=== PATIENT | female | born 1940 | race Caucasian/White ===

== ENCOUNTER → 2020-05-04 11:26 | Outpatient (CLI) | payer MEDICARE, SELFPAY ==
--- NOTE | ~2020-05-04 | MM_ITS ---
EXAMINATION: MM screening jojo BI w paco HISTORY: Screening mammogram TECHNIQUE: Craniocaudal and mediolateral oblique 3-D tomosynthesis images were obtained and synthetic 2-D images were generated. CAD analysis was submitted and interpreted. COMPARISON: 01/23/2019, 01/09/2018 and 12/28/2017 bilateral digital mammogram examinations BREAST PARENCHYMAL COMPOSITION: The breasts are heterogeneously dense, which may obscure small masses . FINDINGS: Occasional benign calcifications are noted. There is no evidence of suspicious mass, calcif ication, or architectural distortion to suggest malignancy in either breast. There has been no suspic ious interval change. IMPRESSION: 1. No mammographic evidence of malignancy. 2. Recommend routine screening mammography in one year. BI-RADS Category 1: Negative Reviewed, dictated and finalized at location A.
== END ==
PROVIDERS: PCP Internal Medicine; Visit Provider Obstetrics & Gynecology
DX: Z12.31 Encounter for screening mammogram for malignant neoplasm of breast (principal)
CPT/HCPCS: 77063; 77067

== ENCOUNTER 2020-06-28 16:04 | Emergency (ER) | payer MEDICARE, SELFPAY ==
--- NOTE | ~2020-06-28 | XR_ITS ---
EXAMINATION: XR shoulder RT min 2V EXAM DATE: 06/28/2020 17:22 INDICATION: Fall, right shoulder pain. TECHNIQUE: The following right shoulder projections obtained: frontal projection with internal rotati on, frontal projection with external rotation, Grashey, and scapular Y view (4+ views). There is no prior study for comparison. FINDINGS: Acute right-sided rib fractures. Glenohumeral and acromioclavicular joints have mild primar y osteoarthritis but are intact, without dislocation or fracture. IMPRESSION: 1. Right rib fractures. 2. Intact shoulder. Reviewed, dictated and finalized at location A.
--- NOTE | ~2020-06-28 | XR_ITS ---
EXAMINATION: XR ribs RT 2V w CXR 2V INDICATION: Right-sided rib pain after fall, initial encounter TECHNIQUE: Frontal and lateral views of the chest and 3 views of the right ribs were obtained. COMPARISON: None. FINDINGS: There is a comminuted and displaced fracture at the anterolateral aspect of the right fourt h rib. A fracture is also seen more posteriorly in the fourth rib. There is a segmental right fifth r ib fracture and a posterior, displaced fracture of the right sixth rib. No pneumothorax is identified . A small right pleural effusion is present. The cardiomediastinal silhouette is normal. There is mod erate thoracic spondylosis. IMPRESSION: 1. Right fourth through sixth rib fractures with segmental fractures of the fourth and fifth ribs. Reviewed, dictated and finalized at location A. IMPRESSION: 1. Right fourth through sixth rib fractures with segmental fractures of the fou rth and fifth ribs.
--- NOTE | 2020-06-28 16:08 | ED.FALL ---
HPI - Fall General Chief Complaint: Fall Stated Complaint: fall, pain rt ribs Time Seen by Provider: 06/28/20 16:08 Source: patient and family Mode of arrival: wheelchair Limitations: no limitations History of Present Illness HPI Narrative: Patient presented to the emergency department for evaluation of a ground-level fall. Patient states that she was walking to go to the bathroom when she lost her footing, falling onto the right side of the bathtub. Patient denies any head trauma or loss of consciousness. She is reporting right-sided rib pain and right shoulder pain. She denies numbness or weakness in the right upper extremity. Pain is dull, aching in nature. No central chest pain. No diaphoresis or shortness of breath. She does have pain with inspiration. She denies hip pain, lower extremity pain. Related Data Home Medications Medication Instructions Recorded Confirmed bimatoprost 0.01 % eye drops 1 drop EACH EYE DAILY 11/18/19 11/18/19 calcium 650 mg-vitamin D3 12.5 tablet PO 11/18/19 11/18/19 mcg-vitamin K 40 mcg chewable tablet cetirizine 10 mg tablet 5 mg PO DAILY 11/18/19 11/18/19 docusate sodium 100 mg capsule 100 mg PO DAILY 11/18/19 11/18/19 multivitamin 1 tablet PO DAILY 11/18/19 11/18/19 Benefiber (guar gum) 06/28/20 bimatoprost [Lumigan] drp 06/28/20 brimonidine [Alphagan P] drp 06/28/20 carbidopa-levodopa tablet 06/28/20 Allergies Allergy/AdvReac Type Severity Reaction Status Date / Time levofloxacin Allergy Unknown Rash Verified 06/28/20 16:50 prednisone Allergy Unknown Rash Verified 06/28/20 16:50 Sulfa (Sulfonamide Allergy Unknown Swelling Verified 06/28/20 16:50 Antibiotics) of Lip/Tongue/Throat sulfamethizole Allergy Unknown Rash Verified 06/28/20 16:50 sulfamethoxazole Allergy Unknown Rash Verified 06/28/20 16:50 trimethoprim Allergy Unknown Rash Verified 06/28/20 16:50 budesonide Allergy Swelling Verified 06/28/20 16:50 [From Rhinocort Aqua] of Lip/Tongue/Throat ciprofloxacin [From Cipro] Allergy Rash Verified 06/28/20 16:50 strawberry Allergy Unknown Verified 06/28/20 16:51 Review of Systems Review of Systems: Narrative: CONSTITUTIONAL: Denies fever EYES: Denies visual changes CARDIOVASCULAR: Denies chest pain, palpitations, or edema. RESPIRATORY: Denies cough or dyspnea. Reports pain with inspiration. GASTROINTESTINAL: Denies abdominal pain, nausea, vomiting, or diarrhea. GENITOURINARY: Denies dysuria or hematuria. SKIN: Denies rash or itching. ABrasion right elbow MUSCULOSKELETAL: Denies back pain, reports mild right shoulder pain NEUROLOGIC: Denies headache, numbness, or weakness. [facility] Past Medical History Medical History (Updated 06/28/20 @ 19:14 by Skylar Nicole MD) Benign essential hypertension Current moderate episode of major depressive disorder 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 episode Encounter for long-term (current) use of other medications Parkinson's disease Family History Family History (Updated 12/30/18 @ 07:57 by DOCTOR UNKNOWN) Father Depression, Onset Age: 70 Hypertension Social History Social History Alcohol intake: current Gender identity (if verbalized by the patient): Female Exam Narrative: Exam Narrative: Nursing note and vitals reviewed. CONSTITUTIONAL: The patient appears well-developed and well-nourished. No distress. HEAD: Normocephalic and atraumatic. EYES: PERRL, EOMI, normal conjunctiva, anicteric EARS: External ears clear bilaterally, no hemotympanum MOUTH: OP clear, no erythema, exudates NECK: midline trachea, supple, FROM. No midline cervical spinal tenderness. CARDIOVASCULAR: Normal rate, regular rhythm, normal heart sounds and intact distal pulses. No murmurs, rubs, gallops. PULMONARY: Effort normal and breath sounds normal. No respiratory distress. The patient has no wheezes, rales, ronchi. Mild right-sided chest wall tenderness, no crepitus or ecchymoses. AB
[2020-06-28 16:31] VITALS: BP 158/82; PULSE 73; RESP 16; TEMP 36.9; O2SAT 99
[2020-06-28 17:15] VITALS: RESP 18
[2020-06-28] MEDS: ACETAMINOPHEN 500 MG TABLET 1000 MG PO (17:45)
[2020-06-28] MEDS: TETANUS,DIPHTHERIA,AC PERTUSSIS ADULT (0.5 ML) BOOSTRIX IM (17:45)
[2020-06-28 19:42] VITALS: BP 148/78; PULSE 81; RESP 17; O2SAT 98
== END 2020-06-28 19:42 | disposition home or self-care (01) ==
PROVIDERS: Emergency Provider Emergency Medicine; PCP Internal Medicine
DX: S22.41XA Multiple fractures of ribs, right side, initial encounter for closed fracture (principal); Z23 Encounter for immunization; I10 Essential (primary) hypertension; G20 Parkinson's disease; W01.198A Fall on same level from slipping, tripping and stumbling with subsequent striking against other object, initial encounter
CPT/HCPCS: 71046; 71100; 73030; 90471; 90715; 99284; A9270

== ENCOUNTER 2020-07-09 10:46 | Outpatient (CLI) | payer MEDICARE, SELFPAY ==
--- NOTE | ~2020-07-09 | XR_ITS ---
EXAMINATION: XR hip RT min 2V DATE: 07/09/2020 11:50 INDICATION: Right hip pain. TECHNIQUE: 2 views of right hip were obtained. COMPARISON: None. FINDINGS: Bone alignment is normal. No fracture. Right hip joint space is normal. IMPRESSION: 1. Normal right hip. Reviewed, dictated and finalized at location A. IMPRESSION: 1. Normal right hip.
== END 2020-07-09 10:47 | disposition home or self-care (01) ==
LOC: ANHIMG 10:57
PROVIDERS: PCP Internal Medicine; Visit Provider Internal Medicine
DX: M25.559 Pain in unspecified hip (principal)
CPT/HCPCS: 73502

== ENCOUNTER 2020-07-28 10:29 | Observation (INO) | payer MEDICARE, SELFPAY ==
[2020-07-28] VITALS (34 sets, daily range): BP systolic 132–155; BP diastolic 64–87; PULSE 71–96; RESP 11–21; TEMP 36.1–36.8; O2SAT 95–100; BMI 25.1; BMI 21.7
--- NOTE | ~2020-07-28 | XR_ITS ---
EXAMINATION: XR hip RT 2V w AP pelvis DATE: 07/28/2020 14:06 INDICATION: Right hip pain post fall TECHNIQUE: Anteroposterior view of the pelvis and anteroposterior and frog-leg lateral views of the r ight hip were obtained. COMPARISON: 07/09/2020 FINDINGS: Alignment is normal. No fracture. Bilateral hip and right sacroiliac joint spaces are relatively pres erved. Mild left sacroiliac osteoarthritis. IMPRESSION: 1. Normal right hip. Reviewed, dictated and finalized at location A. NG HANGER SUPERVISOR IMPRESSION: 1. Normal right hip.
--- NOTE | ~2020-07-28 | XR_ITS ---
EXAMINATION: XR lumbar spine 2-3V DATE: 07/28/2020 14:06 INDICATION: Low back pain. Fall. TECHNIQUE: 3 views of lumbar spine were obtained. COMPARISON: None. FINDINGS: There is 5 degrees levocurvature of lumbar spine. Vertebral body heights are normal. Interv ertebral disc heights are normal. There are endplate osteophytes at most levels. There is multilevel severe facet joint osteoarthritis. IMPRESSION: 1. Mild lumbar spondylosis. Reviewed, dictated and finalized at location B. TRUCK DRIVER IMPRESSION: 1. Mild lumbar spondylosis.
--- NOTE | ~2020-07-28 | US_ITS ---
EXAMINATION: US art doppler w press LE DATE: 07/29/2020 13:13 INDICATION: Peripheral arterial disease. TECHNIQUE: Segmental pressures and plethysmographic and Doppler waveforms of the brachial and lower e xtremity arteries were obtained. COMPARISON: None. FINDINGS: Right and left brachial artery pressures of 145 mm Hg and 143 mm Hg, respectively, are concordant (no rmal difference <= 30 mmHg). The right ankle-brachial index (ADAM) is 1.13 (normal >= 0.9-1.0). The right great toe-brachial index (TBI) is 0.86 (normal >= 0.65). Arterial Doppler waveforms are biphasic from common femoral artery to the ankle. The left ADAM is 1.14. The left TBI is 1.21. Arterial Doppler waveforms are biphasic from common femor al artery to the ankle. IMPRESSION: 1. No significant arterial occlusive disease. Reviewed, dictated and finalized at location B. STANT SUPERINTENDENT FOR CURRICULUM
--- NOTE | ~2020-07-28 | XR_ITS ---
EXAMINATION: XR chest 1V DATE: 07/28/2020 14:06 INDICATION: Chest pain. Fall. TECHNIQUE: A single frontal view of the chest was obtained. COMPARISON: Chest 2 views 06/28/2020 FINDINGS: There is mild scarring at the lung apices. No pleural effusion or pneumothorax. The heart s ize is normal. There are healing fractures of right fourth, fifth, and sixth ribs. IMPRESSION: 1. Healing subacute fractures of right fourth-sixth ribs. Reviewed, dictated and finalized at location B. E ELECTRICIAN
--- NOTE | ~2020-07-28 | US_ITS ---
EXAMINATION: US venous doppler [facility] DATE: 07/29/2020 13:12 INDICATION: Right lower limb localized edema. TECHNIQUE: Grayscale ultrasound images without and with compression and Doppler ultrasound images of the bilateral lower extremity veins were obtained. COMPARISON: None. FINDINGS: The visualized portions of right common femoral vein, profunda (deep) femoral vein, femoral vein, pop liteal vein, peroneal veins, posterior tibial veins, and greater saphenous vein outflow are patent. The visualized portions of left common femoral vein, profunda femoral vein, femoral vein, popliteal v ein, peroneal veins, posterior tibial veins, and greater saphenous vein outflow are patent. IMPRESSION: 1. No deep venous thrombosis. Reviewed, dictated and finalized at location B. SERVICER
--- NOTE | ~2020-07-28 | CT_ITS ---
EXAMINATION: CT abdomen pelvis w con DATE: 07/30/2020 07:43 INDICATION: Right hip pain. Fall. TECHNIQUE: Computed tomography (CT) of the abdomen and pelvis was performed with 100 mL Omnipaque 350 intravenous contrast. Automated exposure control and iterative reconstruction technique were employe d. The dose-length product was 259.52 mGy-cm. COMPARISON: CT abdomen and pelvis 11/20/2012, pelvis and right hip radiographs 07/28/2020 FINDINGS: The visualized portions of the lung bases demonstrate mild atelectasis. There is a trace ri ght pleural effusion. The heart size is normal. No pericardial effusion. There is an 8 mm cyst in the liver. The gallbladder, spleen, pancreas, adrenal glands, and right kidney are normal. There is a 3. 9 cm cyst in left kidney. There are no dilated loops of bowel. The appendix is not visualized. There is a large volume of stool in the colon. There are no pathologically enlarged lymph nodes. There is n o free intraperitoneal fluid. There is mild osteoarthritis of the hips. There is mild lumbar spondylo sis. IMPRESSION: 1. Mild osteoarthritis of the hips. Reviewed, dictated and finalized at location B. CLEANER
--- NOTE | 2020-07-28 11:26 | ED.GENADULT ---
HPI - General Adult General Chief complaint: Extremity Injury, Lower Stated complaint: R HIP PAIN S/P FALL Time Seen by Provider: 07/28/20 10:47 Source: patient, family and EMS Limitations: no limitations History of Present Illness HPI narrative: Patient is 80 years old white female, had a fall while trying to get off her roller walker. Complaining of right hip pain. Patient denies any head, neck, or back injury. History of multiple falls secondary to parkinsonism. Patient arrived to the ED with her . Was seen by her neurologist 1 week ago with new adjustment of her parkinsonism medication Related Data Home Medications Medication Instructions Recorded Confirmed bimatoprost 0.01 % eye drops 1 drop EACH EYE DAILY 11/18/19 07/09/20 calcium 650 mg-vitamin D3 12.5 tablet PO 11/18/19 07/09/20 mcg-vitamin K 40 mcg chewable tablet cetirizine 10 mg tablet 5 mg PO DAILY 11/18/19 07/09/20 docusate sodium 100 mg capsule 100 mg PO DAILY 11/18/19 07/09/20 multivitamin 1 tablet PO DAILY 11/18/19 07/09/20 Benefiber (guar gum) 06/28/20 07/09/20 bimatoprost [Lumigan] drp 06/28/20 07/09/20 brimonidine [Alphagan P] drp 06/28/20 07/09/20 carbidopa-levodopa tablet 06/28/20 07/09/20 Allergies Allergy/AdvReac Type Severity Reaction Status Date / Time levofloxacin Allergy Unknown Rash Verified 06/28/20 16:50 prednisone Allergy Unknown Rash Verified 06/28/20 16:50 Sulfa (Sulfonamide Allergy Unknown Swelling Verified 06/28/20 16:50 Antibiotics) of Lip/Tongue/Throat sulfamethizole Allergy Unknown Rash Verified 06/28/20 16:50 sulfamethoxazole Allergy Unknown Rash Verified 06/28/20 16:50 trimethoprim Allergy Unknown Rash Verified 06/28/20 16:50 budesonide Allergy Swelling Verified 06/28/20 16:50 [From Rhinocort Aqua] of Lip/Tongue/Throat ciprofloxacin [From Cipro] Allergy Rash Verified 06/28/20 16:50 strawberry Allergy Unknown Verified 06/28/20 16:51 Review of Systems Review of Systems: Narrative: CONSTITUTIONAL: Denies fever, chills, or sweats. EYES: Denies visual changes, redness, or discharge. ENT: Denies rhinorrhea, congestion, sore throat, or otalgia. CARDIOVASCULAR: Denies chest pain, palpitations, or edema. RESPIRATORY: Denies cough or dyspnea. GASTROINTESTINAL: Denies abdominal pain, nausea, vomiting, or diarrhea. GENITOURINARY: Denies dysuria or hematuria. SKIN: Denies rash or itching. MUSCULOSKELETAL: Denies back pain, joint pain, or myalgia. NEUROLOGIC: Denies headache, numbness, or weakness. PSYCHIATRIC: Denies anxiety or depression. [facility] Past Medical History Medical History Benign essential hypertension Current moderate episode of major depressive disorder 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 episode Encounter for long-term (current) use of other medications Parkinson's disease Family History Family History Father Depression, Onset Age: 70 Hypertension Social History Social History Alcohol intake: current Gender identity (if verbalized by the patient): Female Exam Narrative: Exam Narrative: General appearance: Well-developed, well-nourished, hearing impairment, at the bedside Skin: Normal color Head: Normocephalic, nontraumatic Eyes: Clear conjunctiva ENT: Oropharynx normal, ears normal, nose normal Neck: Supple, nontender Chest and respiratory: Airway patent, no respiratory distress, no accessory muscle use Heart: Regular rate/rhythm Abdomen: Soft, nontender, no organomegaly, quiet bowel sounds Vascular: Normal peripheral pulses, normal capillary refill. Musculoskeletal: Diffuse tenderness of the right hip and across lower back. No bruises, no swelling, no deformity Neurologic: Alert and oriented ?3, CONSERVATION ENGINEER is normal as tested, no gross motor deficit
[2020-07-28] MEDS: MORPHINE SULFATE (*CRX) 4 MG/ML INJ IV PUSH (13:10)
[2020-07-28] MEDS: ONDANSETRON INJ 4 MG/2 ML VIAL IV PUSH (13:11)
--- NOTE | 2020-07-28 13:19 | ECG_ITS ---
Measurements Intervals [place] Rate: 84 P: 86 AR: 151 QRS: 20 QRSD: 89 T: 59 QT: 375 QTc: 445 Interpretive Statements SINUS RHYTHM POSSIBLE LEFT ATRIAL ENLARGEMENT BASELINE ARTIFACT- II, III, AVF BORDERLINE ECG Electronically Signed On 07-28-2020 17:12:28 ASPHALT SPREADER by Farhan Truong D.O.
[2020-07-28 14:36] LABS: Hematocrit 38.6 % (37.0-47.0); Mean Corpuscular HGB Conc 33.7 g/dl (32-36); Mean Corpuscular Hemoglobin 30.5 pg (26-34); Mean Corpuscular Volume 90.6 fl (80-100); Mean Platelet Volume 9.8 fl (7.4-10.4); Platelet Count Result 263 k/mm3 (150-375); Red Blood Count 4.26 M/mm3 (4.2-5.4); Red Cell Distribution Width 15.1 % (11.5-14.5); White Blood Count 6.3 K/mm3 (4.5-10.0)
[2020-07-28 14:41] LABS: Add Urine Microscopic? NO; Appearance Urine Clear (Clear); Bilirubin Urine Negative (Negative); Blood Urine Negative (Negative); Color Urine Colorless (Yellow); Glucose Urine UA Negative (Negative); Ketones Urine Negative (Negative); Leukocyte Esterase Ur Negative LEU/UL (Negative); Nitrate Urine Negative (Negative); Protein Urine Negative (Negative); Specific Grav Ur 1.009 (1.001-1.035); Urobilinogen Urine Negative mg/dL (<2.0)
[2020-07-28 14:51] LABS: Alanine Aminotransferase 7 U/L (4-35); Albumin Level 4.3 g/dL (3.5-5.1); Alkaline Phosphatase 79 U/L (38-126); Anion Gap 5 mmol/L (8-16); Aspartate Amino Transferase 41 U/L (14-36); Bilirubin,Total 0.5 mg/dL (0.2-1.3); Blood Urea Nitrogen 27 mg/dL (7-17); Calcium 9.4 mg/dL (8.4-10.2); Carbon Dioxide 34 mmol/L (22-30); Chloride 102 mmol/L (98-107); Estimated CRCL calculation 45 ml/min; Estimated Glomerular Filt Rate > 60; Glucose 102 mg/dL (65-105); Potassium 3.7 mmol/L (3.4-5.0); Sodium 141 mmol/L (137-145)
[2020-07-28 15:12] LABS: Platelet Estimate Adequate (Adequate)
--- NOTE | 2020-07-28 16:34 | PCCCNOTE ---
Spoke with pt and in ED. They would like short term SNF with rehab if possible and [facility] assisted [facility]. I attempted to contact Fernie (Nela) and Zoe (Ruy) and left message. Nobody called back yet. also wanted to know if [facility] in [place] would be a option. Pt and OK with gong home and trying to get placement but Dr Lundberg believed the better course would be to admit. home phone is [phone]; he has a cell phone but I did not get that number.
--- NOTE | 2020-07-28 17:34 | PCCCNOTE ---
Fernie tested back and indicated that he can help.
--- NOTE | 2020-07-28 18:13 | PC.NURSE ---
This patient, Ana Luisa Martinez, was admitted to Medical Room 340-01. Patient/family oriented to hospital policies and general routines including ID bracelet, bed and alarms, visiting hours, pain management, procedures, bathroom and other care routines, personal items, smoking policy, room service/diet, and visiting hours. Information on how to activate the Rapid Response Team has been discussed. Patient/Family are encouraged to report perceived risks to care and to ask questions if they do not understand what they are told or what they should do.
--- NOTE | 2020-07-28 21:14 | PM.IMHP ---
H&P: HPI History of Present Illness Date/Time: 07/28/20 21:14 Chief complaint: Fall/Parkinsonism/Right Hip Pain Narrative: Ana Luisa Martinez is a 80 year old female who lives with her and has Parkinson's. The patient recently had her Parkinson's medication increased due to her frequent falls. On 06/28/2020 where she had fallen and had 3 rib fractures at that time. The patient stated that she has not had any pain from that she is complaining of right hip pain. The right leg is swollen and she has a purple 10 collar to her and a weak pulse.the patient had x-ray it was read as a normal hip. Today. She had turned around and went to sit down with that but fell on the floor. A she denies hitting her head and has no complaints of any pain to her head her neurologist changed her Parkinson's medication about a week ago. Patient tells me that her hip was hurting her prior to her last fall when she fractured her ribs. She does not recall being checked for PE or DVT or having a DVT but both of her children have factor 5 Leiden. The right leg is twice as big as the left. Patient is holding her thigh complaining of pain she has weak pulses that right leg Zofran in the emergency room as well as morphine. Urine is negative healing subacute fractures of right 4th through 6th ribs. Lumbar spondylosis. Leg and is moving the right leg very slowly. There is no distortion other than the purple color on the bottom of foot. Possibly just hematoma. Patient is being admitted for observation date of service 07/28/2020 Review of Systems Review of Systems: All systems reviewed & are unremarkable except as noted in HPI and below Constitutional: Constitutional: Reports as per HPI and Reports no additional constitutional complaints Eyes: Eyes: Reports as per HPI and Reports no additional eye complaints ENT: Reports system reviewed and no additional complaints, except as documented and Reports Normal hearing present Cardiovascular: Cardiovascular: Reports no additional cardiovascular complaints Respiratory: Respiratory: Reports no additional respiratory complaints and Reports no additional respiratory complaints Gastrointestinal: Gastrointestinal: Reports as per HPI and Reports no additional gastrointestinal complaints Musculoskeletal: Musculoskeletal: Reports no additional musculoskeletal complaints Integumentary/Breasts: Skin/Breast: Reports system reviewed and no additional complaints, except as docu and Reports as per HPI Neurologic: Reports system reviewed and no additional complaints, except as documented, Reports as per HPI and Reports Normal hearing present Psychiatric: Psychiatric: Reports no additional psychiatric complaints and Reports as per HPI Endocrine: Endocrine: Reports no additional endocrine complaints Hematologic/Lymphatic: Hematologic/Lymphatic: Reports no additional hematologic/lymphatic complaints Allergic/Immunologic: Allergic/Immunologic: Reports no additional allergic/immunologic complaints [facility] Past Medical History Medical History (Updated 07/28/20 @ 21:27 by Lin Witt NP) Benign essential hypertension Current moderate episode of major depressive disorder 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 episode Depression with anxiety Encounter for long-term (current) use of other medications Glaucoma Oral cancer With radiation and surgery Overactive bladder Parkinson's disease Surgical History Surgical History (Updated 07/28/20 @ 21:27 by Lin Witt NP) H/O skin graft Left thigh H/O: hysterectomy History of ankle surgery On the left History of appendectomy When she had a hysterectomy History of oral surgery Secondary to cancer Family History Family History (Updated 07/28/20 @ 21:28 by Lin Witt NP) Father Depression, Onset Age: 70 Hypertension Suicide Son Factor 5 Leiden mutation, heterozygous Daughter Factor 5 Leiden mutation, heterozygous Mother Cancer Social History Social History (Updat
[2020-07-28] MEDS: BRIMONIDINE TARTRATE 0.2% OP SOLN 5 ML BTL 1 DROP EACH EYE (22:04)
[2020-07-28] MEDS: CARBIDOPA/LEVODOPA 25/100 MG TABLET 2 TABLET PO (22:04)
[2020-07-28] MEDS: OXYBUTYNIN CHLORIDE 5 MG TABLET PO (22:04)
[2020-07-28] MEDS: TIMOLOL MALEATE 0.5% OP SOLN 5 ML BOTTLE 1 DROP EACH EYE (22:04)
[2020-07-29 05:54] LABS: Basophils Percent Auto 0.4 % (0.2-1.2); Eosinophils Absolute Auto 0.2 K/mm3 (0-0.3); Eosinophils Percent Auto 4.1 % (0-4.4); Hematocrit 37.2 % (37.0-47.0); Hemoglobin 12.5 g/dL (12.0-15.0); Immature Granulocyte Absolute 0.03 K/mm3 (0.00-0.031); Immature Granulocyte Percent A 0.6 % (0-0.5); Lymphocytes Absolute Auto 0.46 K/mm3 (0.9-3.2); Lymphocytes Percent Auto 8.7 % (18.3-44.2); Mean Corpuscular HGB Conc 33.6 g/dl (32-36); Mean Corpuscular Volume 89.2 fl (80-100); Mean Platelet Volume 10.4 fl (7.4-10.4); Monocytes Percent Auto 19.6 % (2.6-8.5); Neutrophils Absolute Auto 3.5 K/mm3 (1.3-6.7); Neutrophils Percent Auto 66.6 % (45.5-73.1); Platelet Count Result 261 k/mm3 (150-375); Red Blood Count 4.17 M/mm3 (4.2-5.4); Red Cell Distribution Width 14.9 % (11.5-14.5); White Blood Count 5.3 K/mm3 (4.5-10.0)
[2020-07-29 05:58] LABS: Alanine Aminotransferase 6 U/L (4-35); Albumin Level 3.7 g/dL (3.5-5.1); Alkaline Phosphatase 73 U/L (38-126); Anion Gap 1 mmol/L (8-16); Aspartate Amino Transferase 48 U/L (14-36); Bilirubin,Total 0.5 mg/dL (0.2-1.3); Blood Urea Nitrogen 22 mg/dL (7-17); CRP 1.8 mg/dL (<1.0); Calcium 9.2 mg/dL (8.4-10.2); Carbon Dioxide 37 mmol/L (22-30); Chloride 98 mmol/L (98-107); Estimated CRCL calculation 40 ml/min; Estimated Glomerular Filt Rate > 60; Glucose 94 mg/dL (65-105); Magnesium 2.4 mg/dL (1.6-2.3); Potassium 4.3 mmol/L (3.4-5.0); Sodium 136 mmol/L (137-145)
[2020-07-29 06:00] VITALS: BP 145/79; PULSE 80; RESP 16; TEMP 36.4; O2SAT 100
[2020-07-29] MEDS: CARBIDOPA/LEVODOPA 25/100 MG TABLET 2 TABLET PO ×4 (08:15→21:48)
[2020-07-29] MEDS: BRIMONIDINE TARTRATE 0.2% OP SOLN 5 ML BTL 1 DROP EACH EYE ×2 (08:15→21:48)
[2020-07-29] MEDS: CITALOPRAM HYDROBROMIDE 20 MG TABLET PO (08:16)
[2020-07-29] MEDS: LORATADINE 5 MG TABLET PO (08:16)
[2020-07-29] MEDS: LATANOPROST 0.005% OP SOLN 2.5 ML BTL 1 DROP EACH EYE (08:16)
[2020-07-29] MEDS: CHOLECALCIFEROL 1,000 UNITS TABLET 2000 UNITS PO (08:16)
[2020-07-29] MEDS: ENOXAPARIN 40 MG/0.4 ML SYRINGE SUB-Q (08:16)
[2020-07-29] MEDS: TIMOLOL MALEATE 0.5% OP SOLN 5 ML BOTTLE 1 DROP EACH EYE ×2 (08:16→21:48)
[2020-07-29] MEDS: MULTIVITAMINS THERAPEUTIC TAB (*BKC) 1 TABLET PO (08:17)
[2020-07-29] MEDS: NIFEdipine 30 MG TAB.ER.24 PO (08:17)
--- NOTE | 2020-07-29 10:46 | WPDNEURCNPN ---
Assessment and Plan Assessment and plan (1) Depression with anxiety: Code(s): F41.8 - Other specified anxiety disorders Status: Chronic (2) Unable to walk: Code(s): R26.2 - Difficulty in walking, not elsewhere classified Status: Acute (3) Parkinson's disease: Code(s): G20 - Parkinson's disease Status: Acute Additional Plan as far as the anti parkinsonian medications are concerned she receiving the appropriate dosage she can be evaluated by the physical therapy to help her with the gait and ambulation and her and her right lower extremity needs to be checked for the chronic DVT Consult date: 07/29/20 Time Seen: 10:15 HPI: Ana Luisa Martinez is a 80 year old female Has been admitted to the hospital with the complaints of fall in addition to the underlying diagnosis of Parkinson's disease, most recently her medications were adjusted in addition she has fallen several times resulting in the rib fractures. on the day of admission this time she had turned around and went to sit down but fell on the floor .additionally she complained of pain in her hip she herself has not been checked for the PE or DVT but both of her children have factor 5 laden and her right leg is big as compared to the left lower extremity she does have ongoing history of hypertension, anxiety with depression, glaucoma and bladder dysfunction in addition to the history of oral cancer for which she has undergone radiation treatment and surgery Review of Systems Review of Systems: All systems reviewed & are unremarkable except as noted in HPI and below PMFSH Past Medical History Medical History Benign essential hypertension Current moderate episode of major depressive disorder 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 episode Depression with anxiety Encounter for long-term (current) use of other medications Glaucoma Oral cancer With radiation and surgery Overactive bladder Parkinson's disease Surgical History Surgical History H/O skin graft Left thigh H/O: hysterectomy History of ankle surgery On the left History of appendectomy When she had a hysterectomy History of oral surgery Secondary to cancer Family History Family History Father Depression, Onset Age: 70 Hypertension Suicide Son Factor 5 Leiden mutation, heterozygous Daughter Factor 5 Leiden mutation, heterozygous Mother Cancer Social History Social History Social History: The patient stated that she quit smoking over 50 years ago. She has 3 children. The patient is a retired high school combination teacher no alcohol or illicit drugs. Her is a durable power of erisa attorney. She desires to be a full code. Smoking status: Former smoker Alcohol intake: current Substance use: never Gender identity (if verbalized by the patient): Female Spiritual care concerns: No Meds Home Medications and Allergies Home Medications Medication Instructions Recorded Confirmed Type bimatoprost 0.01 % eye drops 1 drop EACH EYE DAILY 11/18/19 07/28/20 History calcium 650 mg-vitamin D3 12.5 1 tablet PO DAILY 11/18/19 07/28/20 History mcg-vitamin K 40 mcg chewable tablet cetirizine 10 mg tablet 5 mg PO DAILY 11/18/19 07/28/20 History docusate sodium 100 mg capsule 100 mg PO DAILY PRN 11/18/19 07/28/20 History multivitamin 1 tablet PO DAILY 11/18/19 07/28/20 History nifedipine 30 mg tablet,extended 30 mg PO DAILY #90 tablet 01/02/20 07/28/20 Rx release Benefiber (guar gum) 2 tsp PO DAILY PRN 06/28/20 07/28/20 History carbidopa-levodopa 2 tablet PO QID 06/28/20 07/28/20 History citalopram 20 mg tablet 20 mg PO DAILY #90 tablet 06/28/20 07/28/20 Rx brimonidine-timolol [Combigan] 1 drp OPHTHALMIC (EYE) Q12H 07/28/20 07/28/20 History cholecalciferol (vitamin D3) 50 mcg PO DAILY 07/28/20
--- NOTE | 2020-07-29 10:47 | PCPTNOTE ---
Attempted PT evaluation. Hold per nursing. Awaiting doppler. Will attempt again when appropriate.
--- NOTE | 2020-07-29 11:08 | PCOTNOTE ---
Attempted OT evaluation. Patient awaiting Doppler. Will attempt when appropriate.
[2020-07-29 14:44] VITALS: BP 131/72; PULSE 80; RESP 16; TEMP 35.7; O2SAT 96
--- NOTE | 2020-07-29 15:10 | PM.IMPN ---
Progress Note: A&P Assessment and Plan (1) Hip pain: Code(s): M25.559 - Pain in unspecified hip Status: Acute Assessment and Plan: Patient is holding her leg up in complaining of right thigh pain. Her right leg is larger than the left and patient's tells me that she has never had a blood clot in has never been checked for 1. Although her children have the factor 5 laden deficiency. She had 2 x-rays since her last 2 falls and it was found to be negative. She has a purplish black color on the bottom of her foot a took pictures and showed it to her and she did not tell me anything about any black slippers however the nurse told me that she had a new pair black slippers. However the left foot is not discolored but the bottom the right foot is. She has a weak pulse to the right and edema so I will check her for venous Doppler as well as arterial Doppler. The patient tells me that she has had right hip pain prior to any fall. 07/29/20 15:10 Patient is 80-year-old female with a history of Parkinson's recently patient medication were changed due to fall apparently patient had a fall on June 26 resulting in fracture of right 4th 5th and 6th ribs, patient also right hip and lower extremity pain and swelling patient also has a bruising bluish tint along her right foot on medial aspect, patient's children are factor 5 Leiden deficient to further evaluate patient had arterial and venous Doppler of the right lower extremity which essentially normal. Patient was seen by Neurologist and suggested patient Parkinson medicine appropriate and does not need to be changed recommended patient will benefit acute rehab, will continue to monitor have PT OT evaluate the patient and further recommendation to follow. (2) Parkinson's disease: Code(s): G20 - Parkinson's disease Status: Acute Assessment and Plan: I did consult Neurology to evaluate her medications. Will continue with her home medications of carbidopa levodopa. PT and OT evaluation as well. e learning coordinator for possible rehab. (3) Depression with anxiety: Code(s): F41.8 - Other specified anxiety disorders Status: Chronic Assessment and Plan: P.r.n. Ativan (4) Overactive bladder: Code(s): N32.81 - Overactive bladder Status: Chronic Assessment and Plan: Continue Oxybutin (5) Benign essential hypertension: Code(s): I10 - Essential (primary) hypertension Status: Chronic Assessment and Plan: Continue with nifedipine. (6) Glaucoma: Code(s): H40.9 - Unspecified glaucoma Status: Chronic Assessment and Plan: Continue with home eye drops. Subjective Date/time seen: 07/29/20 15:10 Patient is 80-year-old female with a history of Parkinson's recently patient medication were changed due to fall apparently patient had a fall on June 26 resulting in fracture of right 4th 5th and 6th ribs, patient also right hip and lower extremity pain and swelling patient also has a bruising bluish tint along her right foot on medial aspect, patient's children are factor 5 Leiden deficient to further evaluate patient had arterial and venous Doppler of the right lower extremity which essentially normal. Patient was seen by Neurologist and suggested patient Parkinson medicine appropriate and does not need to be changed recommended patient will benefit acute rehab, will continue to monitor have PT OT evaluate the patient and further recommendation to follow. Review of Systems Review of Systems: All systems reviewed & are unremarkable except as noted in HPI and below Exam Narrative: Exam Narrative: Elderly frail chronically ill Patient is comfortable, NAD HEENT: eyes are clear and none icteric LUNGS: Bilateral fair entry with minimal rhonchi HEART: RR S1S2 ABD: BS+, Soft and nontender Lower extremities: no edema MS: Right lower extremity appears edema right foot medial aspect appears bruising and has a bl
[2020-07-29 20:40] VITALS: BP 144/81; PULSE 73; RESP 16; TEMP 36.4; O2SAT 99
[2020-07-29] MEDS: DOCUSATE SODIUM 100 MG CAPSULE PO (21:48)
[2020-07-29] MEDS: OXYBUTYNIN CHLORIDE 5 MG TABLET PO (21:48)
[2020-07-30] MEDS: oxyCODONE/ACETAMINOPHEN (*CRX) 5-325 MG TABLET 1 TABLET PO ×2 (05:45→20:30)
[2020-07-30 06:00] VITALS: BP 148/71; PULSE 75; RESP 16; TEMP 36.2; O2SAT 100
[2020-07-30 06:03] LABS: Hematocrit 37.9 % (37.0-47.0); Hemoglobin 12.9 g/dL (12.0-15.0); Mean Corpuscular Hemoglobin 30.9 pg (26-34); Mean Corpuscular Volume 90.9 fl (80-100); Mean Platelet Volume 10.2 fl (7.4-10.4); Platelet Count Result 262 k/mm3 (150-375); Red Blood Count 4.17 M/mm3 (4.2-5.4); Red Cell Distribution Width 15.1 % (11.5-14.5); White Blood Count 5.7 K/mm3 (4.5-10.0)
[2020-07-30 06:30] LABS: Anion Gap 5 mmol/L (8-16); Blood Urea Nitrogen 21 mg/dL (7-17); Calcium 8.7 mg/dL (8.4-10.2); Carbon Dioxide 34 mmol/L (22-30); Chloride 99 mmol/L (98-107); Estimated CRCL calculation 45 ml/min; Estimated Glomerular Filt Rate > 60; Glucose 101 mg/dL (65-105); Potassium 3.2 mmol/L (3.4-5.0); Sodium 138 mmol/L (137-145)
[2020-07-30] MEDS: BRIMONIDINE TARTRATE 0.2% OP SOLN 5 ML BTL 1 DROP EACH EYE ×2 (07:59→20:29)
[2020-07-30] MEDS: TIMOLOL MALEATE 0.5% OP SOLN 5 ML BOTTLE 1 DROP EACH EYE ×2 (07:59→20:29)
[2020-07-30] MEDS: LORATADINE 5 MG TABLET PO (07:59)
[2020-07-30] MEDS: CHOLECALCIFEROL 1,000 UNITS TABLET 2000 UNITS PO (07:59)
[2020-07-30] MEDS: CITALOPRAM HYDROBROMIDE 20 MG TABLET PO (08:00)
[2020-07-30] MEDS: NIFEdipine 30 MG TAB.ER.24 PO (08:00)
[2020-07-30] MEDS: CARBIDOPA/LEVODOPA 25/100 MG TABLET 2 TABLET PO ×4 (08:00→20:30)
[2020-07-30] MEDS: PSYLLIUM POWDER PACKET 1 PACKET BY MOUTH (08:01)
[2020-07-30] MEDS: LATANOPROST 0.005% OP SOLN 2.5 ML BTL 1 DROP EACH EYE (08:02)
[2020-07-30] MEDS: ENOXAPARIN 40 MG/0.4 ML SYRINGE SUB-Q (08:02)
[2020-07-30] MEDS: MULTIVITAMINS THERAPEUTIC TAB (*BKC) 1 TABLET PO (08:03)
[2020-07-30] MEDS: POTASSIUM CHLORIDE 20 MEQ PACKET (FOR LIQUID) 40 MEQ PO (11:23)
[2020-07-30 13:04] VITALS: O2SAT 99
[2020-07-30 14:00] VITALS: BP 123/58; PULSE 84; RESP 16; TEMP 36.4; O2SAT 98
--- NOTE | 2020-07-30 16:43 | PM.IMPN ---
Progress Note: A&P Assessment and Plan (1) Hip pain: Code(s): M25.559 - Pain in unspecified hip Status: Acute Assessment and Plan: Patient is holding her leg up in complaining of right thigh pain. Her right leg is larger than the left and patient's tells me that she has never had a blood clot in has never been checked for 1. Although her children have the factor 5 laden deficiency. She had 2 x-rays since her last 2 falls and it was found to be negative. She has a purplish black color on the bottom of her foot a took pictures and showed it to her and she did not tell me anything about any black slippers however the nurse told me that she had a new pair black slippers. However the left foot is not discolored but the bottom the right foot is. She has a weak pulse to the right and edema so I will check her for venous Doppler as well as arterial Doppler. The patient tells me that she has had right hip pain prior to any fall. 07/30/20 16:43 Patient is 80-year-old female with a history of Parkinson's recently patient medication were changed due to fall apparently patient had a fall on June 26 resulting in fracture of right 4th 5th and 6th ribs, patient also right hip and lower extremity pain and swelling patient also has a bruising bluish tint along her right foot on medial aspect, patient's children are factor 5 Leiden deficient to further evaluate patient had arterial and venous Doppler of the right lower extremity which essentially normal. Patient was seen by Neurologist and suggested patient Parkinson medicine appropriate and does not need to be changed recommended patient will benefit acute rehab, will continue to monitor have PT OT evaluate the patient and further recommendation to follow. Today patient is feeling much better able to participate in physical therapy, will continue to monitor the patient patient will benefit going to acute rehab factor 5 Leiden is pending (2) Parkinson's disease: Code(s): G20 - Parkinson's disease Status: Acute Assessment and Plan: I did consult Neurology to evaluate her medications. Will continue with her home medications of carbidopa levodopa. PT and OT evaluation as well. auto club safety program coordinator for possible rehab. (3) Depression with anxiety: Code(s): F41.8 - Other specified anxiety disorders Status: Chronic Assessment and Plan: P.r.n. Ativan (4) Overactive bladder: Code(s): N32.81 - Overactive bladder Status: Chronic Assessment and Plan: Continue Oxybutin (5) Benign essential hypertension: Code(s): I10 - Essential (primary) hypertension Status: Chronic Assessment and Plan: Continue with nifedipine. (6) Glaucoma: Code(s): H40.9 - Unspecified glaucoma Status: Chronic Assessment and Plan: Continue with home eye drops. Subjective Date/time seen: 07/30/20 16:43 Patient is 80-year-old female with a history of Parkinson's recently patient medication were changed due to fall apparently patient had a fall on June 26 resulting in fracture of right 4th 5th and 6th ribs, patient also right hip and lower extremity pain and swelling patient also has a bruising bluish tint along her right foot on medial aspect, patient's children are factor 5 Leiden deficient to further evaluate patient had arterial and venous Doppler of the right lower extremity which essentially normal. Patient was seen by Neurologist and suggested patient Parkinson medicine appropriate and does not need to be changed recommended patient will benefit acute rehab, will continue to monitor have PT OT evaluate the patient and further recommendation to follow. Today patient is feeling much better able to participate in physical therapy, will continue to monitor the patient patient will benefit going to acute rehab factor 5 Leiden is pending Review of Systems Review of Systems: All systems reviewed & are unremarkable except as noted in HPI and
[2020-07-30] MEDS: OXYBUTYNIN CHLORIDE 5 MG TABLET PO (20:29)
[2020-07-30 21:49] VITALS: BP 131/65; PULSE 68; RESP 16; TEMP 36.6; O2SAT 96
[2020-07-31 05:49] LABS: Hematocrit 35.5 % (37.0-47.0); Hemoglobin 12.1 g/dL (12.0-15.0); Mean Corpuscular HGB Conc 34.1 g/dl (32-36); Mean Corpuscular Volume 87.9 fl (80-100); Mean Platelet Volume 10.6 fl (7.4-10.4); Platelet Count Result 245 k/mm3 (150-375); Red Blood Count 4.04 M/mm3 (4.2-5.4); Red Cell Distribution Width 14.9 % (11.5-14.5); White Blood Count 4.9 K/mm3 (4.5-10.0)
[2020-07-31 06:00] VITALS: BP 152/73; PULSE 63; RESP 16; TEMP 37; O2SAT 96
[2020-07-31] MEDS: oxyCODONE/ACETAMINOPHEN (*CRX) 5-325 MG TABLET 1 TABLET PO ×3 (06:05→22:15)
[2020-07-31 07:01] LABS: Anion Gap 3 mmol/L (8-16); Blood Urea Nitrogen 23 mg/dL (7-17); Calcium 8.9 mg/dL (8.4-10.2); Carbon Dioxide 30 mmol/L (22-30); Chloride 102 mmol/L (98-107); Estimated CRCL calculation 52 ml/min; Estimated Glomerular Filt Rate > 60; Glucose 101 mg/dL (65-105); Potassium 3.4 mmol/L (3.4-5.0); Sodium 135 mmol/L (137-145)
[2020-07-31] MEDS: CARBIDOPA/LEVODOPA 25/100 MG TABLET 2 TABLET PO ×4 (07:55→22:15)
[2020-07-31] MEDS: BRIMONIDINE TARTRATE 0.2% OP SOLN 5 ML BTL 1 DROP EACH EYE ×2 (07:55→22:15)
[2020-07-31] MEDS: ENOXAPARIN 40 MG/0.4 ML SYRINGE SUB-Q (07:56)
[2020-07-31] MEDS: CHOLECALCIFEROL 1,000 UNITS TABLET 2000 UNITS PO (07:56)
[2020-07-31] MEDS: CITALOPRAM HYDROBROMIDE 20 MG TABLET PO (07:56)
[2020-07-31] MEDS: TIMOLOL MALEATE 0.5% OP SOLN 5 ML BOTTLE 1 DROP EACH EYE ×2 (07:57→22:15)
[2020-07-31] MEDS: LORATADINE 5 MG TABLET PO (07:57)
[2020-07-31] MEDS: NIFEdipine 30 MG TAB.ER.24 PO (07:57)
[2020-07-31] MEDS: MULTIVITAMINS THERAPEUTIC TAB (*BKC) 1 TABLET PO (07:57)
[2020-07-31] MEDS: LATANOPROST 0.005% OP SOLN 2.5 ML BTL 1 DROP EACH EYE (07:57)
[2020-07-31] MEDS: POTASSIUM CHLORIDE 20 MEQ PACKET (FOR LIQUID) 40 MEQ PO (10:58)
[2020-07-31] MEDS: LIDOCAINE 5% PATCH 2 PATCH TRANSDERM (10:58)
[2020-07-31] MEDS: DOCUSATE SODIUM 100 MG CAPSULE PO (12:20)
[2020-07-31 13:19] LABS: SARS-CoV-2 RNA PCR Negative
[2020-07-31 14:00] VITALS: BP 147/93; PULSE 69; RESP 16; TEMP 37.1; O2SAT 97
--- NOTE | 2020-07-31 16:47 | PM.IMPN ---
Progress Note: A&P Assessment and Plan (1) Hip pain: Code(s): M25.559 - Pain in unspecified hip Status: Acute Assessment and Plan: Patient is holding her leg up in complaining of right thigh pain. Her right leg is larger than the left and patient's tells me that she has never had a blood clot in has never been checked for 1. Although her children have the factor 5 laden deficiency. She had 2 x-rays since her last 2 falls and it was found to be negative. She has a purplish black color on the bottom of her foot a took pictures and showed it to her and she did not tell me anything about any black slippers however the nurse told me that she had a new pair black slippers. However the left foot is not discolored but the bottom the right foot is. She has a weak pulse to the right and edema so I will check her for venous Doppler as well as arterial Doppler. The patient tells me that she has had right hip pain prior to any fall. 07/31/20 16:47 Patient is 80-year-old female with a history of Parkinson's recently patient medication were changed due to fall apparently patient had a fall on June 26 resulting in fracture of right 4th 5th and 6th ribs, patient also right hip and lower extremity pain and swelling patient also has a bruising bluish tint along her right foot on medial aspect, patient's children are factor 5 Leiden deficient to further evaluate patient had arterial and venous Doppler of the right lower extremity which essentially normal. Patient was seen by Neurologist and suggested patient Parkinson medicine appropriate and does not need to be changed recommended patient will benefit acute rehab, will continue to monitor have PT OT evaluate the patient and further recommendation to follow. Yesterday patient was able to participate in physical therapy however today her right lower extremity is painful unable to extent without pain, patient was not able to participate in physical therapy, will apply Lidoderm patches for pain control, awaiting authorization for [facility] or jail facility, patient will benefit from acute rehab, patient denies any abdominal pain nausea or vomiting fever or chills (2) Parkinson's disease: Code(s): G20 - Parkinson's disease Status: Acute Assessment and Plan: I did consult Neurology to evaluate her medications. Will continue with her home medications of carbidopa levodopa. PT and OT evaluation as well. reconciliation coordinator for possible rehab. (3) Depression with anxiety: Code(s): F41.8 - Other specified anxiety disorders Status: Chronic Assessment and Plan: P.r.n. Ativan (4) Overactive bladder: Code(s): N32.81 - Overactive bladder Status: Chronic Assessment and Plan: Continue Oxybutin (5) Benign essential hypertension: Code(s): I10 - Essential (primary) hypertension Status: Chronic Assessment and Plan: Continue with nifedipine. (6) Glaucoma: Code(s): H40.9 - Unspecified glaucoma Status: Chronic Assessment and Plan: Continue with home eye drops. Subjective Date/time seen: 07/31/20 16:47 Patient is 80-year-old female with a history of Parkinson's recently patient medication were changed due to fall apparently patient had a fall on June 26 resulting in fracture of right 4th 5th and 6th ribs, patient also right hip and lower extremity pain and swelling patient also has a bruising bluish tint along her right foot on medial aspect, patient's children are factor 5 Leiden deficient to further evaluate patient had arterial and venous Doppler of the right lower extremity which essentially normal. Patient was seen by Neurologist and suggested patient Parkinson medicine appropriate and does not need to be changed recommended patient will benefit acute rehab, will continue to monitor have PT OT evaluate the patient and further recommendation to follow. Yesterday patient was able to participate in physical therap
[2020-07-31 22:00] VITALS: BP 136/65; PULSE 73; RESP 15; TEMP 36.6; O2SAT 97
[2020-07-31] MEDS: OXYBUTYNIN CHLORIDE 5 MG TABLET PO (22:15)
[2020-08-01 05:38] VITALS: BP 147/66; PULSE 63; RESP 16; TEMP 36.2; O2SAT 100
[2020-08-01 05:59] LABS: Hematocrit 35.5 % (37.0-47.0); Hemoglobin 11.9 g/dL (12.0-15.0); Mean Corpuscular HGB Conc 33.5 g/dl (32-36); Mean Corpuscular Hemoglobin 30.6 pg (26-34); Mean Corpuscular Volume 91.3 fl (80-100); Mean Platelet Volume 10.4 fl (7.4-10.4); Platelet Count Result 264 k/mm3 (150-375); Red Blood Count 3.89 M/mm3 (4.2-5.4); Red Cell Distribution Width 15.2 % (11.5-14.5); White Blood Count 8.3 K/mm3 (4.5-10.0)
[2020-08-01 06:13] LABS: Anion Gap 3 mmol/L (8-16); Blood Urea Nitrogen 23 mg/dL (7-17); Calcium 8.6 mg/dL (8.4-10.2); Carbon Dioxide 34 mmol/L (22-30); Chloride 102 mmol/L (98-107); Estimated CRCL calculation 45 ml/min; Estimated Glomerular Filt Rate > 60; Glucose 97 mg/dL (65-105); Potassium 3.6 mmol/L (3.4-5.0); Sodium 139 mmol/L (137-145)
[2020-08-01] MEDS: oxyCODONE/ACETAMINOPHEN (*CRX) 5-325 MG TABLET 1 TABLET PO ×3 (08:19→22:06)
[2020-08-01] MEDS: CARBIDOPA/LEVODOPA 25/100 MG TABLET 2 TABLET PO ×4 (08:20→21:29)
[2020-08-01] MEDS: BRIMONIDINE TARTRATE 0.2% OP SOLN 5 ML BTL 1 DROP EACH EYE ×2 (08:20→21:29)
[2020-08-01] MEDS: LIDOCAINE 5% PATCH 2 PATCH TRANSDERM (08:20)
[2020-08-01] MEDS: ENOXAPARIN 40 MG/0.4 ML SYRINGE SUB-Q (08:21)
[2020-08-01] MEDS: CHOLECALCIFEROL 1,000 UNITS TABLET 2000 UNITS PO (08:22)
[2020-08-01] MEDS: CITALOPRAM HYDROBROMIDE 20 MG TABLET PO (08:22)
[2020-08-01] MEDS: LORATADINE 5 MG TABLET PO (08:22)
[2020-08-01] MEDS: MULTIVITAMINS THERAPEUTIC TAB (*BKC) 1 TABLET PO (08:23)
[2020-08-01] MEDS: NIFEdipine 30 MG TAB.ER.24 PO (08:23)
[2020-08-01] MEDS: TIMOLOL MALEATE 0.5% OP SOLN 5 ML BOTTLE 1 DROP EACH EYE ×2 (08:23→21:29)
[2020-08-01] MEDS: LATANOPROST 0.005% OP SOLN 2.5 ML BTL 1 DROP EACH EYE (08:23)
[2020-08-01] MEDS: POTASSIUM CHLORIDE 20 MEQ PACKET (FOR LIQUID) 40 MEQ PO (09:13)
[2020-08-01 14:00] VITALS: BP 119/54; PULSE 74; RESP 16; TEMP 36.4; O2SAT 100
--- NOTE | 2020-08-01 15:16 | PM.IMPN ---
Progress Note: A&P Assessment and Plan (1) Hip pain: Code(s): M25.559 - Pain in unspecified hip Status: Acute Assessment and Plan: 08/01/20 15:16 Patient is holding her leg up in complaining of right thigh pain. Her right leg is larger than the left and patient's tells me that she has never had a blood clot in has never been checked for 1. Although her children have the factor 5 laden deficiency. She had 2 x-rays since her last 2 falls and it was found to be negative. She has a purplish black color on the bottom of her foot a took pictures and showed it to her and she did not tell me anything about any black slippers however the nurse told me that she had a new pair black slippers. However the left foot is not discolored but the bottom the right foot is. She has a weak pulse to the right and edema so I will check her for venous Doppler as well as arterial Doppler. The patient tells me that she has had right hip pain prior to any fall. 07/31/20 16:47 Patient is 80-year-old female with a history of Parkinson's recently patient medication were changed due to fall apparently patient had a fall on June 26 resulting in fracture of right 4th 5th and 6th ribs, patient also right hip and lower extremity pain and swelling patient also has a bruising bluish tint along her right foot on medial aspect, patient's children are factor 5 Leiden deficient to further evaluate patient had arterial and venous Doppler of the right lower extremity which essentially normal. Patient was seen by Neurologist and suggested patient Parkinson medicine appropriate and does not need to be changed recommended patient will benefit acute rehab, will continue to monitor have PT OT evaluate the patient and further recommendation to follow. on 07/30 patient was able to participate in physical therapy however on 07/31 her right lower extremity was painful was unable to extent without pain, patient was not able to participate in physical therapy, appllied Lidoderm patches for pain control, Today 08/01 patient is feeling much better Lidoderm patches to helping is able to move her right lower extremity, awaiting authorization for [facility] or detention facility, patient will benefit from acute rehab, patient denies any abdominal pain nausea or vomiting fever or chills (2) Parkinson's disease: Code(s): G20 - Parkinson's disease Status: Acute Assessment and Plan: I did consult Neurology to evaluate her medications. Will continue with her home medications of carbidopa levodopa. PT and OT evaluation as well. community marketing coordinator for possible rehab. (3) Depression with anxiety: Code(s): F41.8 - Other specified anxiety disorders Status: Chronic Assessment and Plan: P.r.n. Ativan (4) Overactive bladder: Code(s): N32.81 - Overactive bladder Status: Chronic Assessment and Plan: Continue Oxybutin (5) Benign essential hypertension: Code(s): I10 - Essential (primary) hypertension Status: Chronic Assessment and Plan: Continue with nifedipine. (6) Glaucoma: Code(s): H40.9 - Unspecified glaucoma Status: Chronic Assessment and Plan: Continue with home eye drops. Subjective Date/time seen: 08/01/20 15:16 Patient is holding her leg up in complaining of right thigh pain. Her right leg is larger than the left and patient's tells me that she has never had a blood clot in has never been checked for 1. Although her children have the factor 5 laden deficiency. She had 2 x-rays since her last 2 falls and it was found to be negative. She has a purplish black color on the bottom of her foot a took pictures and showed it to her and she did not tell me anything about any black slippers however the nurse told me that she had a new pair black slippers. However the left foot is not discolored but the bottom the right foot is. She has a weak pulse to the right and edema so I will check her for
[2020-08-01 21:27] VITALS: BP 127/59; PULSE 78; RESP 16; TEMP 36.5; O2SAT 98
[2020-08-01] MEDS: OXYBUTYNIN CHLORIDE 5 MG TABLET PO (21:29)
[2020-08-02 06:02] VITALS: BP 130/68; PULSE 72; RESP 16; TEMP 36.2; O2SAT 99
[2020-08-02 06:22] LABS: Hematocrit 33.7 % (37.0-47.0); Hemoglobin 11.3 g/dL (12.0-15.0); Mean Corpuscular HGB Conc 33.5 g/dl (32-36); Mean Corpuscular Hemoglobin 30.5 pg (26-34); Mean Corpuscular Volume 90.8 fl (80-100); Mean Platelet Volume 10.7 fl (7.4-10.4); Platelet Count Result 234 k/mm3 (150-375); Red Blood Count 3.71 M/mm3 (4.2-5.4); Red Cell Distribution Width 15.2 % (11.5-14.5); White Blood Count 6.9 K/mm3 (4.5-10.0)
[2020-08-02 06:33] LABS: Anion Gap 2 mmol/L (8-16); Blood Urea Nitrogen 23 mg/dL (7-17); Calcium 8.7 mg/dL (8.4-10.2); Carbon Dioxide 33 mmol/L (22-30); Chloride 102 mmol/L (98-107); Estimated CRCL calculation 45 ml/min; Estimated Glomerular Filt Rate > 60; Glucose 98 mg/dL (65-105); Potassium 3.7 mmol/L (3.4-5.0); Sodium 137 mmol/L (137-145)
[2020-08-02] MEDS: BRIMONIDINE TARTRATE 0.2% OP SOLN 5 ML BTL 1 DROP EACH EYE ×2 (08:54→20:08)
[2020-08-02] MEDS: NIFEdipine 30 MG TAB.ER.24 PO (08:55)
[2020-08-02] MEDS: LORATADINE 5 MG TABLET PO (08:55)
[2020-08-02] MEDS: CARBIDOPA/LEVODOPA 25/100 MG TABLET 2 TABLET PO ×4 (08:55→20:09)
[2020-08-02] MEDS: MULTIVITAMINS THERAPEUTIC TAB (*BKC) 1 TABLET PO (08:55)
[2020-08-02] MEDS: CITALOPRAM HYDROBROMIDE 20 MG TABLET PO (08:55)
[2020-08-02] MEDS: CHOLECALCIFEROL 1,000 UNITS TABLET 2000 UNITS PO (08:55)
[2020-08-02] MEDS: TIMOLOL MALEATE 0.5% OP SOLN 5 ML BOTTLE 1 DROP EACH EYE (08:57)
[2020-08-02] MEDS: ENOXAPARIN 40 MG/0.4 ML SYRINGE SUB-Q (08:57)
[2020-08-02] MEDS: LATANOPROST 0.005% OP SOLN 2.5 ML BTL 1 DROP EACH EYE ×2 (08:57→20:09)
[2020-08-02] MEDS: LIDOCAINE 5% PATCH 2 PATCH TRANSDERM (08:58)
[2020-08-02] MEDS: oxyCODONE/ACETAMINOPHEN (*CRX) 5-325 MG TABLET 1 TABLET PO (09:00)
[2020-08-02 14:00] VITALS: BP 117/55; PULSE 72; RESP 12; TEMP 36.4; O2SAT 100
--- NOTE | 2020-08-02 15:13 | PM.DS ---
DS: Admitting Diagnosis Admitting Diagnosis Admitting Diagnosis: Fall/Parkinsonism/Right Hip Pain DS: Discharge Diagnosis Discharge Diagnosis (1) Hip pain: Code(s): M25.559 - Pain in unspecified hip Status: Acute Assessment and Plan: 08/01/20 15:16 Patient is holding her leg up in complaining of right thigh pain. Her right leg is larger than the left and patient's tells me that she has never had a blood clot in has never been checked for 1. Although her children have the factor 5 laden deficiency. She had 2 x-rays since her last 2 falls and it was found to be negative. She has a purplish black color on the bottom of her foot a took pictures and showed it to her and she did not tell me anything about any black slippers however the nurse told me that she had a new pair black slippers. However the left foot is not discolored but the bottom the right foot is. She has a weak pulse to the right and edema so I will check her for venous Doppler as well as arterial Doppler. The patient tells me that she has had right hip pain prior to any fall. 07/31/20 16:47 Patient is 80-year-old female with a history of Parkinson's recently patient medication were changed due to fall apparently patient had a fall on June 26 resulting in fracture of right 4th 5th and 6th ribs, patient also right hip and lower extremity pain and swelling patient also has a bruising bluish tint along her right foot on medial aspect, patient's children are factor 5 Leiden deficient to further evaluate patient had arterial and venous Doppler of the right lower extremity which essentially normal. Patient was seen by Neurologist and suggested patient Parkinson medicine appropriate and does not need to be changed recommended patient will benefit acute rehab, will continue to monitor have PT OT evaluate the patient and further recommendation to follow. on 07/30 patient was able to participate in physical therapy however on 07/31 her right lower extremity was painful was unable to extent without pain, patient was not able to participate in physical therapy, appllied Lidoderm patches for pain control, Today 08/01 patient is feeling much better Lidoderm patches to helping is able to move her right lower extremity, today patient authorize to be transferred to rehab, patient is clinically stable will discharge the patient today. (2) Parkinson's disease: Code(s): G20 - Parkinson's disease Status: Acute Assessment and Plan: I did consult Neurology to evaluate her medications. Will continue with her home medications of carbidopa levodopa. PT and OT evaluation as well. coordinator of health services for possible rehab. (3) Depression with anxiety: Code(s): F41.8 - Other specified anxiety disorders Status: Chronic Assessment and Plan: P.r.n. Ativan (4) Overactive bladder: Code(s): N32.81 - Overactive bladder Status: Chronic Assessment and Plan: Continue Oxybutin (5) Benign essential hypertension: Code(s): I10 - Essential (primary) hypertension Status: Chronic Assessment and Plan: Continue with nifedipine. (6) Glaucoma: Code(s): H40.9 - Unspecified glaucoma Status: Chronic Assessment and Plan: Continue with home eye drops. DS: Summary Hospital Course Reason for hospitalization: Chief complaint: Fall/Parkinsonism/Right Hip Pain Narrative: Ana Luisa Martinez is a 80 year old female who lives with her and has Parkinson's. The patient recently had her Parkinson's medication increased due to her frequent falls. On 06/28/2020 where she had fallen and had 3 rib fractures at that time. The patient stated that she has not had any pain from that she is complaining of right hip pain. The right leg is swollen and she has a purple 10 collar to her and a weak pulse.the patient had x-ray it was read as a normal hip. Today. She had turned around and went to sit down with that but fell on the
--- NOTE | 2020-08-02 19:10 | PC.NURSE ---
Pt not leaving until the morning. I made a call to lab and the covid swabs will not be back until about 10pm herminio. MD aware. Family and patient aware. Family will be transporting patient.
[2020-08-02 19:31] VITALS: BP 130/67; PULSE 83; RESP 17; TEMP 36.6; O2SAT 98
[2020-08-02] MEDS: OXYBUTYNIN CHLORIDE 5 MG TABLET PO (20:09)
[2020-08-02 21:22] LABS: SARS-CoV-2 RNA PCR Negative
[2020-08-03 04:31] VITALS: BP 132/67; PULSE 73; RESP 16; TEMP 36.2; O2SAT 99
[2020-08-03 05:43] LABS: Hematocrit 33.5 % (37.0-47.0); Hemoglobin 11.4 g/dL (12.0-15.0); Mean Corpuscular Hemoglobin 30.6 pg (26-34); Mean Corpuscular Volume 90.1 fl (80-100); Mean Platelet Volume 10.8 fl (7.4-10.4); Platelet Count Result 237 k/mm3 (150-375); Red Blood Count 3.72 M/mm3 (4.2-5.4); White Blood Count 6.1 K/mm3 (4.5-10.0)
[2020-08-03 05:59] LABS: Anion Gap 4 mmol/L (8-16); Blood Urea Nitrogen 24 mg/dL (7-17); Calcium 8.9 mg/dL (8.4-10.2); Carbon Dioxide 30 mmol/L (22-30); Chloride 103 mmol/L (98-107); Estimated CRCL calculation 45 ml/min; Estimated Glomerular Filt Rate > 60; Glucose 98 mg/dL (65-105); Potassium 3.6 mmol/L (3.4-5.0); Sodium 137 mmol/L (137-145)
[2020-08-03] MEDS: CARBIDOPA/LEVODOPA 25/100 MG TABLET 2 TABLET PO (08:10)
[2020-08-03] MEDS: NIFEdipine 30 MG TAB.ER.24 PO (08:10)
[2020-08-03] MEDS: CHOLECALCIFEROL 1,000 UNITS TABLET 2000 UNITS PO (08:10)
[2020-08-03] MEDS: BRIMONIDINE TARTRATE 0.2% OP SOLN 5 ML BTL 1 DROP EACH EYE (08:10)
[2020-08-03] MEDS: MULTIVITAMINS THERAPEUTIC TAB (*BKC) 1 TABLET PO (08:10)
[2020-08-03] MEDS: LORATADINE 5 MG TABLET PO (08:10)
[2020-08-03] MEDS: CITALOPRAM HYDROBROMIDE 20 MG TABLET PO (08:11)
[2020-08-03] MEDS: ENOXAPARIN 40 MG/0.4 ML SYRINGE SUB-Q (08:11)
[2020-08-03] MEDS: LIDOCAINE 5% PATCH 2 PATCH TRANSDERM (08:11)
== END 2020-08-03 09:45 ==
LOC: ANHED 16:04 → ANH3MED 18:09
PROVIDERS: Family Medicine; Nurse Practitioner; Admitting Provider Internal Medicine; Emergency Provider Emergency Medicine; PCP Internal Medicine; Visit Provider Family Medicine
DX: M25.551 Pain in right hip (principal); M79.89 Other specified soft tissue disorders; W01.0XXA Fall on same level from slipping, tripping and stumbling without subsequent striking against object, initial encounter; I10 Essential (primary) hypertension; G20 Parkinson's disease; F32.1 Major depressive disorder, single episode, moderate; R26.2 Difficulty in walking, not elsewhere classified; Z91.81 History of falling; H40.9 Unspecified glaucoma; N32.81 Overactive bladder; F41.8 Other specified anxiety disorders; Z20.828 Contact with and (suspected) exposure to other viral communicable diseases
CPT/HCPCS: 36415; 71045; 72100; 73502; 74177; 80048; 80053; 81003; 81241; 82728; 83735; 84443; 85025; 85027; 86140; 87635; 93005; 93923; 93970; 96365; 96372; 96374; 96375; 96376; 97110; 97116; 97161; 97165; 97530; 97535; 99285; A9270; C9803; G0378; J0131; J1650; J2270; J2405; Q9967; U0003

== ENCOUNTER 2021-02-15 14:13 | Outpatient (CLI) | payer MEDICARE, SELFPAY ==
--- NOTE | ~2021-02-15 | XR_ITS ---
XR hip LT min 2V DATE: 02/15/2021 14:42 INDICATION: Groin pain radiating down left leg. No known injury. TECHNIQUE: AP, lateral and crosstable lateral views of left hip COMPARISON: None FINDINGS: No fracture or dislocation, avascular necrosis or bone destruction. Left hip joint space ap pears well preserved. The pubic symphysis and sacroiliac joints are intact. Prominent amount of fecal material is noted in the rectum and colon. IMPRESSION: Negative left hip Prominent amount of fecal material in the rectum and colon Reviewed, dictated and finalized at location A.
--- NOTE | ~2021-02-15 | XR_ITS ---
XR femur LT min 2V DATE: 02/15/2021 14:42 INDICATION: Left groin pain radiating down left leg TECHNIQUE: AP and lateral views COMPARISON: None FINDINGS: No fracture or dislocation, periosteal reaction or bone destruction. IMPRESSION: Negative Reviewed, dictated and finalized at location A. IMPRESSION: Negative
== END 2021-02-15 14:14 | disposition home or self-care (01) ==
LOC: ANHIMG 14:23
PROVIDERS: PCP Internal Medicine; Visit Provider Internal Medicine
DX: M25.552 Pain in left hip (principal); M79.662 Pain in left lower leg
CPT/HCPCS: 73502; 73552

== ENCOUNTER 2021-10-31 07:22 | Emergency (ER) | payer MEDICARE, SELFPAY ==
[2021-10-31] VITALS (15 sets, daily range): BP systolic 110–151; BP diastolic 50–77; PULSE 85–92; RESP 16–18; TEMP 36.4–37; O2SAT 94–100
--- NOTE | ~2021-10-31 | CT_ITS ---
EXAMINATION: CT abdomen pelvis w con INDICATION: Obstipation, intermittent lower abdominal pain TECHNIQUE: Computed tomographic images of the abdomen and pelvis were obtained after the administrati on of 100 cc of Omnipaque 350 intravenous contrast. The dose-length product (DLP) was 354.53 mGy-cm. Automated exposure control and iterative reconstruction technique were employed. COMPARISON: 07/30/2020 FINDINGS: Minimal dependent atelectasis is present in the lung bases. The heart size is normal. There is a 4 mm cyst in the right hepatic lobe. The spleen, pancreas, gallbladder, and adrenal glands are normal. The right kidney is unremarkable. There is a 4 cm cyst of the left kidney. No pathologically enlarged abdominal or pelvic lymph nodes are identified. There is no free intraperitoneal gas or evid ence of bowel obstruction. There is a large volume of colonic stool. There is mild lumbar spondylosis . IMPRESSION: 1. Constipation. Reviewed, dictated and finalized at location A. [employer] SUPERVISOR IMPRESSION: 1. Constipation.
--- NOTE | 2021-10-31 07:54 | ED.ABDPAIN ---
HPI - Abdominal Pain General Chief Complaint: Abdominal Pain Stated Complaint: constipate Time Seen by Provider: 10/31/21 07:54 Source: patient and family Mode of arrival: wheelchair Limitations: no limitations History of Present Illness HPI narrative: The patient is a 81 yo female with a history of Parkinson's disease presenting to the ER for evaluation of constipation. Pt reports she has not had a bowel movement for a week. She reports using Miralax and Dulcolax without improvement in her symptoms. Pt reporting abdominal pain this morning. Initially sharp in nature, but has since has completely resolved. She also endorses bloating sensation and mild distension. Pt denies current pain right now at time of assessment. Pt with history of constipation in the past. Denies chest pain, dyspnea, fever. No nausea or vomiting. Pt also reporting she is currently being treated for a UTI with nitrofurantoin. She is passing flatus. Related Data Home Medications Medication Instructions Recorded Confirmed bimatoprost 0.01 % eye drops 1 drop EACH EYE DAILY 11/18/19 10/26/21 cetirizine 10 mg tablet 5 mg PO DAILY 11/18/19 10/26/21 docusate sodium 100 mg capsule 100 mg PO DAILY PRN 11/18/19 10/26/21 multivitamin 1 tablet PO DAILY 11/18/19 10/26/21 carbidopa-levodopa 2 tablet PO QID 06/28/20 10/26/21 brimonidine-timolol [Combigan] 1 drp OPHTHALMIC (EYE) Q12H 07/28/20 10/26/21 cholecalciferol (vitamin D3) 50 mcg PO DAILY 07/28/20 10/26/21 acetaminophen 500 mg tablet 500 mg PO Q6H PRN 02/15/21 10/26/21 polyethylene glycol 3350 17 17 g PO DAILY 03/29/21 10/26/21 gram/dose oral powder trospium 20 mg BID 10/31/21 Allergies Allergy/AdvReac Type Severity Reaction Status Date / Time levofloxacin Allergy Unknown Rash Verified 10/31/21 07:39 prednisone Allergy Unknown Rash Verified 10/31/21 07:39 Sulfa (Sulfonamide Allergy Unknown Swelling Verified 10/31/21 07:39 Antibiotics) of Lip/Tongue/Throat sulfamethizole Allergy Unknown Rash Verified 10/31/21 07:39 sulfamethoxazole Allergy Unknown Rash Verified 10/31/21 07:39 trimethoprim Allergy Unknown Rash Verified 10/31/21 07:39 budesonide Allergy Swelling Verified 10/31/21 07:39 [From Rhinocort Aqua] of Lip/Tongue/Throat ciprofloxacin [From Cipro] Allergy Rash Verified 10/31/21 07:39 strawberry Allergy Rash Verified 10/31/21 07:39 ropinirole AdvReac Diarrhea Verified 10/31/21 07:39 Review of Systems Review of Systems: CONSTITUTIONAL: Denies fever, chills, or sweats. EYES: Denies visual changes, redness, or discharge. ENT: Denies rhinorrhea, congestion, sore throat, or otalgia. CARDIOVASCULAR: Denies chest pain, palpitations, or edema. RESPIRATORY: Denies cough or dyspnea. GASTROINTESTINAL: Denies current abdominal pain, nausea, vomiting, reports constipation GENITOURINARY: Denies dysuria or hematuria. SKIN: Denies rash or itching. MUSCULOSKELETAL: Denies back pain, joint pain, or myalgia. NEUROLOGIC: Denies headache, numbness, or weakness. 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
[2021-10-31 08:52] LABS: Basophils Percent Auto 0.8 % (0.2-1.2); Eosinophils Absolute Auto 0.4 K/mm3 (0-0.3); Eosinophils Percent Auto 7.9 % (0-4.4); Hematocrit 38.2 % (37.0-47.0); Hemoglobin 12.8 g/dL (12.0-15.0); Immature Granulocyte Absolute 0.02 K/mm3 (0.00-0.031); Immature Granulocyte Percent A 0.4 % (0-0.5); Lymphocytes Percent Auto 10.2 % (18.3-44.2); Mean Corpuscular HGB Conc 33.5 g/dl (32-36); Mean Corpuscular Hemoglobin 32.4 pg (26-34); Mean Corpuscular Volume 96.7 fl (80-100); Mean Platelet Volume 10.1 fl (7.4-10.4); Monocytes Absolute Auto 1.1 K/mm3 (0.1-0.6); Neutrophils Absolute Auto 2.9 K/mm3 (1.3-6.7); Neutrophils Percent Auto 58.7 % (45.5-73.1); Platelet Count Result 184 k/mm3 (150-375); Red Blood Count 3.95 M/mm3 (4.2-5.4); Red Cell Distribution Width 13.5 % (11.5-14.5); White Blood Count 4.9 K/mm3 (4.5-10.0)
[2021-10-31 08:56] LABS: Add Urine Microscopic? YES; Amorphous Sediment Urine Few; Appearance Urine Clear (Clear); Bilirubin Urine Negative (Negative); Blood Urine Negative (Negative); Color Urine Yellow (Yellow); Glucose Urine UA Negative (Negative); Ketones Urine Trace mg/dL (Negative); Leukocyte Esterase Ur Negative LEU/UL (Negative); Mucus Urine Rare /lpf; Nitrate Urine Negative (Negative); Protein Urine Negative (Negative); RBC Urine 0-2 /hpf (0-2); Specific Grav Ur 1.015 (1.001-1.035); Squamous Epithelial Cell Urine Occasional /hpf (Few); Urobilinogen Urine Negative mg/dL (<2.0); WBC Urine 0-3 /hpf
[2021-10-31 09:00] LABS: Alanine Aminotransferase 6 U/L (4-35); Albumin Level 4.2 g/dL (3.5-5.1); Alkaline Phosphatase 53 U/L (38-126); Anion Gap 3 mmol/L (8-16); Aspartate Amino Transferase 21 U/L (14-36); Bilirubin,Total 0.6 mg/dL (0.2-1.3); Blood Urea Nitrogen 21 mg/dL (7-17); Calcium 8.9 mg/dL (8.4-10.2); Carbon Dioxide 30 mmol/L (22-30); Chloride 103 mmol/L (98-107); Estimated CRCL calculation 51 ml/min; Estimated Glomerular Filt Rate > 60; Glucose 112 mg/dL (65-110); Lipase 36 U/L (23-300); Potassium 3.2 mmol/L (3.4-5.0); Sodium 136 mmol/L (137-145)
[2021-10-31] MEDS: SODIUM CHLORIDE 0.9% IV 1,000 ML 999 ML IV CONT (09:00)
[2021-10-31] MEDS: MAGNESIUM CITRATE 300 ML BTL PO (10:36)
[2021-10-31] MEDS: PEG (High)/E-LYTE SOLN 4,000 ML BTL 3000 ML PO (11:02)
--- NOTE | 2021-10-31 12:11 | PC.NURSE ---
pt reprted she need to have BM strong assist to bedside commode and back to bed. Pt did not have BM
== END 2021-10-31 13:24 | disposition home or self-care (01) ==
PROVIDERS: Emergency Provider Emergency Medicine; PCP Internal Medicine
DX: K59.00 Constipation, unspecified (principal); R10.9 Unspecified abdominal pain; G20 Parkinson's disease; N39.0 Urinary tract infection, site not specified; I12.9 Hypertensive chronic kidney disease with stage 1 through stage 4 chronic kidney disease, or unspecified chronic kidney disease; N18.30 Chronic kidney disease, stage 3 unspecified; H40.10X0 Unspecified open-angle glaucoma, stage unspecified; M85.80 Other specified disorders of bone density and structure, unspecified site; N32.81 Overactive bladder; R26.89 Other abnormalities of gait and mobility; F41.8 Other specified anxiety disorders; Z85.810 Personal history of malignant neoplasm of tongue; Z87.891 Personal history of nicotine dependence
CPT/HCPCS: 36415; 74177; 80053; 81001; 83690; 85025; 96360; 99284; A9270; J7030; Q9967

== ENCOUNTER 2022-07-20 14:59 | Outpatient (CLI) | payer MEDICARE, SELFPAY ==
--- NOTE | ~2022-07-20 | DEXA_ITS ---
Bone Density Report Name: ALYSSA GARRIDO Age: 82 Sex: Female Ethnicity: White Date of : 1940 Indication: postmenopausal; screening for osteoporosis; hysterectomy; Referring Provider: NATI HOOD Study: Bone densitometry was performed. Exam Date: July 20, 2022 Accession number: [id number] Bone Density: Region BMD T-score Z-score Classification AP Spine(L1-L4) 0.861 -1.7 1.0 Osteopenia Femoral Neck (Left) 0.541 -2.8 -0.5 Osteoporosis Total Hip (Left) 0.613 -2.7 -0.6 Osteoporosis Femoral Neck (Right) 0.533 -2.8 -0.5 Osteoporosis Total Hip (Right) 0.614 -2.7 -0.6 Osteoporosis Total Hip Mean 0.613 -2.7 -0.6 Osteoporosis World Health Organization criteria for BMD impression classify patients as: Normal (T-score at or above -1.0), Osteopenia (T-score between -1.0 and -2.5), or Osteoporosis (T-score at or below -2.5). 10-year Fracture Risk: FRAX not reported because: Some T-score for Spine Total or Hip Total or Femoral Neck at or below -2.5 Clinical Information Provided by Patient: Has the following medical conditions: Hysterectomy Menopause Age: 47 No regular weight bearing exercise Onset of menses at age 18 Number of children 3 Impression: The patient has osteoporosis, based on the Left Femoral Neck T-score. Discussion: INCREASED RISK OF FRACTURE. BONE DENSITY IS UNDESIRABLY LOW AT ONE OR MORE SKELETAL SITES, CONSISTENT WITH POSTMENOPAUSAL OSTEOPOROSIS. This patient's lowest T-score meets the World Health Organization's (WHO) criteria for osteoporosis at one or more sites (T-score -2.5 or below). In untreated patients, the risk of osteoporotic fracture increases approximately two-fold for each 1.0 SD decrease in T-score. Low bone density is not the only risk factor for fracture; also consider factors such as patient's age, frailty or poor health, risk of falling, risk of injury, previous osteoporotic fracture, family history of osteoporosis, cigarette smoking, low body weight, etc. Not everyone with low bone mineral density has osteoporosis; osteomalacia and other metabolic bone disorders should also be considered. Patients who have osteoporosis should be evaluated for specific diseases and conditions (secondary causes) that may cause or contribute to bone loss. The [place] [employer] Endocrinologists (AACE) and National Osteoporosis Foundation (NOF) recommend pharmacologic intervention for all postmenopausal women whose T-score is in this range. The patient should follow a healthful lifestyle (good nutrition with adequate calcium and vitamin D, and appropriate weight-bearing exercise). Follow-Up: Consider a repeat BMD and Vertebral Fracture Assessment (VFA) exam in 2 years or sooner if medically necessary, to reassess this patient's status. Reported by: AMANDA on
== END 2022-07-20 15:00 | disposition home or self-care (01) ==
PROVIDERS: PCP Internal Medicine; Visit Provider Nurse Practitioner
DX: N95.9 Unspecified menopausal and perimenopausal disorder (principal); M85.88 Other specified disorders of bone density and structure, other site; M81.0 Age-related osteoporosis without current pathological fracture
CPT/HCPCS: 77080

== ENCOUNTER 2023-01-19 12:02 | Observation (INO) | payer MEDICARE, SELFPAY ==
--- NOTE | ~2023-01-19 | XR_ITS ---
EXAMINATION: XR hip LT 2V w AP pelvis DATE: 01/19/2023 12:38 INDICATION: Left hip pain. TECHNIQUE: An anteroposterior view of the pelvis and 2 views of left hip were obtained. COMPARISON: Left hip radiographs 02/15/2021 FINDINGS: Bone alignment is normal. No fracture. There is mild osteoarthritis of the hips. There is a large volume of stool in the colon. IMPRESSION: 1. Mild osteoarthritis of the hips. 2. Large volume of stool in the colon. Reviewed, dictated and finalized at location A.
--- NOTE | ~2023-01-19 | CT_ITS ---
EXAMINATION: CT abdomen pelvis w con DATE: 01/19/2023 14:20 INDICATION: hip pain, constipation, abdominal pain TECHNIQUE: Computed tomography (CT) of the abdomen and pelvis was performed with 100 mL Omnipaque-350 intravenous contrast. Automated exposure control and iterative reconstruction technique were employe d. The dose-length product was 633.65 mGy-cm. COMPARISON: None. FINDINGS: Mild motion artifact. Examination performed in the left lateral decubitus position. Lower thorax: Subsegmental lingular consolidation. Basilar scarring. Dependent atelectasis. Liver: 4 mm cyst or hemangioma in the right hepatic lobe. Biliary/Gallbladder: Gallbladder is normal. No bile duct dilation. Pancreas: No mass or duct dilation. Spleen: Normal. Adrenals:No mass. Kidneys: Left upper pole simple cyst. No suspicious mass, stone, or hydronephrosis. GI tract: Mild distal esophageal and antral wall edema No small or large bowel dilation. Normal appen ivone. Large volume of colonic fecal material. Mesentery/Peritoneum: No ascites, mass, or free air. Retroperitoneum: No mass. Pelvis: Decompressed urinary bladder. Surgically absent uterus. Soft Tissues: Soft tissues and body wall unremarkable. Bones: Osteopenia. Motion artifact in the pelvis without definite fracture. Transverse lucency at S4 , with evidence of early healing changes, new since the prior study. IMPRESSION: Subsegmental lingular atelectasis/consolidation. Esophagitis/gastritis. Large volume of colonic stool may reflect constipation in the appropriate clinical context. Likely subacute transverse sacral frac ture at S4. No definite pelvic or hip fracture. Reviewed, dictated and finalized at location K. IMPRESSION: Subsegmental lingular atelectasis/consolidation. Esophagitis/gastritis. Large v olume of colonic stool may reflect constipation in the appropriate clinical con text. Likely subacute transverse sacral fracture at S4. No definite pelvic or h ip fracture.
--- NOTE | ~2023-01-19 | US_ITS ---
EXAMINATION: US venous doppler [facility] DATE: 01/19/2023 23:02 INDICATION: Lower limb pain. TECHNIQUE: Grayscale ultrasound images without and with compression and Doppler ultrasound images of the bilateral lower extremity veins were obtained. COMPARISON: Ultrasound 07/29/2020 FINDINGS: The visualized portions of right common femoral vein, profunda (deep) femoral vein, femoral vein, pop liteal vein, peroneal veins, posterior tibial veins, and greater saphenous vein outflow are patent. The visualized portions of left common femoral vein, profunda femoral vein, femoral vein, popliteal v ein, peroneal veins, posterior tibial veins, and greater saphenous vein outflow are patent. IMPRESSION: 1. No deep venous thrombosis. Reviewed, dictated and finalized at location E.
[2023-01-19 12:00] VITALS: BP 161/83; PULSE 94; RESP 20; TEMP 37.2; O2SAT 96
--- NOTE | 2023-01-19 12:20 | ECG_ITS ---
Measurements Intervals [place] Rate: 94 P: 72 NC: 183 QRS: -15 QRSD: 82 T: 57 QT: 360 QTc: 452 Interpretive Statements SINUS RHYTHM CONSIDER INFERIOR INFARCT, AGE INDETERMINATE BASELINE ARTIFACT- I, II, III, AVR, AVL, AVF, V1-V6 ABNORMAL ECG COMPARED TO ECG 07/28/2020 13:42:34 NO SIGNIFICANT CHANGES Electronically Signed On 01-19-2023 12:48:44 CDT by Farhan Truong D.O.
--- NOTE | 2023-01-19 12:49 | ED.GENADULT ---
HPI - General Adult General Chief complaint: Weakness Stated complaint: weakness, L hip pain Time Seen by Provider: 01/19/23 12:19 History of Present Illness HPI narrative: 82-year-old female with history of Parkinson's disease presenting to the emergency department for complaint of left hip pain. states that the patient has been complaining of left hip pain and was unwilling to sit up today. Patient is ANO x4 but is very hard of hearing. Patient also does have a history of constipation. Related Data Home Medications Medication Instructions Recorded Confirmed docusate sodium 100 mg capsule 100 mg PO DAILY PRN Constipation 11/18/19 01/19/23 (Dulcolax Stool Softener (docusate)) carbidopa 25 mg-levodopa 100 mg 2 tablet PO QID 06/28/20 01/19/23 tablet brimonidine 0.2 %-timolol 0.5 % 1 drp ophthalmic (eye) Q12H 07/28/20 01/19/23 eye drops (Combigan) bimatoprost 0.01 % eye drops 1 drp EACH EYE DAILY 01/19/23 01/19/23 (Lumigan) carbidopa ER 25 mg-levodopa 100 mg 1 tablet PO 2200 01/19/23 01/19/23 tablet,extended release citalopram 20 mg tablet 20 mg PO DAILY 01/19/23 01/19/23 nifedipine 30 mg tablet,extended 30 mg PO DAILY 01/19/23 01/19/23 release trospium 20 mg tablet 40 mg PO BID 01/19/23 01/19/23 Allergies Allergy/AdvReac Type Severity Reaction Status Date / Time levofloxacin Allergy Unknown Rash Verified 01/19/23 12:14 prednisone Allergy Unknown Rash Verified 01/19/23 12:14 Sulfa (Sulfonamide Allergy Unknown Swelling Verified 01/19/23 19:04 Antibiotics) of Lip/Tongue/Throat sulfamethizole Allergy Unknown Rash Verified 01/19/23 19:04 sulfamethoxazole Allergy Unknown Rash Verified 01/19/23 19:04 trimethoprim Allergy Unknown Rash Verified 01/19/23 19:04 budesonide Allergy Swelling Verified 01/19/23 19:04 [From Rhinocort Aqua] of Lip/Tongue/Throat ciprofloxacin [From Cipro] Allergy Rash Verified 01/19/23 19:04 strawberry Allergy Rash Verified 01/19/23 19:04 nitrofurantoin AdvReac Intermediate nausea Verified 01/19/23 12:14 ropinirole AdvReac Diarrhea Verified 01/11/23 12:59 Review of Systems Review of Systems: All systems reviewed & are unremarkable except as noted in HPI and below PMFSH Past Medical History Medical History (Updated 01/19/23 @ 19:21 by Merlene Webber PA-C) Balance disorder Benign essential hypertension Chronic kidney disease, stage 3 Depression with anxiety Gait disturbance Open-angle glaucoma of both eyes Oral cancer (06/2019) Status post resection and chemoradiation. Osteopenia after menopause Overactive bladder Parkinson's disease Surgical History Surgical History (Updated 01/19/23 @ 19:20 by Merlene Webber PA-C) History of ankle surgery Left. History of appendectomy History of hysterectomy History of oral surgery Resection of oral cancer with right neck dissection. History of skin graft Family History Family History Father Depression, Onset Age: 70 Hypertension Suicide Son Factor 5 Leiden mutation, heterozygous Daughter Factor 5 Leiden mutation, heterozygous Mother Cancer Social History Social History Social History: The patient stated that she quit smoking over 50 years ago. She has 3 children. The patient is a retired preschool assistant director no alcohol or illicit drugs. Her is a durable power of energy attorney. She desires to be a full code. Smoking packs per day: 0.5 Smoking cigarettes per day: 10.0 Years smoked: 5 Smoking pack-years: 2.50 Smoking status: Former smoker Tobacco type: cigarettes Second hand tobacco smoke exposure: Yes Smoking end date: 09/17/69 Alcohol intake: never Substance use: never Substance use type: does not use Lack of Transportation: No Lack of Food: Never True Current Housing: I Have Housing Concerned About Future Housing: No Difficulty Paying
[2023-01-19 13:33] LABS: Hematocrit 42.3 % (37.0-47.0); Hemoglobin 14.2 g/dL (12.0-15.0); Mean Corpuscular HGB Conc 33.6 g/dl (32-36); Mean Corpuscular Hemoglobin 31.6 pg (26-34); Platelet Count Result 204 k/mm3 (150-375); Red Cell Distribution Width 13.6 % (11.5-14.5)
[2023-01-19 13:44] LABS: INR 0.9
[2023-01-19 13:45] LABS: Alanine Aminotransferase 12 U/L (6-35); Albumin Level 4.4 g/dL (3.5-5.1); Alkaline Phosphatase 92 U/L (38-126); Anion Gap 9 mmol/L (8-16); Aspartate Amino Transferase 44 U/L (14-36); Bilirubin,Total 0.7 mg/dL (0.2-1.3); Blood Urea Nitrogen 24 mg/dL (7-17); Calcium 9.5 mg/dL (8.4-10.2); Carbon Dioxide 27 mmol/L (22-30); Chloride 100 mmol/L (98-107); Estimated CRCL calculation 48 ml/min; Estimated Glomerular Filt Rate > 60; Glucose 102 mg/dL (65-110); Partial Thromboplastin Time 24.8 SECONDS (22.3-36.8); Potassium 4.1 mmol/L (3.4-5.0); Sodium 136 mmol/L (137-145)
[2023-01-19 13:49] LABS: Appearance Urine Cloudy (Clear); Bacteria Urine 4+ /hpf; Bilirubin Urine Negative (Negative); Blood Urine Negative (Negative); Color Urine Yellow (Yellow); Glucose Urine UA Negative (Negative); Ketones Urine Trace mg/dL (Negative); Leukocyte Esterase Ur 1+ LEU/UL (Negative); Need Manual Microscopic Reviewed; Nitrate Urine Positive (Negative); Non Pathogenic Casts 0-2; Protein Urine Trace mg/dL (Negative); RBC Urine 0-2 /hpf (0-2); Specific Grav Ur 1.017 (1.001-1.035); Squamous Epithelial Cell Urine Occasional /hpf (Few); WBC Urine 0-5 /hpf; pH Urine 6.5 (5.0-9.0)
[2023-01-19 13:52] LABS: Add Urine Microscopic? YES
[2023-01-19 13:52] LABS: Total Cells Counted 100
[2023-01-19 13:53] LABS: Band Neutrophils Percent 1 % (0-6); Burr Cells 2+ (NORMAL); Eosinophils Absolute Manual 0.12 K/mm3 (0.02-0.5); Eosinophils Percent Manual 1 % (0-4); Lymphocytes Absolute Manual 1.08 K/mm3 (1.1-4.5); Lymphocytes Percent Manual 9 % (18-44); Monocytes Absolute Manual 1.08 K/mm3 (0.1-0.90); Monocytes Percent Manual 9 % (3-9); Neutrophils Absolute Manual 9.72 K/mm3 (1.7-7.2); Neutrophils Percent Manual 80 % (46-73); Platelet Estimate Adequate (Adequate); Schistocytes None Seen (NORMAL)
[2023-01-19] MEDS: LORazepam INJ (*CRX) 2 MG/ML VIAL 0.5 MG IV PUSH (15:34)
--- NOTE | 2023-01-19 15:47 | WPDNEUROSGPN ---
Subjective Date/time seen: 01/19/23 15:47 Interval history: Asked to review CT performed on Ana Luisa Martinez in ED that shows subacute frature of S4 Patient with hip pain and baseline PD Fracture appears subacute and is not likely driver supervisor of her pain No indication for neurosurgical intervention. No other gross abnormalities seen on Lumbar CT No need for neurosurgical follow up for this problem Objective Data Vital Signs Vital Signs: Vital Signs - 24 hr 01/19/23 12:00 Temperature 99 F Pulse Rate 94 Respiratory Rate 20 Blood Pressure 161/83 H Pulse Oximetry 96 Oxygen Delivery Room Air Meds/Results Medications: Active Medications Generic Name Dose Route Start Last Admin Trade Name Freq PRN Reason Stop Dose Admin Ceftriaxone Sodium 1 gm in 50 mls @ 100 mls/hr 01/19/23 15:35 Rocephin 1 Gm/Ns 50 Ml IVPB 01/19/23 16:04 ONCE STA Radiology Results: ITS Impressions Hip/Pelvis X-Ray 01/19/23 12:42 IMPRESSION: 1. Mild osteoarthritis of the hips. 2. Large volume of stool in the colon. Abdomen/Pelvis CT 01/19/23 14:22 IMPRESSION: Subsegmental lingular atelectasis/consolidation. Esophagitis/gastritis. Large volume of colonic stool may reflect constipation in the appropriate clinical context. Likely subacute transverse sacral fracture at S4. No definite pelvic or hip fracture. Labs Labs: Laboratory Results - last 24 hr 01/19/23 01/19/23 13:01 13:23 WBC 12.0 H RBC 4.50 Hgb 14.2 Hct 42.3 MCV 94.0 MCH 31.6 MCHC 33.6 RDW 13.6 Plt Count 204 MPV 11.0 H Immature Gran % (Auto) Not Reportable Neut % (Auto) Not Reportable Lymph % (Auto) Not Reportable Treasure % (Auto) Not Reportable Eos % (Auto) Not Reportable Baso % (Auto) Not Reportable Lymph # (Auto) Not Reportable [place] # (Auto) Not Reportable Eos # (Auto) Not Reportable Baso # (Auto) Not Reportable Abs Immat Gran (auto) Not Reportable Absolute Neuts (auto) Not Reportable Absolute Nucleated RBC Not Reportable Total Counted 100 Neutrophils % (Manual) 80 H Band Neutrophils % 1 Lymphocytes % (Manual) 9 L Monocytes % (Manual) 9 Eosinophils % (Manual) 1 Nucleated RBC % Not Reportable Abs Neuts (Manual) 9.72 H Abs Lymphs (Manual) 1.08 L Abs Monocytes (Manual) 1.08 H Absolute Eos (Manual) 0.12 Platelet Estimate Adequate Alida Cells 2+ Schistocytes None seen PT 13.0 INR 0.9 APTT 24.8 Sodium 136 L Potassium 4.1 Chloride 100 Carbon Dioxide 27 Anion Gap 9 BUN 24 H Creatinine 0.70 Estim Creat Clear Calc 48 Estimated GFR > 60 Glucose 102 Calcium 9.5 Total Bilirubin 0.7 AST 44 H ALT 12 Alkaline Phosphatase 92 Total Protein 8.0 Albumin 4.4 Urine Color Yellow Urine Appearance Cloudy H Urine pH 6.5 Ur Specific [place] 1.017 Urine Protein Trace Urine Glucose (UA) Negative Urine Ketones Trace H Ur Blood (Man) Negative Urine Nitrate Positive H Urine Bilirubin Negative Urine Urobilinogen 1.0 Add Ur Microanalysis Reviewed Leukocyte Esterase Rfl 1+ H Urine RBC 0-2 Urine WBC 0-5 Ur Squamous Epith Cells Occasional Urine Bacteria 4+ H Urine Casts 0-2
[2023-01-19 17:17] VITALS: BP 177/93; PULSE 91; RESP 17; O2SAT 98
--- NOTE | 2023-01-19 18:00 | PC.NURSE ---
This patient, Ana Luisa Martinez, was admitted to 3 Med Surg Room 316-01. Patient/family oriented to hospital policies and general routines including ID bracelet, bed and alarms, visiting hours, pain management, procedures, bathroom and other care routines, personal items, smoking policy, room service/diet, and visiting hours. Report from Dian CALL. Information on how to activate the Rapid Response Team has been discussed. Patient/Family are encouraged to report perceived risks to care and to ask questions if they do not understand what they are told or what they should do.
[2023-01-19 18:09] VITALS: BMI 19.0
--- NOTE | 2023-01-19 19:16 | PM.IMHP ---
H&P: HPI History of Present Illness Date/Time: 01/19/23 16:45 Chief Complaint: Left hip pain. Narrative: This is a very pleasant 82-year-old female with Parkinson's disease, hypertension, hearing loss, glaucoma, osteoporosis, and history of oral cancer who presented to the emergency department via EMS from home for evaluation of left hip pain. The patient provides the following history; her Al provides additional information with the patient's permission. She is not very mobile at baseline and spends most of her time in her power chair though can stand and pivot to transfer. Her and son are at home and they are her main caretakers. It is not unusual for her to ask to go to the bathroom once or twice at night time and about 03:00 her helped her go to the restroom and she seemed fine at that time. Several hours thereafter she called out for him, crying in pain and ?she has been moaning since that time.? She reports a severe pain in the left lower back and hip area which she has a difficult time describing. It is worse with minimal movement and in fact she was refusing to even sit up today due to the pain. The pain does not radiate and she has not noticed any significant alleviating factors. She adamantly denies injury and recent falls. In the ED: Hip x-ray showed no evidence of fracture or dislocation. CT of the abdomen and pelvis done for abdominal distension showed evidence of constipation and a nondisplaced S4 fracture. Case was discussed with Neurosurgery who did not feel this was the etiology of her symptoms. Soap status enema was given without significant results unfortunately. Due to ongoing pain and constipation she is being admitted overnight for further treatment and evaluation. Also in the ED she was given a dose of ceftriaxone due to an abnormal urinalysis was nitrate and leukocyte esterase positive with 4+ bacteria. Review of Systems Review of Systems: Twelve systems were reviewed. She denies fever, chills, and sweats. She does have difficulty swallowing from her previous oral surgery at and mainly eats soft foods and dietary supplements. She is hard of hearing. She denies vertigo. She denies recent falls. No recent cold or flu symptoms. No chest pain or shortness of breath. She has had increasing urinary frequency but denies overt dysuria. Except as documented, all other systems were reviewed and are negative. [facility] Past Medical History Medical History (Updated 01/19/23 @ 21:59 by Merlene Webber PA-C) Balance disorder Benign essential hypertension Chronic kidney disease, stage 3 Depression with anxiety Gait disturbance Open-angle glaucoma of both eyes Oral cancer (06/2019) Status post resection and chemoradiation. Osteopenia after menopause Overactive bladder Parkinson's disease Surgical History Surgical History (Updated 01/19/23 @ 19:20 by Merlene Webber PA-C) History of ankle surgery Left. History of appendectomy History of hysterectomy History of oral surgery Resection of oral cancer with right neck dissection. History of skin graft Family History Family History Father Depression, Onset Age: 70 Hypertension Suicide Son Factor 5 Leiden mutation, heterozygous Daughter Factor 5 Leiden mutation, heterozygous Mother Cancer Social History Social History (Updated 01/19/23 @ 21:53 by Merlene Webber PA-C) Social History: Surrogate medical decision maker: Andrea Martinez, spouse. Code status: Full code. Smoking packs per day: 0.5 Smoking cigarettes per day: 10.0 Years smoked: 5 Smoking pack-years: 2.50 Smoking status: Former smoker Tobacco type: cigarettes Second hand tobacco smoke exposure: Yes Smoking end date: 09/17/69 Alcohol intake: never Substance use: never Substance use type: does not use Lack of Transportation: No Lack of Food: Never True Current Housing: I Have H
[2023-01-19 22:00] VITALS: BP 127/61; PULSE 87; RESP 14; TEMP 36.6; O2SAT 95
[2023-01-19] MEDS: TIMOLOL MALEATE 0.5% OP SOLN 5 ML BOTTLE 1 DROP EACH EYE (22:53)
[2023-01-19] MEDS: ACETAMINOPHEN 325 MG TABLET 650 MG PO (22:53)
[2023-01-19] MEDS: BRIMONIDINE TARTRATE 0.2% OP SOLN 5 ML BTL 1 DROP EACH EYE (22:53)
[2023-01-19] MEDS: polyethylene glycoL 3350 17 GM POWD.PACK PO (22:53)
[2023-01-20 05:27] VITALS: BP 116/52; PULSE 64; RESP 18; TEMP 36.4; O2SAT 97
[2023-01-20 06:30] LABS: Hematocrit 40.4 % (37.0-47.0); Hemoglobin 13.5 g/dL (12.0-15.0); Mean Corpuscular HGB Conc 33.4 g/dl (32-36); Mean Corpuscular Hemoglobin 31.3 pg (26-34); Mean Corpuscular Volume 93.5 fl (80-100); Mean Platelet Volume 11.1 fl (7.4-10.4); Platelet Count Result 185 k/mm3 (150-375); Red Blood Count 4.32 M/mm3 (4.2-5.4); Red Cell Distribution Width 13.5 % (11.5-14.5); White Blood Count 7.6 K/mm3 (4.5-10.0)
[2023-01-20 06:46] LABS: Anion Gap 3 mmol/L (8-16); Blood Urea Nitrogen 20 mg/dL (7-17); Calcium 8.9 mg/dL (8.4-10.2); Carbon Dioxide 31 mmol/L (22-30); Chloride 102 mmol/L (98-107); Estimated CRCL calculation 40 ml/min; Estimated Glomerular Filt Rate > 60; Glucose 97 mg/dL (65-110); Magnesium 2.3 mg/dL (1.6-2.3); Potassium 3.5 mmol/L (3.4-5.0); Sodium 136 mmol/L (137-145)
[2023-01-20] MEDS: BRIMONIDINE TARTRATE 0.2% OP SOLN 5 ML BTL 1 DROP EACH EYE ×2 (08:06→21:01)
[2023-01-20] MEDS: ACETAMINOPHEN 325 MG TABLET 650 MG PO ×2 (08:06→14:56)
[2023-01-20] MEDS: CITALOPRAM HYDROBROMIDE 20 MG TABLET PO (08:07)
[2023-01-20] MEDS: CARBIDOPA/LEVODOPA 25/100 MG TABLET 2 TABLET PO ×4 (08:07→21:00)
[2023-01-20] MEDS: LATANOPROST 0.005% OP SOLN 2.5 ML BTL 1 DROP EACH EYE (08:07)
[2023-01-20] MEDS: ENOXAPARIN 40 MG/0.4 ML SYRINGE SUB-Q (08:07)
[2023-01-20] MEDS: TIMOLOL MALEATE 0.5% OP SOLN 5 ML BOTTLE 1 DROP EACH EYE ×2 (08:08→21:01)
[2023-01-20] MEDS: NIFEdipine 30 MG TAB.ER.24 PO (08:08)
[2023-01-20] MEDS: polyethylene glycoL 3350 17 GM POWD.PACK PO (13:49)
[2023-01-20 14:00] VITALS: BP 114/81; PULSE 74; RESP 14; TEMP 36.3; O2SAT 98
[2023-01-20] MEDS: BISACODYL 10 MG SUPPOSITORY RECTAL (14:44)
--- NOTE | 2023-01-20 16:35 | PM.IMPN ---
Progress Note: A&P Assessment and Plan (1) Closed sacral fracture: Qualifiers: Encounter type: initial encounter Fracture alignment: nondisplaced Code(s): S32.10XA - Unspecified fracture of sacrum, initial encounter for closed fracture Status: Acute Assessment and Plan: CT of the abdomen/pelvis shows a likely subacute transverse sacral fracture at S4. Neurosurgery was consulted and they do not feel this is the etiology of her symptoms and they have no further recommendations. Continue supportive care with analgesics as needed. PT/OT consulted. (2) Constipation: Qualifiers: Constipation type: unspecified constipation type Qualified Code(s): K59.00 - Constipation, unspecified Code(s): K59.00 - Constipation, unspecified Status: Acute Assessment and Plan: She has had an longstanding problem with constipation. Soapsuds enema in the ED was unsuccessful. Start MiraLax b.i.d. Bisacodyl suppository x1. Give fleet enema x1 if no response with suppository. (3) Abnormal urinalysis: Code(s): R82.90 - Unspecified abnormal findings in urine Status: Acute Assessment and Plan: UA +nitrates, 1+ leukocytes, 4+ bacteria. No evidence of pyelonephritis on imaging. Continue ceftriaxone, pending urine culture as she has had an increase in urinary frequency recently. (4) Left hip pain: Code(s): M25.552 - Pain in left hip Status: Acute Assessment and Plan: No etiology for her symptoms on imaging. lower extremity venous Doppler ultrasounds negative for DVT. She does not seem to be having any pain at this time. Continue acetaminophen PRN for pain. PT/OT consulted. (5) Parkinson's disease: Code(s): G20 - Parkinson's disease Status: Chronic Assessment and Plan: Continue carbidopa-levodopa. Clarified patient home doses with family. Plan CODE STATUS: FULL CODE Discharge disposition: patient is from home with spouse and son as caregivers. Time Spent With Patient Time: 30 minutes time spent with patient assessment, patient education, review of labs, vitals and nursing documentation. All questions answered to the best of my ability. Subjective Date/time seen: 01/20/23 16:35 Interval history: Patient is an 82-year-old female with Parkinson disease, hypertension, hearing loss, glaucoma, osteoporosis, and history of oral cancer who is seen in follow up for left hip pain.?Patient found lying in bed sleeping. Her spouse is at bedside and reports she worked with physical therapy and has been sleeping since that time. He has not noticed any moaning or complaints. No BM at this time. Nursing reports the patient has been fatigued today, but arousable. No opioid medications given this admission. Review of Systems Review of Systems: All systems reviewed & are unremarkable except as noted in HPI and below Exam Narrative: General: Chronically ill older adult female, nontoxic-appearing lying in bed. HEENT: PERRL, EOMI. Sclera anicteric. Mucous membranes pink and dry. Changes of the tongue from prior surgery. Neck: Changes of prior surgery and radiation on the right side of the neck. Respiratory: Respirations are nonlabored and she is speaking full sentences. Lungs are clear to auscultation. Cardiovascular: Regular rate and rhythm with S1-S2. No murmurs. Gastrointestinal: Abdomen is distended with hyperactive bowel sounds. She is mildly tender to palpation throughout the periumbilical region. Soft. No guarding or rebound tenderness. Skin: Warm and dry. Generalized pallor. Scattered ecchymosis on the upper extremities and left elbow. Extremities: No cyanosis, clubbing, or edema. Radial and pedal pulses intact. No trauma lumbar spine region or left hip region. Neurological: Sleeping. Opens eyes to voice. Unable to assess orientation. Not answering questions at this time. She is hard of hearing. Psychiatri
[2023-01-20] MEDS: SENNA/DOCUSATE SODIUM TABLET 1 TAB PO (17:51)
--- NOTE | 2023-01-20 18:01 | PHAR ---
PT'S HOME MED TROSPIUM 20 MG TAB VERIFIED BY PHARMACY
[2023-01-20] MEDS: CARBIDOPA/LEVODOPA 25/100 MG CR TABLET 1 TABLET PO (21:01)
[2023-01-20 21:08] VITALS: BP 107/78; PULSE 79; RESP 16; TEMP 36.6; O2SAT 94
[2023-01-21 06:00] VITALS: BP 127/66; PULSE 74; RESP 16; TEMP 36.5; O2SAT 97
[2023-01-21] MEDS: CARBIDOPA/LEVODOPA 25/100 MG TABLET 2 TABLET PO ×2 (08:07→12:06)
[2023-01-21] MEDS: NIFEdipine 30 MG TAB.ER.24 PO (08:07)
[2023-01-21] MEDS: ENOXAPARIN 40 MG/0.4 ML SYRINGE SUB-Q (08:07)
[2023-01-21] MEDS: CITALOPRAM HYDROBROMIDE 20 MG TABLET PO (08:07)
[2023-01-21] MEDS: polyethylene glycoL 3350 17 GM POWD.PACK PO (08:08)
[2023-01-21] MEDS: SENNA/DOCUSATE SODIUM TABLET 1 TAB PO (08:08)
[2023-01-21] MEDS: TIMOLOL MALEATE 0.5% OP SOLN 5 ML BOTTLE 1 DROP EACH EYE (08:08)
[2023-01-21] MEDS: ACETAMINOPHEN 325 MG TABLET 650 MG PO (08:08)
[2023-01-21] MEDS: LATANOPROST 0.005% OP SOLN 2.5 ML BTL 1 DROP EACH EYE (08:08)
[2023-01-21] MEDS: BRIMONIDINE TARTRATE 0.2% OP SOLN 5 ML BTL 1 DROP EACH EYE (08:08)
--- NOTE | 2023-01-21 13:12 | PM.DS ---
DS: Admitting Diagnosis Discharge Date 01/21/2023 Admitting Diagnosis Unspecified fracture of sacrum, initial encounter for closed fracture Constipation, unspecified Abnormal urinalysis Pain in left hip Parkinson's disease DS: Discharge Diagnosis Discharge Diagnosis (1) Closed sacral fracture: Qualifiers: Encounter type: initial encounter Fracture alignment: nondisplaced Code(s): S32.10XA - Unspecified fracture of sacrum, initial encounter for closed fracture Status: Acute Assessment and Plan: CT of the abdomen/pelvis shows a likely subacute transverse sacral fracture at S4. Neurosurgery was consulted and they do not feel this is the etiology of her symptoms and they have no further recommendations. Continue supportive care with analgesics as needed. PT/OT consulted. (2) Constipation: Qualifiers: Constipation type: unspecified constipation type Qualified Code(s): K59.00 - Constipation, unspecified Code(s): K59.00 - Constipation, unspecified Status: Acute Assessment and Plan: She has had an longstanding problem with constipation. Soapsuds enema in the ED was unsuccessful. Started MiraLax b.i.d. Bisacodyl suppository x1. Patient had BM 01/20/23 (3) Acute UTI: Code(s): N39.0 - Urinary tract infection, site not specified Status: Acute Assessment and Plan: UA +nitrates, 1+ leukocytes, 4+ bacteria. Pt c/o urinary frequency No evidence of pyelonephritis on imaging.? Treated with IV ceftriaxone 1 gram Q24 hours,? urine culture showed e.coli >100,000 CFU sensitive to Rocephin 01/21/23 transitioned to oral cefdinir 300 mg PO BID x 5 more days to complete 7-day course.? (4) Left hip pain: Code(s): M25.552 - Pain in left hip Status: Acute Assessment and Plan: No etiology for her symptoms on imaging. lower extremity venous Doppler ultrasounds negative for DVT. Conservaative management with acetaminophen PRN for pain. PT/OT consulted. Home health arranged at discharge. (5) Parkinson's disease: Code(s): G20 - Parkinson's disease Status: Chronic Assessment and Plan: Continue carbidopa-levodopa. Clarified patient home doses with family. DS: Summary Hospital Course Reason for hospitalization: Left hip pain Hospital Course: Patient is an 82-year-old female with Parkinson's disease, hypertension, hearing loss, glaucoma, osteoporosis, and history of oral cancer who presented to the emergency department via EMS from home for evaluation of left hip pain. The patient is not very mobile at baseline and spends most of her time in her power chair though can stand and pivot to transfer. Her and son are at home and they are her main caretakers. It is not unusual for her to ask to go to the bathroom once or twice at night time and about 03:00 her helped her go to the restroom and she seemed fine at that time. Several hours thereafter she called out for him, crying in pain and ?she has been moaning since that time.? She reported severe pain in the left lower back and hip area which she has a difficult time describing. It is worse with minimal movement and in fact she was refusing to even sit up on the day of admission due to the pain. The pain does not radiate and she has not noticed any significant alleviating factors. She adamantly denies injury and recent falls. In the ED, hip x-ray showed no evidence of fracture or dislocation. CT of the abdomen and pelvis done for abdominal distension showed evidence of constipation and a nondisplaced S4 fracture. Case was discussed with Neurosurgery who did not feel this was the etiology of her symptoms. Soap suds enema was given without significant results in the ED. Due to ongoing pain and constipation, she was admitted overnight for further treatment and evaluation. Also in the ED she was given a dose of ceftriaxone due to an abnormal urinalysis was nitr
== END 2023-01-21 14:40 | disposition home health service (06) ==
LOC: ANHED 13:26 → ANH3MEDSUR 17:48
PROVIDERS: Physician Assistant; Admitting Provider Student in an Organized Health Care Education/Training Program; Emergency Provider Emergency Medicine; PCP Family Medicine; Visit Provider Student in an Organized Health Care Education/Training Program
DX: S32.10XA Unspecified fracture of sacrum, initial encounter for closed fracture (principal); K59.00 Constipation, unspecified; R82.90 Unspecified abnormal findings in urine; M25.552 Pain in left hip; G20 Parkinson's disease; I12.9 Hypertensive chronic kidney disease with stage 1 through stage 4 chronic kidney disease, or unspecified chronic kidney disease; N18.30 Chronic kidney disease, stage 3 unspecified; F41.8 Other specified anxiety disorders; H91.92 Unspecified hearing loss, left ear; R26.89 Other abnormalities of gait and mobility; H40.9 Unspecified glaucoma; M79.669 Pain in unspecified lower leg; M16.0 Bilateral primary osteoarthritis of hip; R94.31 Abnormal electrocardiogram [ECG] [EKG]; R60.9 Edema, unspecified; M81.0 Age-related osteoporosis without current pathological fracture; N32.81 Overactive bladder; Z85.819 Personal history of malignant neoplasm of unspecified site of lip, oral cavity, and pharynx; Z79.899 Other long term (current) drug therapy; Z87.891 Personal history of nicotine dependence; Z82.49 Family history of ischemic heart disease and other diseases of the circulatory system
CPT/HCPCS: 36415; 73502; 74177; 80048; 80053; 81001; 83735; 85025; 85027; 85610; 85730; 87077; 87086; 87186; 93005; 93970; 96365; 96372; 96375; 97161; 97165; 99285; A9270; G0378; J0696; J1650; J2060; Q9967

== ENCOUNTER 2023-06-14 05:01 | Inpatient (IN) | payer MEDICARE, SELFPAY ==
[2023-06-14] VITALS (22 sets, daily range): BP systolic 124–170; BP diastolic 59–123; PULSE 96–112; RESP 12–23; TEMP 36.2–36.9; O2SAT 84–99; BMI 15.1
--- NOTE | ~2023-06-14 | XR_ITS ---
EXAMINATION: XR chest 1V portable INDICATION: Shortness of breath TECHNIQUE: Portable AP chest at 0541 hours COMPARISON: 06/16/2023 FINDINGS: A right chest drain is again seen projecting in the upper lung zone. No definite pneumothor ax is identified. There is small right pleural effusion. Right basilar airspace opacities persist wit h slight improvement. The cardiomediastinal silhouette is normal. IMPRESSION: 1. Small right pleural effusion. 2. Improving right basilar airspace opacity, likely atelectasis. Reviewed, dictated and finalized at location F.
--- NOTE | ~2023-06-14 | XR_ITS ---
[id number] 06/15/2023 11:56 Indication: Rib fracture without pneumothorax Procedure: 4 views of the RIBS including PA chest Comparison: CT dated 06/14/2023 and chest x-ray dated 06/14/2023 Findings: There is a possible right third rib fracture. There is chronic fractures of the right fourt h, fifth and sixth ribs. There is a right pneumothorax. There is underlying compressive atelectasis o f the right lung. Heart size normal. Left lung clear. Impression: 1: Possible nondisplaced right third rib fracture. 2: Moderate right pneumothorax with underlying compressive atelectasis. 2: Chronic right fourth, fifth and sixth rib fractures. Reviewed, dictated and finalized at location B. Impression: 1: Possible nondisplaced right third rib fracture. 2: Moderate right pneumothorax with underlying compressive atelectasis. 2: Chronic right fourth, fifth and sixth rib fractures.
--- NOTE | ~2023-06-14 | CT_ITS ---
Clinical Indication: Shortness of breath, pain CT Scan of the Chest, Abdomen, and Pelvis with Contrast: Technique: Contiguous sections were acquired throughout the chest, abdomen, and pelvis after intraven ous administration of 90 cc of Omnipaque 350. Dose reduction technique was used on this scan by util izing automated exposure control and iterative reconstruction technique. The dose-length product (DLP ) was 379.77 mGy-cm. COMPARISON: 01/19/2023 Findings: There is no evidence of any significant mediastinal, hilar or axillary lymphadenopathy. The mediastin al soft tissues appear normal. No definite pulmonary embolus. No aortic aneurysm or dissection. There is no evidence of pleural or pericardial effusion. [id number] right pneumothorax is present. There is probable right basilar atelectatic change v ersus possibly other focal parenchymal disease. There is a subtle 4 mm groundglass nodule in the left upper lobe (axial image 44). There is an acute fracture at the anterior right ninth rib. There is acute fracture the anterior righ t eighth rib. There is probable acute fracture at the anterior right sixth and seventh ribs. The liver, spleen, pancreas, gallbladder, adrenals and kidneys are within normal limits. No evidence of aortic aneurysm. No lymphadenopathy. There is a very large amount of stool large bowel. No definite bowel obstruction. There is mild diffu se mesenteric edema without definite lianet ascites. Urinary bladder is unremarkable. No pelvic mass evident. Impression: Small to moderate pneumothorax with probable mild right basilar atelectatic change. Probable acute fractures of the anterior right sixth, seventh, eighth, and ninth ribs. Very large stool burden suggests constipation. No definite bowel obstruction. 4 mm left upper lobe groundglass pulmonary nodule. According to Fleischner Society criteria, no furth er follow-up required for a low-risk patient. For a high-risk patient, consider 12 month follow-up CT . Case discussed with Dr. Carlton at the time of this reading. Reviewed, dictated and finalized at location . Impression: Small to moderate pneumothorax with probable mild right basilar atelectatic ana nge. Probable acute fractures of the anterior right sixth, seventh, eighth, and nint h ribs. Very large stool burden suggests constipation. No definite bowel obstruction. 4 mm left upper lobe groundglass pulmonary nodule. According to Fleischner Soci ety criteria, no further follow-up required for a low-risk patient. For a high- risk patient, consider 12 month follow-up CT. Case discussed with Dr. Carlton at the time of this reading.
--- NOTE | ~2023-06-14 | CT_ITS ---
EXAMINATION: CT chest tube placement w img DATE: 06/15/2023 13:16 INDICATION: Persistent right pneumothorax TECHNIQUE: The procedure including the risks and benefits was discussed with the patient's family pro vided informed consent. The patient was placed supine. The skin overlying the anterior right upper c hest was prepped and draped in sterile fashion. Anesthetic was administered with 1% lidocaine subcut aneously. Conscious sedation was provided by the department of anesthesia. A 18 gauge core needle was advanced into the pneumothorax under CT guidance. The trocar was removed and a [employer] wire advanced into the cephalad aspect of the pneumothorax with position confirmed by CT. Utilizing [employer] nique the needle was removed over the wire and the tract dilated over the wire utilizing 6 Malay and 8 Malay dilators. An 8.5 Malay pigtail catheter was then advanced over the wire. The loop was form ed and locked with position confirmed by CT . The wire was removed and the pneumothorax was aspirated . The chest tube is in attached to the pleural suction drainage device. The catheter was stitched to the skin and sterile Vaseline impregnated gauze and a sterile dressing were applied. There were no im mediate complications. The dose-length product was 198.53 mGy-cm. FINDINGS: CT images demonstrate placement of a right chest tube extending between the anterior interc ostal space between the second and third ribs and with loop formed at the anteromedial aspect of the apical segment of the right upper lobe. There is a residual small hydropneumothorax in the right lowe r lung zone. Consolidation in the right lower lobe most likely atelectasis. There are however tree-in -bud opacities in the central aerated portion of the basilar right lower lobe as well as in the poste rior segment of the right upper lobe consistent with endobronchial spread of disease. This appears to improve slightly since the CT from one day prior. IMPRESSION: 1. Successful CT-guided right chest tube placement with decrease in size of a now small right hydropn eumothorax. 2. Interval decrease in the tree-in-bud opacities in the right upper and lower lobes consistent with improving pneumonia. Reviewed, dictated and finalized at location A. IMPRESSION: 1. Successful CT-guided right chest tube placement with decrease in size of a n ow small right hydropneumothorax. 2. Interval decrease in the tree-in-bud opacities in the right upper and lower lobes consistent with improving pneumonia.
--- NOTE | ~2023-06-14 | XR_ITS ---
EXAMINATION: XR chest 1V portable INDICATION: Right pneumothorax TECHNIQUE: Portable AP chest at 0507 hours COMPARISON: 06/14/2023 FINDINGS: A chest drain projects over the right upper thorax. No pneumothorax is identified. There is a small right pleural effusion. There are minimal airspace opacities of the right lung base. The car diomediastinal silhouette is normal. IMPRESSION: 1. Chest drain projecting over the right upper thorax. No pneumothorax identified. 2. Small right pleural effusion with right basilar airspace opacity, likely atelectasis. Reviewed, dictated and finalized at location F. IMPRESSION: 1. Chest drain projecting over the right upper thorax. No pneumothorax identifi ed. 2. Small right pleural effusion with right basilar airspace opacity, likely ate lectasis.
--- NOTE | ~2023-06-14 | XR_ITS ---
EXAMINATION: XR chest 1V portable DATE: 06/18/2023 06:16 INDICATION: Right pneumothorax. TECHNIQUE: A single frontal view of the chest was obtained. COMPARISON: Chest single view 06/17/2023 FINDINGS: There is mild scarring at the lung apices. There is a small right pneumothorax. There is mi ld atelectasis in right lung. No pleural effusion. The heart size is normal. There are old healed rig ht rib fractures. IMPRESSION: 1. Stable small right pneumothorax. Reviewed, dictated and finalized at location E.
--- NOTE | ~2023-06-14 | XR_ITS ---
EXAMINATION: XR chest 1V portable Exam Date/Time: 06/17/2023 14:00 CDT HISTORY: follow up removal of right chest tube Comparison: 06/17/2023, 06/16/2023; CT chest tube placement 06/15/2023; CTPA abdomen pelvis 06/06/2023. RESULT: Lines, tubes, and devices: None. Lungs and pleura: Rightward rotation. Small peripheral right pneumothorax. Trace right pleural fluid . Senescent changes. Minimal right basilar atelectasis Cardiomediastinal silhouette: Stable. Other: No acute upper abdominal finding. Redemonstration of multiple acute and chronic rib fractures on the right. IMPRESSION: Small right pneumothorax, may be more evident in this examination due to rightward rotation. Trace ri ght pleural fluid. Recommend continued radiographic follow-up. Reviewed, dictated and finalized at [facility]. IMPRESSION: Small right pneumothorax, may be more evident in this examination due to rightw aysha rotation. Trace right pleural fluid. Recommend continued radiographic follo w-up.
--- NOTE | ~2023-06-14 | XR_ITS ---
Portable chest x-ray Comparison: 07/28/2020 Clinical History: Weakness Findings: There is patchy hazy airspace disease throughout the right lung. Suggestion of mild right- sided volume loss. Left lung appears clear. Cardiomediastinal silhouette is stable. Chronic right ri b fracture deformities are noted. Impression: Patchy right lung airspace disease with possible mild right-sided volume loss. Correlate for pneumoni a versus possibly atelectatic change. Reviewed, dictated and finalized at location . Impression: Patchy right lung airspace disease with possible mild right-sided volume loss. Correlate for pneumonia versus possibly atelectatic change.
--- NOTE | 2023-06-14 05:21 | PC.NURSE ---
Patient is able to answer questions appropriately and presents A&Ox4. Patient states that she has not had a bowel movement in awhile and states it has been over a week since last bowel movement.
--- NOTE | 2023-06-14 05:22 | ECG_ITS ---
Measurements Intervals [place] Rate: 109 P: 80 ME: 139 QRS: -58 QRSD: 90 T: 83 QT: 342 QTc: 461 Interpretive Statements SINUS TACHYCARDIA POSSIBLE RIGHT ATRIAL ENLARGEMENT LEFT ANTERIOR FASCICULAR BLOCK BORDERLINE ST-T WAVE ABNORMALITY- HIGH LATERAL LEADS BASELINE ARTIFACT- I, II, III, AVR, AVL, AVF, V1 ABNORMAL ECG COMPARED TO ECG 01/19/2023 12:42:23 SINUS TACHYCARDIA NOW PRESENT LEFT ANTERIOR FASCICULAR BLOCK NOW PRESENT Electronically Signed On 06-14-2023 6:28:14 CDT by Farhan Truong D.O.
[2023-06-14 05:23] LABS: Hematocrit 48.7 % (37.0-47.0); Hemoglobin 16.7 g/dL (12.0-15.0); Mean Corpuscular HGB Conc 34.3 g/dl (32-36); Mean Corpuscular Hemoglobin 31.2 pg (26-34); Mean Platelet Volume 9.7 fl (7.4-10.4); Platelet Count Result 286 k/mm3 (150-375); Red Blood Count 5.35 M/mm3 (4.2-5.4); Red Cell Distribution Width 13.3 % (11.5-14.5); White Blood Count 11.3 K/mm3 (4.5-10.0)
--- NOTE | 2023-06-14 05:26 | PC.NURSE ---
Per EDP Dr. Carlton the patient can have a straight catheter to obtain a urine specimen.
[2023-06-14] MEDS: MORPHINE SULFATE (*CRX) 2 MG/ML INJ IV PUSH (05:31)
[2023-06-14 05:33] LABS: Alanine Aminotransferase 13 U/L (6-35); Alkaline Phosphatase 101 U/L (38-126); Anion Gap 8 mmol/L (8-16); Aspartate Amino Transferase 31 U/L (14-36); Bilirubin,Total 0.9 mg/dL (0.2-1.3); Blood Urea Nitrogen 18 mg/dL (7-17); Calcium 9.3 mg/dL (8.4-10.2); Carbon Dioxide 31 mmol/L (22-30); Chloride 91 mmol/L (98-107); Estimated CRCL calculation 34 ml/min; Estimated Glomerular Filt Rate > 60; Glucose 125 mg/dL (65-110); Potassium 3.5 mmol/L (3.4-5.0); Sodium 130 mmol/L (137-145)
[2023-06-14 05:59] LABS: Anisocytosis 1+ (NORMAL); Band Neutrophils Percent 12 % (0-6); Lymphocytes Absolute Manual 0.45 K/mm3 (1.1-4.5); Macrocytosis 1+ (NORMAL); Monocytes Absolute Manual 0.67 K/mm3 (0.1-0.90); Monocytes Percent Manual 6 % (3-9); Neutrophils Absolute Manual 10.17 K/mm3 (1.7-7.2); Neutrophils Percent Manual 78 % (46-73); Platelet Estimate Adequate (Adequate); Schistocytes None Seen (NORMAL); Total Cells Counted 100
--- NOTE | 2023-06-14 06:43 | ED.GENADULT ---
HPI - General Adult General Chief complaint: Weakness Stated complaint: weakness Time Seen by Provider: 06/14/23 05:12 History of Present Illness HPI narrative: Patient is a 83-year-old female who presents the emergency department with chief complaint of generalized weakness constipation and pain in the back and chest. The patient reports that the pain is worse with movement and improved with rest and the patient does report that she had a fall about a week ago out of a chair where she landed on her right side. Related Data Home Medications Medication Instructions Recorded Confirmed carbidopa 25 mg-levodopa 100 mg 2 tablet PO QID 06/28/20 06/07/23 tablet brimonidine 0.2 %-timolol 0.5 % 1 drp ophthalmic (eye) Q12H 07/28/20 06/07/23 eye drops (Combigan) bimatoprost 0.01 % eye drops 1 drp EACH EYE DAILY 01/19/23 06/07/23 (Lumigan) citalopram 20 mg tablet 20 mg PO DAILY 01/19/23 06/07/23 trospium 20 mg tablet 40 mg PO BID 01/19/23 06/07/23 Allergies Allergy/AdvReac Type Severity Reaction Status Date / Time levofloxacin Allergy Unknown Rash Verified 06/07/23 13:40 prednisone Allergy Unknown Rash Verified 06/07/23 13:40 Sulfa (Sulfonamide Allergy Unknown Swelling Verified 06/07/23 13:40 Antibiotics) of Lip/Tongue/Throat sulfamethizole Allergy Unknown Rash Verified 06/07/23 13:40 sulfamethoxazole Allergy Unknown Rash Verified 06/07/23 13:40 trimethoprim Allergy Unknown Rash Verified 06/07/23 13:40 budesonide Allergy Swelling Verified 06/07/23 13:40 [From Rhinocort Aqua] of Lip/Tongue/Throat ciprofloxacin [From Cipro] Allergy Rash Verified 06/07/23 13:40 strawberry Allergy Rash Verified 06/07/23 13:40 nitrofurantoin AdvReac Intermediate nausea Verified 06/07/23 13:40 ropinirole AdvReac Diarrhea Verified 06/07/23 13:40 Review of Systems Review of Systems: A 10 system review of systems was completed on the patient and is negative except for what is stated in the HPI. Nursing and ancillary documentation was reviewed. [facility] Past Medical History Medical History Balance disorder Benign essential hypertension Chronic kidney disease, stage 3 Depression with anxiety Gait disturbance Open-angle glaucoma of both eyes Oral cancer (06/2019) Status post resection and chemoradiation. Osteopenia after menopause Overactive bladder Parkinson's disease Surgical History Surgical History History of ankle surgery Left. History of appendectomy History of hysterectomy History of oral surgery Resection of oral cancer with right neck dissection. History of skin graft Family History Family History Father Depression, Onset Age: 70 Hypertension Suicide Son Factor 5 Leiden mutation, heterozygous Daughter Factor 5 Leiden mutation, heterozygous Mother Cancer Social History Social History Social History: Surrogate medical decision maker: Andrea Martinez, spouse. Code status: Full code. Smoking packs per day: 0.5 Smoking cigarettes per day: 10.0 Years smoked: 5 Smoking pack-years: 2.50 Smoking status: Former smoker Tobacco type: cigarettes Second hand tobacco smoke exposure: Yes Smoking end date: 09/17/69 Alcohol intake: never Substance use: never Substance use type: does not use Lack of Transportation: No Lack of Food: Never True Current Housing: I Have Housing Concerned About Future Housing: No Difficulty Paying Gas/Electric Bills: No Difficulty Paying for Meds: No Currently Unemployed: No Education: Bachelor's Degree Difficulty w/ Childcare or Family Care: No Additional living arrangements comments: Lives with spouse in [place]. 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 Spi
[2023-06-14 07:07] LABS: Appearance Urine Turbid (Clear); Bacteria Urine 4+ /hpf; Bilirubin Urine Negative (Negative); Blood Urine Negative (Negative); Color Urine Yellow (Yellow); Glucose Urine UA Negative (Negative); Ketones Urine 1+ mg/dL (Negative); Leukocyte Esterase Ur Trace LEU/UL (Negative); Need Manual Microscopic Need Manual; Nitrate Urine Positive (Negative); Protein Urine 1+ mg/dL (Negative); RBC Urine 0-2 /hpf (0-2); Specific Grav Ur 1.027 (1.001-1.035); Squamous Epithelial Cell Urine Few /hpf (Few); WBC Urine 21-50 /hpf; pH Urine 6.5 (5.0-9.0)
[2023-06-14 07:12] LABS: Calcium Oxalate Crystals Urine Present /hpf; Non Pathogenic Casts Not Present
[2023-06-14 07:14] LABS: Lactic Acid Reflex 2.3 mmol/L (0.7-2.0); Lipase 14 U/L (23-300); Magnesium 2.2 mg/dL (1.6-2.3)
[2023-06-14 07:15] LABS: Add Urine Microscopic? YES
[2023-06-14 07:20] LABS: INR 1.1; Prothrombin Time 14.7 Seconds (11.1-14.7)
[2023-06-14 07:26] LABS: NT Pro B Type Natriuretic Pept 606 pg/mL (19.9-100); Troponin I 0.022 ng/mL (0.000-0.034)
[2023-06-14 07:29] LABS: Partial Thromboplastin Time 26.2 SECONDS (22.3-36.8)
[2023-06-14 07:36] LABS: Procalcitonin 0.3 ng/mL
[2023-06-14 07:45] LABS: Influenza A QL RT-PCR Negative (Negative); Influenza B QL RT-PCR Negative (Negative); SARS-CoV-2 RNA PCR Negative (Negative)
[2023-06-14] MEDS: MORPHINE SULFATE (*CRX) 4 MG/ML INJ IV PUSH ×2 (07:49→20:33)
[2023-06-14] MEDS: SODIUM CHLORIDE 0.9% IV 1,000 ML 125 ML IV CONT (07:55)
--- NOTE | 2023-06-14 09:47 | PM.CNGS ---
Assessment and Plan Assessment and plan (1) Pneumothorax: Qualifiers: Pneumothorax type: traumatic Encounter type: initial encounter Qualified Code(s): S27.0XXA - Traumatic pneumothorax, initial encounter Code(s): J93.9 - Pneumothorax, unspecified Status: Acute Assessment and Plan: Traumatic right pneumothorax 15-20% seen on CT chest with multiple right rib fractures. No mediastinal shift. This occurred status post a fall at home a week ago. Difficult to assess symptoms as patient is basically nonverbal. Family has not noticed any dyspnea at rest or with activity. She is stable in the ER on 4 liters of oxygen. Discussed the case with Dr. Prince. We would recommend proceeding with CT-guided chest tube placement of a pigtail catheter in Radiology. I spoke with the Radiologist regarding the procedure as she would likely require sedation. She has severe Parkinson's and is restless with limited ability to follow commands or remain still for the procedure. He plans to get anesthesia involved for placement of the chest tube. We will continue to monitor closely and manage the chest tube once placed. (2) Fracture, ribs: Qualifiers: Encounter type: initial encounter Fracture type: closed Laterality: right Qualified Code(s): S22.41XA - Multiple fractures of ribs, right side, initial encounter for closed fracture Code(s): S22.49XA - Multiple fractures of ribs, unspecified side, initial encounter for closed fracture Status: Acute Assessment and Plan: Right 6th, 7th, 8th, & 9th rib fractures s/p fall 1 week ago. (3) Parkinson's disease: Code(s): G20 - Parkinson's disease Status: Chronic (4) CKD (chronic kidney disease), stage III: Code(s): N18.30 - Chronic kidney disease, stage 3 unspecified Status: Acute (5) Acute UTI: Code(s): N39.0 - Urinary tract infection, site not specified Status: Acute Assessment and Plan: UA suggests UTI. Currently on IV ceftriaxone. Continue antibiotics per primary service. Urine culture pending. (6) Constipation: Qualifiers: Constipation type: unspecified constipation type Qualified Code(s): K59.00 - Constipation, unspecified Code(s): K59.00 - Constipation, unspecified Status: Acute Assessment and Plan: CT showed large volume of stool c/w significant constipation. Continue medical management per primary service. Plan I have discussed the patient's case and plan of care with Dr. Prince. Thank you for allowing us to see the patient in consultation and we will continue to follow along with you. History of Present Illness Consult details Consult date: 06/14/23 Reason for consult: other (Right pneumothorax) Requesting physician: Lionel Carlton MD Narrative: This is an 83-year-old woman with Parkinson's, hypertension, chronic kidney disease, and constipation, who was brought into the ED by her family for concerns of constipation. She has not had a bowel movement in about a week. They have been giving her Miralax daily for the past few days and tried giving her a fleets enema two days ago without any bowel movements. They felt she has been grimacing due to lower abdominal pain over the past few days. She also suffered a fall from her chair at home a week ago and fell on her right side. Initially, she did not seem to be uncomfortable and they said she didn't want to go to the hospital, so they did not get her checked out at that time. They did take her to her PCP about a week ago for the constipation and a rash, which is who recommended Miralax and provided zinc oxide cream for essentially a diaper rash. When in the ER, she had a chest x-ray that showed patchy right lung airspace disease and with possible mild right-sided volume loss, possible pneumonia vs atelectatic change. She then had a CTA chest, abdomen, and pelvis that showed small to moderate pneumothorax with probable mild right basi
[2023-06-14 10:02] LABS: Reflex Lactic Acid Yes or No Add Lactic
[2023-06-14 10:28] LABS: Lactic Acid 1.3 mmol/L (0.7-2.0)
[2023-06-14 10:39] LABS: Troponin I 0.025 ng/mL (0.000-0.034)
--- NOTE | 2023-06-14 10:40 | ADMGEN ---
This patient, Ana Luisa Martinez, was admitted to 3 Med Surg Room 307-01. Patient/family oriented to hospital policies and general routines including ID bracelet, bed and alarms, visiting hours, pain management, procedures, bathroom and other care routines, personal items, smoking policy, room service/diet, and visiting hours. Information on how to activate the Rapid Response Team has been discussed. Patient/Family are encouraged to report perceived risks to care and to ask questions if they do not understand what they are told or what they should do.
--- NOTE | 2023-06-14 13:02 | PM.IMHP ---
H&P: HPI History of Present Illness Date/Time: 06/14/23 13:02 Chief Complaint: Chest pain Abdominal pain Recent ground level fall Narrative: 83-year-old female with Parkinson's Disease, ?non verbal at baseline presented to emergency department with chief complaint of generalized weakness constipation and pain in the back and chest.? The patient reports that the pain is worse with movement and improved with rest and the patient does report that she had a fall about a week ago out of a chair where she landed on her right side. CTA chest with an abdomen pelvis CT was obtained which showed 4 contiguous rib fractures and a 15 to 20% pneumothorax.? CT of the abdomen pelvis showed constipation Review of Systems Review of Systems: ROS unobtainable: Yes unobtainable due to medical condition and unobtainable due to mental status PMFSH Past Medical History Medical History Balance disorder Benign essential hypertension Chronic kidney disease, stage 3 Depression with anxiety Gait disturbance Open-angle glaucoma of both eyes Oral cancer (06/2019) Status post resection and chemoradiation. Osteopenia after menopause Overactive bladder Parkinson's disease Surgical History Surgical History History of ankle surgery Left. History of appendectomy History of hysterectomy History of oral surgery Resection of oral cancer with right neck dissection. History of skin graft Family History Family History Father Depression, Onset Age: 70 Hypertension Suicide Son Factor 5 Leiden mutation, heterozygous Daughter Factor 5 Leiden mutation, heterozygous Mother Cancer Social History Social History Social History: Surrogate medical decision maker: Andrea Martinez, spouse. Code status: Full code. Smoking packs per day: 0.5 Smoking cigarettes per day: 10.0 Years smoked: 5 Smoking pack-years: 2.50 Smoking status: Former smoker Tobacco type: cigarettes Second hand tobacco smoke exposure: Yes Smoking end date: 09/17/69 Alcohol intake: never Substance use: never Substance use type: does not use Lack of Transportation: No Lack of Food: Never True Current Housing: I Have Housing Concerned About Future Housing: No Difficulty Paying Gas/Electric Bills: No Difficulty Paying for Meds: No Currently Unemployed: No Education: Bachelor's Degree Difficulty w/ Childcare or Family Care: No Additional living arrangements comments: Lives with spouse in [place]. 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 care concerns: No Meds Home Medications and Allergies Home Medications Medication Instructions Recorded Confirmed Type carbidopa 25 mg-levodopa 100 mg 2 tablet PO QID 06/28/20 06/07/23 History tablet brimonidine 0.2 %-timolol 0.5 % 1 drp ophthalmic (eye) Q12H 07/28/20 06/07/23 History eye drops (Combigan) bimatoprost 0.01 % eye drops 1 drp EACH EYE DAILY 01/19/23 06/07/23 History (Lumigan) citalopram 20 mg tablet 20 mg PO DAILY 01/19/23 06/07/23 History trospium 20 mg tablet 40 mg PO BID 01/19/23 06/07/23 History docusate sodium 100 mg capsule 100 mg PO BID PRN Constipation #30 01/21/23 06/07/23 Rx (Dulcolax Stool Softener caps (docusate)) polyethylene glycol 3350 17 gram 17 g PO QAM #100 ea 01/21/23 06/07/23 Rx oral powder packet (Miralax) nifedipine 30 mg tablet,extended 30 mg PO DAILY #90 tabs 04/18/23 06/07/23 Rx release peg 3350-electrolytes 236 240 ml PO Q10M #4,000 mL 06/07/23 06/07/23 Rx gram-22.74 gram-6.74 gram-5.86 gram solution (Golytely) zinc oxide 40 % topical ointment 1 applic topical 6XD PRN skin 06/07/23 06/07/23 Rx (Boudreauxs Butt Paste) irritation #113 grams ramelteon 8 mg tablet 8 mg PO QHS PRN sleep #90
[2023-06-14] MEDS: SENNA/DOCUSATE SODIUM TABLET 2 TAB PO ×2 (13:53→17:33)
[2023-06-14] MEDS: LIDOCAINE 5% PATCH 1 PATCH TRANSDERM (13:53)
[2023-06-14] MEDS: polyethylene glycoL 3350 17 GM POWD.PACK PO (13:54)
[2023-06-14] MEDS: SODIUM CHLORIDE 0.9% IV 1,000 ML 75 ML IV CONT (20:37)
[2023-06-15] VITALS (16 sets, daily range): BP systolic 148–186; BP diastolic 73–107; PULSE 84–99; RESP 10–18; TEMP 36.6–37.1; O2SAT 94–98
[2023-06-15] MEDS: MORPHINE SULFATE (*CRX) 4 MG/ML INJ IV PUSH (03:19)
[2023-06-15 06:23] LABS: Hematocrit 38.5 % (37.0-47.0); Hemoglobin 13.2 g/dL (12.0-15.0); Mean Corpuscular HGB Conc 34.3 g/dl (32-36); Mean Corpuscular Hemoglobin 30.8 pg (26-34); Mean Corpuscular Volume 89.7 fl (80-100); Mean Platelet Volume 9.9 fl (7.4-10.4); Platelet Count Result 216 k/mm3 (150-375); Red Blood Count 4.29 M/mm3 (4.2-5.4); Red Cell Distribution Width 12.9 % (11.5-14.5); White Blood Count 13.8 K/mm3 (4.5-10.0)
[2023-06-15 06:35] LABS: Anion Gap 2 mmol/L (8-16); Blood Urea Nitrogen 19 mg/dL (7-17); Calcium 8.2 mg/dL (8.4-10.2); Carbon Dioxide 27 mmol/L (22-30); Chloride 101 mmol/L (98-107); Estimated CRCL calculation 45 ml/min; Estimated Glomerular Filt Rate > 60; Glucose 85 mg/dL (65-110); Sodium 130 mmol/L (137-145)
[2023-06-15 08:23] LABS: Anisocytosis 2+ (NORMAL); Band Neutrophils Percent 33 % (0-6); Lymphocytes Absolute Manual 0.13 K/mm3 (1.1-4.5); Monocytes Absolute Manual 1.24 K/mm3 (0.1-0.90); Monocytes Percent Manual 9 % (3-9); Neutrophils Absolute Manual 12.42 K/mm3 (1.7-7.2); Neutrophils Percent Manual 57 % (46-73); Platelet Estimate Adequate (Adequate); Schistocytes None Seen (NORMAL); Total Cells Counted 100
[2023-06-15] MEDS: KCL 20MEQ/0.9% SOD CHL 1,000 ML 75 ML IV CONT (09:22)
[2023-06-15] MEDS: BRIMONIDINE TARTRATE 0.2% OP SOLN 5 ML BTL 1 DROP EACH EYE ×2 (09:28→18:06)
[2023-06-15] MEDS: TIMOLOL MALEATE 0.5% OP SOLN 5 ML BOTTLE 1 DROP EACH EYE ×2 (09:28→18:06)
--- NOTE | 2023-06-15 09:48 | PM.IMPN ---
Progress Note: A&P Assessment and Plan (1) Fracture, ribs: Qualifiers: Encounter type: initial encounter Fracture type: closed Laterality: right Qualified Code(s): S22.41XA - Multiple fractures of ribs, right side, initial encounter for closed fracture Code(s): S22.49XA - Multiple fractures of ribs, unspecified side, initial encounter for closed fracture Status: Acute (2) Pneumothorax: Qualifiers: Encounter type: initial encounter Pneumothorax type: traumatic Qualified Code(s): S27.0XXA - Traumatic pneumothorax, initial encounter Code(s): J93.9 - Pneumothorax, unspecified Status: Acute (3) Generalized weakness: Code(s): R53.1 - Weakness Status: Acute (4) Acute UTI: Code(s): N39.0 - Urinary tract infection, site not specified Status: Acute (5) Chronic kidney disease, stage 3: Code(s): N18.30 - Chronic kidney disease, stage 3 unspecified Status: Acute Plan 83-year-old female with Parkinson's Disease, ?non verbal at baseline presented to? emergency department with chief complaint of generalized weakness constipation and pain in the back and chest.? Found to have multiple rib fractures on the right side along with pneumothorax.? Patient seems to be stable at the moment. 1. Multiple right-sided rib fracture along with pneumothorax: Pain control Oxygen support Incentive spirometry Appreciate Surgery help Plan for chest tube placement under sedation Monitor hemodynamics closely 2. Possible UTI: Continue with ceftriaxone IV Follow-up urine culture 3. Dehydration+ hypokalemia+ hyponatremia: Change normal saline to normal saline + KCl Monitor sodium level Recheck BMP in a.m. 4. Constipation: Continue with stool softeners 5. History of Parkinson's disease: Home meds have been resumed 6. DVT prophylaxis:? SCDs for now, will add pharmacological agent once the chest tube is placed 7. Code status:? DNR 8. Disposition:? Pending improvement Time Spent With Patient Time with patient: 15 - 25 minutes Subjective Date/time seen: 06/15/23 09:48 Interval history: No acute events overnight Review of Systems Review of Systems: ROS unobtainable: Yes unobtainable due to medical condition Exam Const: General: no acute distress and awake Nutritional Appearance: thin and underweight Orientation/consciousness: Other orientation findings (nonverbal) Limitations: physical limitations and other limitations HENMT: Head: normocephalic and atraumatic Eyes: Sclera: sclerae normal Neck: Neck: supple Chest: Chest palpation & inspection: normal inspection of the chest and no crepitus Resp: Effort & Inspection: no respiratory distress Auscultation: diminished lung sounds (Right diminished compared to left) on the right Cardio: Rhythm: regular rhythm Heart sounds: S1 normal heart sound present and S2 normal heart sound present GI: Inspection: non-distended GI Palp: No Tenderness to palpation present (GI) (limited assessment, no grimacing with palpation of abdomen) and No Guarding due to palpation present (GI) Auscultation: Hypoactive bowel sounds present Skin: General skin exam: pallor Neuro: General: moves all extremities and Unable to assess gait (nonambulatory) Extrem: General: normal to inspection and no edema Psych: Insight: Limited insight present (Psych) Judgement: Limited judgement present (Psych) Objective Data Vital Signs Vital Signs: Vital Signs - 24 hr 06/14/23 14:00 06/14/23 16:00 06/14/23 21:25 Temperature 98.5 F 97.1 F L Pulse Rate 100 100 96 Respiratory Rate 16 12 Blood Pressure 148/70 H 160/59 H Pulse Oximetry 91 92 Oxygen Delivery Oxygen Flow Rate Fraction of Inspired Oxygen 06/14/23 20:00 06/15/23 00:00 06/15/23 04:00 Temperature Pulse Rate 97 96 84 Respiratory Rate Blood Pressure Pulse Oximetry Oxygen Delivery Oxygen Flow Rate Fraction of Inspired Oxyge
--- NOTE | 2023-06-15 11:21 | PHAR ---
Home Meds Verified: Ramelteon 8mg Take 1 tab PO HS PRN sleep Trospium 20mg Take 1 tablet PO BID - NOTE - order entered in profile has dose at 40mg PO BID
--- NOTE | 2023-06-15 11:27 | PM.PNGS ---
Progress Note: A&P Assessment and Plan (1) Pneumothorax: Qualifiers: Encounter type: initial encounter Pneumothorax type: traumatic Qualified Code(s): S27.0XXA - Traumatic pneumothorax, initial encounter Code(s): J93.9 - Pneumothorax, unspecified Status: Acute Assessment and Plan: Plan is to place a pigtail catheter in the right chest to evacuate the extrapleural air and hopefully allow the right lung to re-expand completely. That is scheduled be done later this afternoon. She otherwise is hemodynamically stable. Being his issue will be her pain from her rib fractures avoiding pneumonia. Subjective Subjective Date/Time Seen: 06/15/23 11:27 Interval history: Patient seems to be resting comfortably this morning. No shortness of breath. She is scheduled to get a right thoracic pigtail catheter placed under image guidance in Radiology for her mild to moderate right pneumothorax. Exam Resp: Effort & Inspection: normal respiratory effort Auscultation: clear to auscultation bilaterally Cardio: Rate: regular rate Rhythm: regular rhythm Objective Data Vital Signs Vital Signs: Vital Signs - 24 hr 06/14/23 14:00 06/14/23 16:00 06/14/23 21:25 Temperature 36.9 C 36.2 C L Pulse Rate 100 100 96 Respiratory Rate 16 12 Blood Pressure 148/70 H 160/59 H Pulse Oximetry 91 92 Oxygen Delivery Oxygen Flow Rate Fraction of Inspired Oxygen 06/14/23 20:00 06/15/23 00:00 06/15/23 04:00 Temperature Pulse Rate 97 96 84 Respiratory Rate Blood Pressure Pulse Oximetry Oxygen Delivery Oxygen Flow Rate Fraction of Inspired Oxygen 06/15/23 05:34 06/15/23 08:28 Temperature 36.9 C Pulse Rate 92 Respiratory Rate 16 Blood Pressure 172/80 H Pulse Oximetry 98 97 Oxygen Delivery Nasal Cannula Oxygen Flow Rate 2 Fraction of Inspired Oxygen 28 Intake/Output Intake/Output: Intake & Output 06/12/23 06/13/23 06/14/23 06/15/23 23:59 23:59 23:59 23:59 Intake Total 1360 240 Output Total 250 Balance 1110 240 Meds/Results Medications: Active Medications Generic Name Dose Route Start Last Admin Trade Name Freq PRN Reason Stop Dose Admin Acetaminophen 650 mg 06/14/23 09:05 Acetaminophen 325 Mg Tablet PO Q4H PRN Mild Pain (1-3) or Fever Brimonidine Tartrate 1 drop 06/15/23 09:00 06/15/23 09:28 Brimonidine Tartrate 0.2% Op Soln 5 Ml Btl EACH EYE 1 drop BID VALERIE Administration Carbidopa/Levodopa 2 tablet 06/15/23 09:00 Carbidopa/Levodopa 25/100 Mg Tablet PO QID VALERIE Citalopram Hydrobromide 20 mg 06/15/23 09:00 Citalopram Hydrobromide 20 Mg Tablet PO DAILY VALERIE Docusate Sodium 100 mg 06/15/23 07:24 Docusate Sodium 100 Mg Capsule PO BID PRN Constipation Hydralazine HCl 5 mg 06/15/23 07:28 Hydralazine Hcl 20 Mg/Ml Vial IV PUSH Q8H PRN Blood Pressure - High Ceftriaxone Sodium 1 gm in 50 mls @ 100 mls/hr 06/15/23 09:00 06/15/23 09:24 Rocephin 1 Gm/Ns 50 Ml IVPB 100 mls/hr Q24H VALERIE Administration Potassium Chloride/Sodium Chloride 1,000 mls @ 75 mls/hr 06/15/23 08:00 06/15/23 09:22 Kcl 20 Meq/Ns IV CONT 75 mls/hr .[id number] VALERIE Administration Latanoprost 1 drop 06/15/23 21:00 Latanoprost 0.005% Op Soln 2.5 Ml Btl EACH EYE HS VALERIE Lidocaine 1 patch 06/14/23 10:45 06/14/23 13:53 Lidocaine 5% Patch TRANSDERM 1 patch DAILY VALERIE Administration Miscellaneous Information 1 each 06/15/23 07:40 Trospium Nonformulary. Can Patient Use From Home? XX 07/15/23 07:39 [facility] Miscellaneous Information 1 each 06/15/23 07:40 Ramelteon Nonformulary. Can Pateint Use From Home? XX 07/15/23 07:39 [facility] Morphine Sulfate 4 mg 06/14/23 07:06 06/15/23 03:19 Morphine Sulfate (*Crx) 4 Mg/Ml Inj IV PUSH 4 mg Q2H PRN Administration Pain Rated 7-10 Nifedipine 30 mg 06/15/23 09:00 Nifedipine 3
--- NOTE | 2023-06-15 12:10 | WPDANESEPPF ---
Anes - Initial Pre Proc Eval Procedure: Operation Date: 06/15/23 12:00 Proposed Procedures p Chest Tube Placement Right Lung - Jeffrey Kamara MD Date/Time: 06/15/23 12:10 Surgeon: Irish Knight MD Pre Op Diagnosis: Multiple Rib Fractures, Small Pneumothorax Patient Data Age: 83 Gender: F Height: 1.73 m Weight: 45.2 kg Last Vital Signs Temp 36.9 C 06/15/23 05:34 Pulse 92 06/15/23 05:34 Resp 16 06/15/23 05:34 BP 172/80 H 06/15/23 05:34 Pulse Ox 97 06/15/23 08:28 O2 Del Method Nasal Cannula 06/15/23 08:28 O2 Flow Rate 2 06/15/23 08:28 FiO2 28 06/15/23 08:28 Allergies Allergy/AdvReac Type Severity Reaction Status Date / Time levofloxacin Allergy Unknown Rash Verified 06/07/23 13:40 prednisone Allergy Unknown Rash Verified 06/07/23 13:40 Sulfa (Sulfonamide Allergy Unknown Swelling Verified 06/07/23 13:40 Antibiotics) of Lip/Tongue/Throat sulfamethizole Allergy Unknown Rash Verified 06/07/23 13:40 sulfamethoxazole Allergy Unknown Rash Verified 06/07/23 13:40 trimethoprim Allergy Unknown Rash Verified 06/07/23 13:40 budesonide Allergy Swelling Verified 06/07/23 13:40 [From Rhinocort Aqua] of Lip/Tongue/Throat ciprofloxacin [From Cipro] Allergy Rash Verified 06/07/23 13:40 strawberry Allergy Rash Verified 06/07/23 13:40 nitrofurantoin AdvReac Intermediate nausea Verified 06/07/23 13:40 ropinirole AdvReac Diarrhea Verified 06/07/23 13:40 Home Medications Medication Instructions Recorded Confirmed Type carbidopa 25 mg-levodopa 100 mg 2 tablet PO QID 06/28/20 06/14/23 History tablet brimonidine 0.2 %-timolol 0.5 % 1 drp ophthalmic (eye) BID 07/28/20 06/14/23 History eye drops (Combigan) bimatoprost 0.01 % eye drops 1 drp EACH EYE DAILY 01/19/23 06/14/23 History (Lumigan) citalopram 20 mg tablet 20 mg PO DAILY 01/19/23 06/14/23 History trospium 20 mg tablet 40 mg PO BID 01/19/23 06/14/23 History docusate sodium 100 mg capsule 100 mg PO BID PRN Constipation #30 01/21/23 06/14/23 Rx (Dulcolax Stool Softener caps (docusate)) nifedipine 30 mg tablet,extended 30 mg PO DAILY #90 tabs 04/18/23 06/14/23 Rx release zinc oxide 40 % topical ointment 1 applic topical 6XD PRN skin 06/07/23 06/14/23 Rx (Boudreauxs Butt Paste) irritation #113 grams ramelteon 8 mg tablet 8 mg PO QHS PRN sleep #90 tabs 06/08/23 06/14/23 Rx Benefiber Sugar Free (dextrin) 2 tsp PO BID 06/14/23 06/14/23 History One-A-Day Women's 50 Plus 1 gummy PO DAILY 06/14/23 06/14/23 History Viactiv 1 gummy PO DAILY 06/14/23 06/14/23 History Zyrtec 10 mg PO DAILY 06/14/23 06/14/23 History cholecalciferol (vitamin D3) 50 50 mcg PO DAILY 06/14/23 06/14/23 History mcg (2,000 unit) tablet (Vitamin D3) Laboratory Tests 06/15/23 05:57 WBC 13.8 H K/mm3 (4.5-10.0) RBC 4.29 M/mm3 (4.2-5.4) Hgb 13.2 D g/dL (12.0-15.0) Hct 38.5 % (37.0-47.0) MCV 89.7 fl (80-100) MCH 30.8 pg (26-34) MCHC 34.3 g/dl (32-36) RDW 12.9 % (11.5-14.5) Plt Count 216 k/mm3 (150-375) MPV 9.9 fl (7.4-10.4) Immature Gran % (Auto) Not Reportable Neut % (Auto) Not Reportable Lymph % (Auto) Not Reportable Arroyo % (Auto) Not Reportable Eos % (Auto) Not Reportable Baso % (Auto) Not Reportable Lymph # (Auto) Not Reportable [place]roy[place] # (Auto) Not Reportable Eos # (Auto) Not Reportable Baso # (Auto) Not Reportable Abs Immat Gran (auto) Not Reportable Absolute Neuts (auto) Not Reportable Absolute Nucleated RBC Not Reportable Total Counted 100 Neutrophils % (Manual) 57 % (46-73) Band Neutrophils % 33 H % (0-6) Lymphocytes % (Manual) 1.0 L % (18-44) Monocytes % (Manual) 9 % (3-9) Nucleated RBC % Not Reportable Abs Neuts (Manual) 12.42 H K/mm3 (1.7-7.2) Abs Lymphs (Manual) 0.13 L K/mm3 (1.1-4.5) Abs Monocytes (Manual) 1.24 H K/mm3 (0
--- NOTE | 2023-06-15 13:04 | PCDIET ---
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 José Luis BID ordered for additional 90 kcal and 2.5 g protein, with glutamine and arginine for wound healing. Follow up as scheduled, every 5 days.
[2023-06-15] MEDS: CARBIDOPA/LEVODOPA 25/100 MG TABLET 2 TABLET PO ×2 (18:03→21:09)
[2023-06-15] MEDS: traMADol HCL (*CRX) 25 MG TABLET PO (21:11)
[2023-06-15] MEDS: LATANOPROST 0.005% OP SOLN 2.5 ML BTL 1 DROP EACH EYE (21:12)
[2023-06-16] VITALS (12 sets, daily range): BP systolic 108–171; BP diastolic 71–94; PULSE 62–95; RESP 16–19; TEMP 36.3–36.5; O2SAT 96–97
[2023-06-16] MEDS: hydrALAZINE HCL 20 MG/ML VIAL 5 MG IV PUSH (05:54)
[2023-06-16] MEDS: KCL 20MEQ/0.9% SOD CHL 1,000 ML 75 ML IV CONT (05:55)
[2023-06-16 06:34] LABS: Basophils Absolute Auto 0.1 K/mm3 (0.0-0.1); Basophils Percent Auto 0.4 % (0.2-1.2); Eosinophils Percent Auto 0.1 % (0-4.4); Immature Granulocyte Absolute 0.27 K/mm3 (0.00-0.031); Immature Granulocyte Percent A 2.3 % (0-0.5); Lymphocytes Absolute Auto 0.26 K/mm3 (0.9-3.2); Lymphocytes Percent Auto 2.2 % (18.3-44.2); Mean Corpuscular HGB Conc 34.2 g/dl (32-36); Mean Corpuscular Hemoglobin 31.1 pg (26-34); Mean Corpuscular Volume 90.9 fl (80-100); Mean Platelet Volume 9.7 fl (7.4-10.4); Monocytes Absolute Auto 0.8 K/mm3 (0.1-0.6); Monocytes Percent Auto 6.4 % (2.6-8.5); Neutrophils Absolute Auto 10.5 K/mm3 (1.3-6.7); Neutrophils Percent Auto 88.6 % (45.5-73.1); Platelet Count Result 210 k/mm3 (150-375); Red Blood Count 4.18 M/mm3 (4.2-5.4); Red Cell Distribution Width 13.4 % (11.5-14.5); White Blood Count 11.8 K/mm3 (4.5-10.0)
[2023-06-16 06:47] LABS: Anion Gap 6 mmol/L (8-16); Blood Urea Nitrogen 18 mg/dL (7-17); Calcium 8.1 mg/dL (8.4-10.2); Carbon Dioxide 26 mmol/L (22-30); Chloride 98 mmol/L (98-107); Estimated CRCL calculation 39 ml/min; Estimated Glomerular Filt Rate > 60; Glucose 73 mg/dL (65-110); Potassium 2.7 mmol/L (3.4-5.0); Sodium 130 mmol/L (137-145)
[2023-06-16] MEDS: POTASSIUM CHLORIDE INJ 40 MEQ in SODIUM CHLORIDE 0.9% IV 500 ML 130 MEQ IVPB (08:23)
[2023-06-16] MEDS: BRIMONIDINE TARTRATE 0.2% OP SOLN 5 ML BTL 1 DROP EACH EYE ×2 (08:25→16:47)
[2023-06-16] MEDS: TIMOLOL MALEATE 0.5% OP SOLN 5 ML BOTTLE 1 DROP EACH EYE ×2 (08:25→16:47)
[2023-06-16] MEDS: polyethylene glycoL 3350 17 GM POWD.PACK PO (08:26)
[2023-06-16] MEDS: NIFEdipine 30 MG TAB.ER.24 PO (08:26)
[2023-06-16] MEDS: CITALOPRAM HYDROBROMIDE 20 MG TABLET PO (08:26)
[2023-06-16] MEDS: SENNA/DOCUSATE SODIUM TABLET 2 TAB PO ×2 (08:26→16:47)
[2023-06-16] MEDS: CARBIDOPA/LEVODOPA 25/100 MG TABLET 2 TABLET PO ×4 (08:26→20:04)
--- NOTE | 2023-06-16 10:03 | PM.PNGS ---
Progress Note: A&P Assessment and Plan (1) Pneumothorax: Qualifiers: Encounter type: initial encounter Pneumothorax type: traumatic Qualified Code(s): S27.0XXA - Traumatic pneumothorax, initial encounter Code(s): J93.9 - Pneumothorax, unspecified Status: Acute Assessment and Plan: Successful evacuation and decompression of right pneumothorax after placement of pigtail catheter in the right chest cavity in Radiology yesterday. She pretty well. We will go ahead and place her pigtail catheter to water seal today. Repeat chest x-ray tomorrow and if lung continues to be re-expanded fully will plan on removal of pigtail catheter in next 24 to 48 hours. Continue other management as per hospitalist service. Okay to get the patient up out of bed and into a chair today. Subjective Subjective Date/Time Seen: 06/16/23 10:03 Interval history: Patient seems to be pretty calm today. Right chest pigtail drain is still in place. It is still to Pleur-evac suction this morning. Chest x-ray this morning showed complete expansion of right long with evacuation of the small right pneumothorax and improving pneumonia. She is not have any problems breathing. Exam Const: General: comfortable and no acute distress Resp: Effort & Inspection: normal respiratory effort Auscultation: clear to auscultation bilaterally Other: Right chest tube essentially no drainage. No air leak. GI: GI Palp: Yes Soft to palpation, No Firmness to palpation present (GI), No Tenderness to palpation present (GI), No Guarding due to palpation present (GI) and No Hernia present Objective Data Vital Signs Vital Signs: Vital Signs - 24 hr 06/15/23 13:06 06/15/23 13:21 06/15/23 13:36 Temperature 37.1 C Pulse Rate 93 95 93 Respiratory Rate 10 L 17 16 Blood Pressure 185/107 H 186/100 H 184/107 H Pulse Oximetry 94 94 95 Oxygen Delivery Simple Face Mask Nasal Cannula Nasal Cannula Oxygen Flow Rate 4 4 2 06/15/23 14:06 06/15/23 14:27 06/15/23 14:42 Temperature 36.7 C 36.7 C Pulse Rate 92 93 92 Respiratory Rate 14 13 15 Blood Pressure 168/98 H 179/102 H 184/101 H Pulse Oximetry 94 97 96 Oxygen Delivery Nasal Cannula Oxygen Flow Rate 2 06/15/23 15:12 06/15/23 16:12 06/15/23 12:00 Temperature 36.9 C 36.8 C Pulse Rate 92 91 99 Respiratory Rate 16 15 Blood Pressure 171/73 H 165/94 H Pulse Oximetry 96 96 Oxygen Delivery Oxygen Flow Rate 06/15/23 16:00 06/15/23 20:42 06/15/23 20:00 Temperature 36.6 C Pulse Rate 93 87 87 Respiratory Rate 18 Blood Pressure 148/87 H Pulse Oximetry 98 Oxygen Delivery Oxygen Flow Rate 06/16/23 00:00 06/16/23 04:00 06/16/23 04:55 Temperature 36.5 C Pulse Rate 95 91 88 Respiratory Rate 18 Blood Pressure 171/94 H Pulse Oximetry 97 Oxygen Delivery Oxygen Flow Rate 06/16/23 05:14 06/16/23 08:40 06/16/23 08:00 Temperature Pulse Rate Respiratory Rate Blood Pressure 168/80 H 140/72 Pulse Oximetry 97 Oxygen Delivery Nasal Cannula Oxygen Flow Rate 2 Intake/Output Intake/Output: Intake & Output 06/13/23 06/14/23 06/15/23 06/16/23 23:59 23:59 23:59 23:59 Intake Total 1360 1630 50 Output Total 250 Balance 1110 1630 50 Meds/Results Medications: Active Medications Generic Name Dose Route Start Last Admin Trade Name Freq PRN Reason Stop Dose Admin Acetaminophen 650 mg 06/14/23 09:05 Acetaminophen 325 Mg Tablet PO Q4H PRN Mild Pain (1-3) or Fever Brimonidine Tartrate 1 drop 06/15/23 09:00 06/16/23 08:25 Brimonidine Tartrate 0.2% Op Soln 5 Ml Btl EACH EYE 1 drop BID VALERIE Administration Carbidopa/Levodopa 2 tablet 06/15/23 09:00 06/16/23 08:26 Carbidopa/Levodopa 25/100 Mg Tablet PO 2 tablet QID VALERIE Administration Citalopram Hydrobromide 20 mg 06/15/23 09:00 06/16/23 08:26 Citalopram Hydrobromide 20 Mg Tablet PO 20 mg DAILY VALERIE Administration D
--- NOTE | 2023-06-16 10:20 | PM.IMPN ---
Progress Note: A&P Assessment and Plan (1) Fracture, ribs: Qualifiers: Encounter type: initial encounter Fracture type: closed Laterality: right Qualified Code(s): S22.41XA - Multiple fractures of ribs, right side, initial encounter for closed fracture Code(s): S22.49XA - Multiple fractures of ribs, unspecified side, initial encounter for closed fracture Status: Acute Assessment and Plan: Multiple right-sided rib fracture along with pneumothorax: Pain control Oxygen support Incentive spirometry Appreciate Surgery help Plan for chest tube placement under sedation Monitor hemodynamics closely (2) Pneumothorax: Qualifiers: Encounter type: initial encounter Pneumothorax type: traumatic Qualified Code(s): S27.0XXA - Traumatic pneumothorax, initial encounter Code(s): J93.9 - Pneumothorax, unspecified Status: Acute Assessment and Plan: Right pigtail catheter to wall suction, no drainage in pleuravac, no air leak noted. Improved lung sounds. (3) Generalized weakness: Code(s): R53.1 - Weakness Status: Acute Assessment and Plan: acute worsening of chronic weakness related to Parkinson's disease (4) Acute UTI: Code(s): N39.0 - Urinary tract infection, site not specified Status: Acute Assessment and Plan: Gram negative bacilli in urine culture, on Rocephin pending sensitivities, multiple allergies (5) Chronic kidney disease, stage 3: Code(s): N18.30 - Chronic kidney disease, stage 3 unspecified Status: Acute Assessment and Plan: Improved renal function noted, GFR >60 (6) Hyponatremia: Code(s): E87.1 - Hypo-osmolality and hyponatremia Status: Acute Assessment and Plan: 130 since admission, stable without changes during hospitalization thus far (7) Hypokalemia: Code(s): E87.6 - Hypokalemia Status: Acute Assessment and Plan: 2.7 this morning. IV potassium was ordered. Patient did not tolerate oral powder yesterday and too weak to swallow large KCL tablets. (8) Constipation: Qualifiers: Constipation type: unspecified constipation type Qualified Code(s): K59.00 - Constipation, unspecified Code(s): K59.00 - Constipation, unspecified Status: Acute Assessment and Plan: Continue stool softeners, extreme constipation per imaging (9) Parkinson's disease: Code(s): G20 - Parkinson's disease Status: Chronic Assessment and Plan: Continue home medications. Patient not ambulatory or verbal due to weakness associated with Parkinson's Time Spent With Patient Time with patient: 25 - 35 minutes Subjective Date/time seen: 06/16/23 10:20 Interval history: 83-year-old female with Parkinson's Disease, ?non verbal at baseline presented to? emergency department with chief complaint of generalized weakness constipation and pain in the back and chest.? Found to have multiple rib fractures on the right side along with pneumothorax.? Patient seems to be stable at the moment. 06/16: Patient appears comfortable, right-sided chest tube in place to wall suction with no drainage. Lung sounds clear. Unable to hear patient as she attempts to talk even with my ear right up to her lips. Review of Systems Review of Systems: ROS unobtainable: Yes other ( Unable to hear patient's attempt to vocalize) Exam Const: General: no acute distress, awake, thin and underweight Nutritional Appearance: thin and underweight Orientation/consciousness: Other orientation findings (nonverbal) Limitations: physical limitations and other limitations HENMT: Head: normocephalic and atraumatic Eyes: Sclera: sclerae normal Neck: Neck: supple Chest: Chest palpation & inspection: normal inspection of the chest and no crepitus Resp: Effort & Inspection: no respiratory distress Auscultation: diminished lung sounds (Right diminished compared to left) on the rig
[2023-06-16] MEDS: LATANOPROST 0.005% OP SOLN 2.5 ML BTL 1 DROP EACH EYE (20:05)
--- NOTE | 2023-06-16 22:32 | ECG_ITS ---
Measurements Intervals [place] Rate: 77 P: 69 VA: 138 QRS: -33 QRSD: 84 T: 25 QT: 383 QTc: 436 Interpretive Statements SINUS RHYTHM MARKED LEFT AXIS DEVIATION [QRS AXIS < -30] NONSPECIFIC T-WAVE ABNORMALITY ABNORMAL ECG COMPARED TO ECG 06/14/2023 05:37:16 NO SIGNIFICANT CHANGE Electronically Signed On 06-17-2023 9:25:11 CDT by Jeronimo Wilson M.D.
[2023-06-17] VITALS (9 sets, daily range): BP systolic 133–142; BP diastolic 72–76; PULSE 69–93; RESP 14–16; TEMP 36.2–36.3; O2SAT 95–99
[2023-06-17 00:21] LABS: Anion Gap 2 mmol/L (8-16); Blood Urea Nitrogen 18 mg/dL (7-17); Calcium 7.7 mg/dL (8.4-10.2); Carbon Dioxide 28 mmol/L (22-30); Chloride 100 mmol/L (98-107); Estimated CRCL calculation 53 ml/min; Estimated Glomerular Filt Rate > 60; Glucose 92 mg/dL (65-110); Potassium 2.8 mmol/L (3.4-5.0); Sodium 130 mmol/L (137-145)
[2023-06-17] MEDS: KCL 20 MEQ/SW 100 ML 100 ML 50 MEQ IVPB (01:07)
[2023-06-17] MEDS: KCL 20MEQ/0.9% SOD CHL 1,000 ML 75 ML IV CONT ×2 (01:14→18:40)
[2023-06-17] MEDS: POTASSIUM CHLORIDE 20 MEQ ER TABLET 40 MEQ PO (01:16)
[2023-06-17] MEDS: MORPHINE SULFATE (*CRX) 4 MG/ML INJ IV PUSH ×3 (05:19→15:01)
[2023-06-17 06:07] LABS: Hematocrit 41.8 % (37.0-47.0); Hemoglobin 14.1 g/dL (12.0-15.0); Mean Corpuscular HGB Conc 33.7 g/dl (32-36); Mean Corpuscular Hemoglobin 30.6 pg (26-34); Mean Corpuscular Volume 90.7 fl (80-100); Mean Platelet Volume 9.7 fl (7.4-10.4); Platelet Count Result 197 k/mm3 (150-375); Red Blood Count 4.61 M/mm3 (4.2-5.4); Red Cell Distribution Width 13.5 % (11.5-14.5)
[2023-06-17 06:25] LABS: Alanine Aminotransferase 8 U/L (6-35); Alkaline Phosphatase 85 U/L (38-126); Anion Gap 3 mmol/L (8-16); Aspartate Amino Transferase 31 U/L (14-36); Bilirubin,Total 0.8 mg/dL (0.2-1.3); Blood Urea Nitrogen 15 mg/dL (7-17); Carbon Dioxide 27 mmol/L (22-30); Chloride 101 mmol/L (98-107); Estimated CRCL calculation 53 ml/min; Estimated Glomerular Filt Rate > 60; Glucose 101 mg/dL (65-110); Potassium 3.8 mmol/L (3.4-5.0); Sodium 131 mmol/L (137-145)
[2023-06-17 06:30] LABS: Band Neutrophils Percent 8 % (0-6); Lymphocytes Percent Manual 3 % (18-44); Metamyelocytes Percent 2 %; Monocytes Percent Manual 8 % (3-9); Neutrophils Percent Manual 79 % (46-73); Platelet Estimate Adequate (Adequate); Schistocytes None Seen (NORMAL); Total Cells Counted 100
--- NOTE | 2023-06-17 07:43 | PM.IMPN ---
Progress Note: A&P Assessment and Plan (1) Fracture, ribs: Qualifiers: Encounter type: initial encounter Fracture type: closed Laterality: right Qualified Code(s): S22.41XA - Multiple fractures of ribs, right side, initial encounter for closed fracture Code(s): S22.49XA - Multiple fractures of ribs, unspecified side, initial encounter for closed fracture Status: Acute Assessment and Plan: Multiple right-sided rib fracture along with pneumothorax: Pain control Oxygen support Incentive spirometry Appreciate Surgery help Plan for chest tube placement under sedation Monitor hemodynamics closely 06/17: chest tube to water seal, improved CXR (2) Pneumothorax: Qualifiers: Encounter type: initial encounter Pneumothorax type: traumatic Qualified Code(s): S27.0XXA - Traumatic pneumothorax, initial encounter Code(s): J93.9 - Pneumothorax, unspecified Status: Acute Assessment and Plan: Right pigtail catheter to wall suction, no drainage in pleuravac, no air leak noted. Improved lung sounds. 06/17: Chest tube to water seal (3) Generalized weakness: Code(s): R53.1 - Weakness Status: Acute Assessment and Plan: acute worsening of chronic weakness related to Parkinson's disease 06/17: Up to chair for meals, continue PT/OT (4) Acute UTI: Code(s): N39.0 - Urinary tract infection, site not specified Status: Acute Assessment and Plan: Gram negative bacilli in urine culture, on Rocephin pending sensitivities, multiple allergies 06/17: E. coli identified, continue Rocephin for now (5) Chronic kidney disease, stage 3: Code(s): N18.30 - Chronic kidney disease, stage 3 unspecified Status: Acute Assessment and Plan: Improved renal function noted, GFR >60 (6) Hyponatremia: Code(s): E87.1 - Hypo-osmolality and hyponatremia Status: Acute Assessment and Plan: 130 since admission, stable without changes during hospitalization thus far 06/17: 131, remains stable (7) Hypokalemia: Code(s): E87.6 - Hypokalemia Status: Acute Assessment and Plan: 2.7 this morning. IV potassium was ordered. Patient did not tolerate oral powder yesterday and too weak to swallow large KCL tablets. 06/17: normal at 3.8 (8) Constipation: Qualifiers: Constipation type: unspecified constipation type Qualified Code(s): K59.00 - Constipation, unspecified Code(s): K59.00 - Constipation, unspecified Status: Acute Assessment and Plan: Continue stool softeners, extreme constipation per imaging (9) Parkinson's disease: Code(s): G20 - Parkinson's disease Status: Chronic Assessment and Plan: Continue home medications. Patient not ambulatory or verbal due to weakness associated with Parkinson's Plan Remove chest tube in 24-48 hours per Surgery plan Continue Rocephin for UTI Wean oxygen as tolerated Mobilize to chair Time Spent With Patient Time with patient: 25 - 35 minutes Subjective Date/time seen: 06/17/23 07:43 Interval history: 83-year-old female with Parkinson's Disease, ?non verbal at baseline presented to? emergency department with chief complaint of generalized weakness constipation and pain in the back and chest.? Found to have multiple rib fractures on the right side along with pneumothorax.? Patient seems to be stable at the moment. 06/16: Patient appears comfortable, right-sided chest tube in place to wall suction with no drainage. Lung sounds clear. Unable to hear patient as she attempts to talk even with my ear right up to her lips. 06/17: No acute overnight events. Chest tube to water seal with improving CXR. Plan to DC tube in 24-48 hours per Surgery note. Urine culture E. coli, continue Rocephin for now. Titrate oxygen down as tolerated. Review of Systems Review of Systems: ROS unobtainable: Yes other ( Unable to hear patient's attempt to
[2023-06-17] MEDS: CARBIDOPA/LEVODOPA 25/100 MG TABLET 2 TABLET PO ×4 (09:41→20:43)
[2023-06-17] MEDS: LIDOCAINE 5% PATCH 1 PATCH TRANSDERM (09:42)
[2023-06-17] MEDS: NIFEdipine 30 MG TAB.ER.24 PO (09:42)
[2023-06-17] MEDS: BRIMONIDINE TARTRATE 0.2% OP SOLN 5 ML BTL 1 DROP EACH EYE ×2 (09:42→16:05)
[2023-06-17] MEDS: SENNA/DOCUSATE SODIUM TABLET 2 TAB PO ×2 (09:42→16:05)
[2023-06-17] MEDS: TIMOLOL MALEATE 0.5% OP SOLN 5 ML BOTTLE 1 DROP EACH EYE ×2 (09:42→16:05)
[2023-06-17] MEDS: polyethylene glycoL 3350 17 GM POWD.PACK PO (09:42)
[2023-06-17] MEDS: CITALOPRAM HYDROBROMIDE 20 MG TABLET PO (09:42)
--- NOTE | 2023-06-17 10:24 | PM.PNGS ---
Progress Note: A&P Assessment and Plan (1) Pneumothorax: Qualifiers: Encounter type: initial encounter Pneumothorax type: traumatic Qualified Code(s): S27.0XXA - Traumatic pneumothorax, initial encounter Code(s): J93.9 - Pneumothorax, unspecified Status: Acute Assessment and Plan: Right pneumothorax due to rib fractures now resolved after aspiration of the air with a pigtail catheter placed in Radiology. No evidence of recurrent pneumothorax with the pigtail catheter water seal. Catheter is removed at the bedside today and dressed with clean gauze and Vaseline gauze. We will get chest x-ray in 4hours but if it continues to show no pneumothorax and very stable then from a surgical perspective patient may be discharged from the hospital at discretion of the hospitalist service. Subjective Subjective Date/Time Seen: 06/17/23 10:24 Interval history: Patient is doing very well this morning. Seems to be less agitated. She was working with therapy getting into a chair. Repeat chest x-ray today with the patient's right chest tube on water seal for 24hours reveals no evidence of recurrent right pneumothorax. Infiltrates in to be in improving. Exam Resp: Other: Right chest tube site clean and dry. Essentially no drainage. Objective Data Vital Signs Vital Signs: Vital Signs - 24 hr 06/16/23 12:00 06/16/23 16:00 06/16/23 14:00 Temperature 36.4 C L Pulse Rate 85 82 62 Respiratory Rate 19 Blood Pressure 131/83 Pulse Oximetry 96 Oxygen Delivery Oxygen Flow Rate Fraction of Inspired Oxygen 06/16/23 22:00 06/16/23 20:00 06/16/23 23:07 Temperature 36.3 C L Pulse Rate 78 78 Respiratory Rate 16 18 Blood Pressure 108/71 Pulse Oximetry 97 96 Oxygen Delivery Nasal Cannula Oxygen Flow Rate 3 Fraction of Inspired Oxygen 32 06/17/23 00:00 06/17/23 04:00 06/17/23 06:00 Temperature 36.3 C L Pulse Rate 70 69 77 Respiratory Rate 16 Blood Pressure 136/75 Pulse Oximetry 99 Oxygen Delivery Oxygen Flow Rate Fraction of Inspired Oxygen Intake/Output Intake/Output: Intake & Output 06/14/23 06/15/23 06/16/23 06/17/23 23:59 23:59 23:59 23:59 Intake Total 1360 2781 783 5670 Output Total 250 400 700 Balance 1110 1630 250 950 Meds/Results Medications: Active Medications Generic Name Dose Route Start Last Admin Trade Name Freq PRN Reason Stop Dose Admin Acetaminophen 650 mg 06/14/23 09:05 Acetaminophen 325 Mg Tablet PO Q4H PRN Mild Pain (1-3) or Fever Brimonidine Tartrate 1 drop 06/15/23 09:00 06/17/23 09:42 Brimonidine Tartrate 0.2% Op Soln 5 Ml Btl EACH EYE 1 drop BID VALERIE Administration Carbidopa/Levodopa 2 tablet 06/15/23 09:00 06/17/23 09:41 Carbidopa/Levodopa 25/100 Mg Tablet PO 2 tablet QID VALERIE Administration Citalopram Hydrobromide 20 mg 06/15/23 09:00 06/17/23 09:42 Citalopram Hydrobromide 20 Mg Tablet PO 20 mg DAILY VALERIE Administration Docusate Sodium 100 mg 06/15/23 07:24 Docusate Sodium 100 Mg Capsule PO BID PRN Constipation Hydralazine HCl 5 mg 06/15/23 07:28 06/16/23 05:54 Hydralazine Hcl 20 Mg/Ml Vial IV PUSH 5 mg Q8H PRN Administration Blood Pressure - High Ceftriaxone Sodium 1 gm in 50 mls @ 100 mls/hr 06/15/23 09:00 06/17/23 09:41 Rocephin 1 Gm/Ns 50 Ml IVPB 100 mls/hr Q24H VALERIE Administration Potassium Chloride/Sodium Chloride 1,000 mls @ 75 mls/hr 06/15/23 08:00 06/17/23 05:22 Kcl 20 Meq/Ns IV CONT 75 mls/hr .[id number] VALERIE Infusion Latanoprost 1 drop 06/15/23 21:00 06/16/23 20:05 Latanoprost 0.005% Op Soln 2.5 Ml Btl EACH EYE 1 drop HS VALERIE Administration Lidocaine 1 patch 06/14/23 10:45 06/17/23 09:42 Lidocaine 5% Patch TRANSDERM 1 patch DAILY VALERIE Administration Morphine Sulfate 4 mg 06/14/23 07:06 06/17/23 09:36 Morphine Sulfate (*Crx) 4 Mg/Ml Inj IV PUSH 4 mg Q2H
--- NOTE | 2023-06-17 13:08 | PC.NURSE ---
Pt is unable to participate or contribute in plan of care. Pt had Chest tube removed today and tolerated well. Pt was weaned off of oxygen and is tolerating well. Pt worked with therapy today. Pt is up in chair. Pt had a few bites of lunch today. Pt will continue to be monitored for any changes in status. Pt possibly D/C tomorrow.
[2023-06-17] MEDS: LATANOPROST 0.005% OP SOLN 2.5 ML BTL 1 DROP EACH EYE (20:43)
[2023-06-18] VITALS: PULSE 80
[2023-06-18 04:00] VITALS: PULSE 81
[2023-06-18 04:26] VITALS: BP 173/98; PULSE 82; RESP 18; TEMP 36.3; O2SAT 98
[2023-06-18 08:00] VITALS: PULSE 86
[2023-06-18 08:12] LABS: Hematocrit 42.1 % (37.0-47.0); Hemoglobin 14.5 g/dL (12.0-15.0); Mean Corpuscular HGB Conc 34.4 g/dl (32-36); Mean Corpuscular Hemoglobin 31.3 pg (26-34); Mean Corpuscular Volume 90.7 fl (80-100); Mean Platelet Volume 9.5 fl (7.4-10.4); Platelet Count Result 192 k/mm3 (150-375); Red Blood Count 4.64 M/mm3 (4.2-5.4); Red Cell Distribution Width 13.1 % (11.5-14.5); White Blood Count 9.6 K/mm3 (4.5-10.0)
[2023-06-18 08:14] LABS: Alanine Aminotransferase 9 U/L (6-35); Albumin Level 3.2 g/dL (3.5-5.1); Alkaline Phosphatase 89 U/L (38-126); Anion Gap 4 mmol/L (8-16); Aspartate Amino Transferase 27 U/L (14-36); Bilirubin,Total 0.6 mg/dL (0.2-1.3); Blood Urea Nitrogen 10 mg/dL (7-17); Carbon Dioxide 27 mmol/L (22-30); Chloride 98 mmol/L (98-107); Estimated CRCL calculation 64 ml/min; Estimated Glomerular Filt Rate > 60; Glucose 109 mg/dL (65-110); Potassium 3.2 mmol/L (3.4-5.0); Sodium 129 mmol/L (137-145)
[2023-06-18] MEDS: KCL 20MEQ/0.9% SOD CHL 1,000 ML 75 ML IV CONT (08:16)
[2023-06-18] MEDS: SENNA/DOCUSATE SODIUM TABLET 2 TAB PO (08:17)
[2023-06-18] MEDS: LIDOCAINE 5% PATCH 1 PATCH TRANSDERM (08:17)
[2023-06-18] MEDS: polyethylene glycoL 3350 17 GM POWD.PACK PO (08:17)
[2023-06-18] MEDS: CARBIDOPA/LEVODOPA 25/100 MG TABLET 2 TABLET PO (08:17)
[2023-06-18] MEDS: CITALOPRAM HYDROBROMIDE 20 MG TABLET PO (08:17)
[2023-06-18] MEDS: NIFEdipine 30 MG TAB.ER.24 PO (08:17)
[2023-06-18] MEDS: BRIMONIDINE TARTRATE 0.2% OP SOLN 5 ML BTL 1 DROP EACH EYE (08:18)
[2023-06-18] MEDS: TIMOLOL MALEATE 0.5% OP SOLN 5 ML BOTTLE 1 DROP EACH EYE (08:18)
[2023-06-18 08:59] LABS: Band Neutrophils Percent 5 % (0-6); Eosinophils Absolute Manual 0.09 K/mm3 (0.02-0.5); Eosinophils Percent Manual 1 % (0-4); Lymphocytes Absolute Manual 0.76 K/mm3 (1.1-4.5); Metamyelocytes Percent 1 %; Monocytes Absolute Manual 0.57 K/mm3 (0.1-0.90); Monocytes Percent Manual 6 % (3-9); Neutrophils Absolute Manual 8.06 K/mm3 (1.7-7.2); Neutrophils Percent Manual 79 % (46-73); Platelet Estimate Adequate (Adequate); Schistocytes None Seen (NORMAL); Total Cells Counted 100
--- NOTE | 2023-06-18 09:22 | PM.DS ---
DS: Admitting Diagnosis Discharge Date 06/18/2023 Admitting Diagnosis fractured right ribs, pneumothorax, generalized weakness, CKD stage 3, acute UTI DS: Discharge Diagnosis Discharge Diagnosis (1) Fracture, ribs: Qualifiers: Encounter type: initial encounter Fracture type: closed Laterality: right Qualified Code(s): S22.41XA - Multiple fractures of ribs, right side, initial encounter for closed fracture Code(s): S22.49XA - Multiple fractures of ribs, unspecified side, initial encounter for closed fracture Status: Acute (2) Pneumothorax: Qualifiers: Encounter type: initial encounter Pneumothorax type: traumatic Qualified Code(s): S27.0XXA - Traumatic pneumothorax, initial encounter Code(s): J93.9 - Pneumothorax, unspecified Status: Acute (3) Generalized weakness: Code(s): R53.1 - Weakness Status: Acute (4) Acute UTI: Code(s): N39.0 - Urinary tract infection, site not specified Status: Acute (5) Chronic kidney disease, stage 3: Code(s): N18.30 - Chronic kidney disease, stage 3 unspecified Status: Acute (6) Hyponatremia: Code(s): E87.1 - Hypo-osmolality and hyponatremia Status: Acute (7) Hypokalemia: Code(s): E87.6 - Hypokalemia Status: Acute (8) Constipation: Qualifiers: Constipation type: unspecified constipation type Qualified Code(s): K59.00 - Constipation, unspecified Code(s): K59.00 - Constipation, unspecified Status: Acute (9) Parkinson's disease: Code(s): G20 - Parkinson's disease Status: Chronic DS: Summary Hospital Course Reason for hospitalization: right-sided pneumothorax with progressive dyspnea and right rib fractures Hospital Course: this is an 83-year-old female patient who was admitted to the hospital after discovery of right-sided pneumothorax and rib fractures. Patient had suffered a fall recently on to her right side and had been experiencing progressive dyspnea. She had a pigtail catheter placed by General surgery with resolution pneumothorax. Catheter was removed on 06/17 with finding very small pneumothorax present several hours after tube was removed. Patient was monitored overnight and no longer required oxygenation. In fact, she is stronger and able to vocalize on day of discharge. Repeat chest x-ray was stable with only small pneumothorax present. Patient was very pleased to be able to go home. While in the hospital she was treated for urinary tract infection with 3 day course of IV Rocephin. Patient discharged with stool softeners, small dose of tramadol for severe pain and incentive spirometer to use. Status at Discharge Cognitive/behavioral status at discharge: awake and alert very pleasant Functional status at discharge: wheelchair bound Overall status at discharge: patient is back to baseline Time Spent with Patient Time attestation: Total time spent providing and/or coordinating discharge services: 33 minutes Time spent: Greater than 30 minutes Exam Const: General: no acute distress, awake, thin and underweight Nutritional Appearance: thin and underweight Orientation/consciousness: Other orientation findings ( awake alert) Limitations: physical limitations and other limitations HENMT: Head: normocephalic and atraumatic Eyes: Sclera: sclerae normal Neck: Neck: supple Chest: Chest palpation & inspection: normal inspection of the chest and no crepitus Resp: Effort & Inspection: no respiratory distress Auscultation: clear to auscultation bilaterally Cardio: Rhythm: regular rhythm Heart sounds: S1 normal heart sound present and S2 normal heart sound present GI: Inspection: non-distended Auscultation: Hypoactive bowel sounds present Skin: General skin exam: pallor Neuro: General: moves all extremities and Unable to assess gait (nonambulatory) Gait exam (Neuro): Unable to assess gait (nonambulatory) Extrem:
--- NOTE | 2023-06-18 13:05 | PM.PNGS ---
Progress Note: A&P Assessment and Plan (1) Pneumothorax: Qualifiers: Encounter type: initial encounter Pneumothorax type: traumatic Qualified Code(s): S27.0XXA - Traumatic pneumothorax, initial encounter Code(s): J93.9 - Pneumothorax, unspecified Status: Acute Assessment and Plan: Right pneumothorax due to rib fractures now resolved after aspiration of the air with a pigtail catheter placed in Radiology. Pigtail chest tube catheter removed yesterday Repeat chest x-ray this morning appears stable Okay to discharge from our standpoint when okay with primary service. Plan I have discussed the patient's case and plan of care with Dr. Prince. Subjective Subjective Date/Time Seen: 06/18/23 09:15 Patient reports: no new complaints Interval history: Chart reviewed since last seen. Patient much more alert than when I saw her in the ER. She is able to answer simple questions. She denies any chest pain or shortness of breath. She is sitting up in the chair eating breakfast. Chest tube was removed yesterday. Exam Const: General: no acute distress and awake Orientation/consciousness: patient oriented x3 Chest: Chest palpation & inspection: normal inspection of the chest and no crepitus Other: Right chest dressing dry and intact. Resp: Effort & Inspection: normal respiratory effort Auscultation: diminished lung sounds (Slightly diminished right more than left in upper lung bush) Objective Data Vital Signs Vital Signs: Vital Signs - 24 hr 06/17/23 14:00 06/17/23 20:34 06/17/23 20:00 Temperature 97.1 F L 97.1 F L Pulse Rate 90 92 87 Respiratory Rate 14 16 Blood Pressure 133/72 142/76 H Pulse Oximetry 95 95 Oxygen Delivery 06/18/23 00:00 06/18/23 04:00 06/18/23 04:26 Temperature 97.3 F L Pulse Rate 80 81 82 Respiratory Rate 18 Blood Pressure 173/98 H Pulse Oximetry 98 Oxygen Delivery 06/18/23 08:00 06/18/23 08:00 Temperature Pulse Rate 86 Respiratory Rate Blood Pressure Pulse Oximetry Oxygen Delivery Room Air Intake/Output Intake/Output: Intake & Output 06/15/23 06/16/23 06/17/23 06/18/23 23:59 23:59 23:59 23:59 Intake Total 8364 374 1291 1120 Output Total 400 1200 Balance 7738 412 4406 1120 Meds/Results Radiology Results: ITS Impressions Chest/Abdomen/Pelvis CTA 06/14/23 06:10 Impression: Small to moderate pneumothorax with probable mild right basilar atelectatic change. Probable acute fractures of the anterior right sixth, seventh, eighth, and ninth ribs. Very large stool burden suggests constipation. No definite bowel obstruction. 4 mm left upper lobe groundglass pulmonary nodule. According to Fleischner Society criteria, no further follow-up required for a low-risk patient. For a high-risk patient, consider 12 month follow-up CT. Case discussed with Dr. Carlton at the time of this reading. Ribs w/Chest X-Ray 06/15/23 12:03 Impression: 1: Possible nondisplaced right third rib fracture. 2: Moderate right pneumothorax with underlying compressive atelectasis. 2: Chronic right fourth, fifth and sixth rib fractures. Chest Tube Insertion 06/15/23 13:27 IMPRESSION: 1. Successful CT-guided right chest tube placement with decrease in size of a now small right hydropneumothorax. 2. Interval decrease in the tree-in-bud opacities in the right upper and lower lobes consistent with improving pneumonia. Chest X-Ray 06/18/23 06:19 IMPRESSION: 1. Stable small right pneumothorax. Labs Labs: Laboratory Results - last 24 hr 06/18/23 07:49 WBC 9.6 RBC 4.64 Hgb 14.5 Hct 42.1 MCV 90.7 MCH 31.3 MCHC 34.4 RDW 13.1 Plt Count 192 MPV 9.5 Immature Gran % (Auto) Not Reportable Neut % (Auto) Not Reportable Lymph % (Auto) Not Reportable [place] % (Auto) Not Reportable Eos % (Auto) Not Reportable Baso % (Auto) Not Reportable Lymph # (Auto) Not Reportab
== END 2023-06-18 11:05 | disposition home health service (06) | DRG 199 ==
LOC: ANHED 07:16 → ANH3MEDSUR 08:19
PROVIDERS: Radiology Diagnostic Radiology; Student in an Organized Health Care Education/Training Program; Admitting Provider Internal Medicine; Emergency Provider Emergency Medicine; PCP Family Medicine; Visit Provider Nurse Practitioner
PROC: BB4BZZZ Ultrasonography of Pleura (ICD-10-PCS; CPT 76942; principal; 2023-06-15 12:00)
DX: S27.0XXA Traumatic pneumothorax, initial encounter (principal); E43 Unspecified severe protein-calorie malnutrition; E87.1 Hypo-osmolality and hyponatremia; S22.41XA Multiple fractures of ribs, right side, initial encounter for closed fracture; N39.0 Urinary tract infection, site not specified; R64 Cachexia; Z68.1 Body mass index [BMI] 19.9 or less, adult; Z20.822 Contact with and (suspected) exposure to COVID-19; G20.A1 Parkinson's disease without dyskinesia, without mention of fluctuations; N32.81 Overactive bladder; E86.0 Dehydration; M85.80 Other specified disorders of bone density and structure, unspecified site; E87.6 Hypokalemia; H40.10X0 Unspecified open-angle glaucoma, stage unspecified; Z66 Do not resuscitate; F41.8 Other specified anxiety disorders; K59.00 Constipation, unspecified; I12.9 Hypertensive chronic kidney disease with stage 1 through stage 4 chronic kidney disease, or unspecified chronic kidney disease; N18.30 Chronic kidney disease, stage 3 unspecified; Z85.819 Personal history of malignant neoplasm of unspecified site of lip, oral cavity, and pharynx; Z90.49 Acquired absence of other specified parts of digestive tract; Z90.710 Acquired absence of both cervix and uterus; Z87.891 Personal history of nicotine dependence
CPT/HCPCS: 32550; 36415; 71045; 71101; 71275; 74177; 75989; 80048; 80053; 81001; 83605; 83690; 83735; 83880; 84145; 84484; 85025; 85610; 85730; 87040; 87077; 87086; 87186; 87636; 93005; 96374; 96375; 97110; 97161; 97165; 97530; 99285; A9270; C1729; G0378; J0360; J0696; J2270; J2704; J3480; J7030; J7040; Q9967

== ENCOUNTER 2023-07-22 16:00 | Inpatient (IN) | payer MEDICARE, SELFPAY ==
--- NOTE | ~2023-07-22 | XR_ITS ---
EXAMINATION: XR abdomen/kub 1V INDICATION: Abdominal distention and diarrhea TECHNIQUE: Supine view of the abdomen is obtained. COMPARISON: 07/22/2023 FINDINGS: A large volume of colonic stool is present. No dilated loops of bowel are evident. No free intraperitoneal gas is identified. The visualized lung bases are clear. IMPRESSION: 1. Constipation. Reviewed, dictated and finalized at location B. [facility] IMPRESSION: 1. Constipation.
--- NOTE | ~2023-07-22 | CT_ITS ---
Non-contrast CT scan of the Abdomen and Pelvis Clinical indication: Ulcer Technique: 2.5 mm axial scans were obtained through the abdomen and pelvis without intravenous or or al contrast. Dose reduction technique was used on this scan by utilizing automated exposure control a nd iterative reconstruction technique. The dose-length product (DLP) was 215.32 mGy-cm. COMPARISON: 06/14/2023 Findings: Images through the lung bases reveal no abnormalities. There is no evidence of renal or ureteral calculi. The kidneys and the ureters are nondilated. The liver, spleen, pancreas, gallbladder, and adrenals appear normal. There is no aortic aneurysm. There is no evidence of bowel obstruction. Moderate to large amount of stool present. Images through the pelvis were performed. There is no evidence of ascites or lymphadenopathy. Urinary bladder is probably distended, but otherwise unremarkable. No definite pelvic mass seen. There is a large sacral decubitus ulcer measuring approximately 5 x 4.5 cm in extent, extending down to and abutting the posterior margin of the coccyx. No definite CT evidence for osteomyelitis. Impression: Large sacral decubitus ulcer, as detailed above. Moderate to large amount of stool. Correlate for constipation. Reviewed, dictated and finalized at [facility]. [place] [facility] Impression: Large sacral decubitus ulcer, as detailed above. Moderate to large amount of stool. Correlate for constipation.
[2023-07-22 16:06] VITALS: BP 108/80; PULSE 99; RESP 20; TEMP 35.9; O2SAT 99
[2023-07-22 19:47] VITALS: BP 124/92; PULSE 114; RESP 16; O2SAT 99
--- NOTE | 2023-07-22 20:55 | PC.NURSE ---
Pt arrived to ed with old stool matted to hair surrounding anus and vagina. Wound on coccyx was cleaned and irrigated with normal saline and a wet to dry dressing was applied.
[2023-07-22 21:26] VITALS: BP 125/60; PULSE 87; RESP 15; O2SAT 100
[2023-07-22 21:50] LABS: Hemoglobin 12.5 g/dL (12.0-15.0); Mean Corpuscular HGB Conc 32.9 g/dl (32-36); Mean Corpuscular Hemoglobin 30.3 pg (26-34); Mean Corpuscular Volume 92.2 fl (80-100); Mean Platelet Volume 8.8 fl (7.4-10.4); Platelet Count Result 363 k/mm3 (150-375); Red Blood Count 4.12 M/mm3 (4.2-5.4); Red Cell Distribution Width 14.6 % (11.5-14.5); White Blood Count 34.3 K/mm3 (4.5-10.0)
[2023-07-22 22:01] LABS: Band Neutrophils Percent 8 % (0-6); Lymphocytes Absolute Manual 0.68 K/mm3 (1.1-4.5); Lymphocytes Percent Manual 2 % (18-44); Metamyelocytes Percent 2 %; Platelet Estimate Adequate (Adequate); Total Cells Counted 100
[2023-07-22 22:02] LABS: Monocytes Absolute Manual 2.05 K/mm3 (0.1-0.90); Monocytes Percent Manual 6 % (3-9); Neutrophils Absolute Manual 30.87 K/mm3 (1.7-7.2); Neutrophils Percent Manual 82 % (46-73)
[2023-07-22 22:03] LABS: Schistocytes None Seen (NORMAL)
[2023-07-22 22:05] LABS: Alanine Aminotransferase 18 U/L (6-35); Albumin Level 3.3 g/dL (3.5-5.1); Alkaline Phosphatase 94 U/L (38-126); Anion Gap 8 mmol/L (8-16); Aspartate Amino Transferase 51 U/L (14-36); Bilirubin,Total 0.7 mg/dL (0.2-1.3); Blood Urea Nitrogen 60 mg/dL (7-17); Calcium 9.9 mg/dL (8.4-10.2); Carbon Dioxide 25 mmol/L (22-30); Chloride 98 mmol/L (98-107); Estimated Glomerular Filt Rate 53; Glucose 124 mg/dL (65-110); Potassium 3.7 mmol/L (3.4-5.0); Sodium 131 mmol/L (137-145)
[2023-07-22 22:47] VITALS: BP 141/75; PULSE 87; RESP 15; O2SAT 100
--- NOTE | 2023-07-23 01:45 | PM.IMHP ---
H&P: HPI History of Present Illness Date/Time: 07/23/23 01:45 Chief Complaint: Generalized weakness. Narrative: This is an 83-year-old female with past medical history significant for gait disturbance, chronic kidney disease, Parkinson's disease, recurrent falls, patient has been bed ridden, lives at home with son and who are her caregivers. Patient was brought for evaluation due to worsening decubitus ulcer. History has been obtained from son and were at bedside. Patient is unable to provide any history. Son and tell me that they have started hospice proceedings in the outpatient setting and would like to continue while in the hospital. Review of Systems Review of Systems: ROS unobtainable: Yes unobtainable due to medical condition (Dementia) [facility] Past Medical History Medical History Balance disorder Benign essential hypertension Chronic kidney disease, stage 3 Depression with anxiety Gait disturbance Open-angle glaucoma of both eyes Oral cancer (06/2019) Status post resection and chemoradiation. Osteopenia after menopause Overactive bladder Parkinson's disease Surgical History Surgical History History of ankle surgery Left. History of appendectomy History of hysterectomy History of oral surgery Resection of oral cancer with right neck dissection. History of skin graft Family History Family History Father Depression, Onset Age: 70 Hypertension Suicide Son Factor 5 Leiden mutation, heterozygous Daughter Factor 5 Leiden mutation, heterozygous Mother Cancer Social History Social History Social History: Surrogate medical decision maker: Andrea Martinez, spouse. Code status: Full code. Smoking packs per day: 0.5 Smoking cigarettes per day: 10.0 Years smoked: 4 Smoking pack-years: 2.00 Smoking status: Former smoker Tobacco type: cigarettes Second hand tobacco smoke exposure: Yes Smoking end date: 09/17/69 Alcohol intake: never Substance use: never Substance use type: does not use Lack of Transportation: No Lack of Food: Never True Current Housing: I Have Housing Concerned About Future Housing: No Difficulty Paying Gas/Electric Bills: No Difficulty Paying for Meds: No Currently Unemployed: No Education: Bachelor's Degree Difficulty w/ Childcare or Family Care: No Additional living arrangements comments: Lives with spouse in [place]. 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 care concerns: No Meds Home Medications and Allergies Home Medications Medication Instructions Recorded Confirmed Type carbidopa 25 mg-levodopa 100 mg 2 tablet PO QID 06/28/20 06/14/23 History tablet brimonidine 0.2 %-timolol 0.5 % 1 drp ophthalmic (eye) BID 07/28/20 06/14/23 History eye drops (Combigan) bimatoprost 0.01 % eye drops 1 drp EACH EYE DAILY 01/19/23 06/14/23 History (Lumigan) trospium 20 mg tablet 40 mg PO BID 01/19/23 06/14/23 History docusate sodium 100 mg capsule 100 mg PO BID PRN Constipation #30 01/21/23 06/14/23 Rx (Dulcolax Stool Softener caps (docusate)) nifedipine 30 mg tablet,extended 30 mg PO DAILY #90 tabs 04/18/23 06/14/23 Rx release Benefiber Sugar Free (dextrin) 2 tsp PO BID 06/14/23 06/14/23 History One-A-Day Women's 50 Plus 1 gummy PO DAILY 06/14/23 06/14/23 History Zyrtec 10 mg PO DAILY 06/14/23 06/14/23 History cholecalciferol (vitamin D3) 50 50 mcg PO DAILY 06/14/23 06/14/23 History mcg (2,000 unit) tablet (Vitamin D3) acetaminophen 325 mg tablet (Mapap 650 mg PO Q4H PRN Mild Pain (1-3) 06/18/23 Rx (acetaminophen)) Or Fever #0 tabs lidocaine 5 % topical patch 1 patch transdermal DAILY #30 ea 06/18/23 Rx (Lidoderm) polyethylene glyc
--- NOTE | 2023-07-23 01:57 | ED.GENADULT ---
HPI - General Adult General Chief complaint: Skin/Abscess/Foreign Body Stated complaint: bed sore on right hip Time Seen by Provider: 07/22/23 20:33 History of Present Illness HPI narrative: Patient presents to the emergency department with her son and . She comes from home. She is bedbound and gradually deteriorating for her sons. However she recently developed an ulcer on her gluteus charmaine. Erodes down to the bone. Nurses cleaned her up upon arrival and she was covered in stool. Patient alert and pleasant. Family contributes the history Related Data Home Medications Medication Instructions Recorded Confirmed carbidopa 25 mg-levodopa 100 mg 2 tablet PO QID 06/28/20 06/14/23 tablet brimonidine 0.2 %-timolol 0.5 % 1 drp ophthalmic (eye) BID 07/28/20 06/14/23 eye drops (Combigan) bimatoprost 0.01 % eye drops 1 drp EACH EYE DAILY 01/19/23 06/14/23 (Lumigan) trospium 20 mg tablet 40 mg PO BID 01/19/23 06/14/23 Benefiber Sugar Free (dextrin) 2 tsp PO BID 06/14/23 06/14/23 One-A-Day Women's 50 Plus 1 gummy PO DAILY 06/14/23 06/14/23 Zyrtec 10 mg PO DAILY 06/14/23 06/14/23 cholecalciferol (vitamin D3) 50 50 mcg PO DAILY 06/14/23 06/14/23 mcg (2,000 unit) tablet (Vitamin D3) Allergies Allergy/AdvReac Type Severity Reaction Status Date / Time levofloxacin Allergy Unknown Rash Verified 06/28/23 10:43 prednisone Allergy Unknown Rash Verified 06/28/23 10:43 Sulfa (Sulfonamide Allergy Unknown Swelling Verified 06/28/23 10:43 Antibiotics) of Lip/Tongue/Throat sulfamethizole Allergy Unknown Rash Verified 06/28/23 10:43 sulfamethoxazole Allergy Unknown Rash Verified 06/28/23 10:43 trimethoprim Allergy Unknown Rash Verified 06/28/23 10:43 budesonide Allergy Swelling Verified 06/28/23 10:43 [From Rhinocort Aqua] of Lip/Tongue/Throat ciprofloxacin [From Cipro] Allergy Rash Verified 06/28/23 10:43 strawberry Allergy Rash Verified 10/12/23 10:43 nitrofurantoin AdvReac Intermediate nausea Verified 06/28/23 10:43 ropinirole AdvReac Diarrhea Verified 06/28/23 10:43 Review of Systems Review of Systems: Negative except what is documented in the [facility] Past Medical History Medical History Balance disorder Benign essential hypertension Chronic kidney disease, stage 3 Depression with anxiety Gait disturbance Open-angle glaucoma of both eyes Oral cancer (06/2019) Status post resection and chemoradiation. Osteopenia after menopause Overactive bladder Parkinson's disease Surgical History Surgical History History of ankle surgery Left. History of appendectomy History of hysterectomy History of oral surgery Resection of oral cancer with right neck dissection. History of skin graft Family History Family History Father Depression, Onset Age: 70 Hypertension Suicide Son Factor 5 Leiden mutation, heterozygous Daughter Factor 5 Leiden mutation, heterozygous Mother Cancer Social History Social History Social History: Surrogate medical decision maker: Andrea Martinez, spouse. Code status: Full code. Smoking packs per day: 0.5 Smoking cigarettes per day: 10.0 Years smoked: 4 Smoking pack-years: 2.00 Smoking status: Former smoker Tobacco type: cigarettes Second hand tobacco smoke exposure: Yes Smoking end date: 09/17/69 Alcohol intake: never Substance use: never Substance use type: does not use Lack of Transportation: No Lack of Food: Never True Current Housing: I Have Housing Concerned About Future Housing: No Difficulty Paying Gas/Electric Bills: No Difficulty Paying for Meds: No Currently Unemployed: No Education: Bachelor's Degree Difficulty w/ Childcare or Family Care: No Additional living arrangements comments: [place]
[2023-07-23] MEDS: VANCOMYCIN 1,000 MG/NS 250 ML 1,000 MG/250 ML BAG 250 MG IVPB (02:00)
[2023-07-23 02:44] VITALS: BP 139/71; PULSE 90; RESP 17; O2SAT 100
[2023-07-23 03:01] LABS: Lactic Acid Reflex 1.5 mmol/L (0.7-2.0)
[2023-07-23] MEDS: CEFEPIME 2 GM/NS 50 ML 2 GM/50 ML BAG IVPB (03:33)
[2023-07-23 03:42] VITALS: BP 129/95; PULSE 97; RESP 15; O2SAT 100
[2023-07-23 04:15] VITALS: BMI 16.0
[2023-07-23 04:16] VITALS: BP 135/63; PULSE 86; RESP 18; TEMP 36.4; O2SAT 100
--- NOTE | 2023-07-23 04:18 | ADMGEN ---
This patient, Ana Luisa Martinez, was admitted to Medical Room 246-01. Patient/family oriented to hospital policies and general routines including ID bracelet, bed and alarms, visiting hours, pain management, procedures, bathroom and other care routines, personal items, smoking policy, room service/diet, and visiting hours. Information on how to activate the Rapid Response Team has been discussed. Patient/Family are encouraged to report perceived risks to care and to ask questions if they do not understand what they are told or what they should do.
[2023-07-23 05:17] LABS: Toxigenic C. Diff POSITIVE (NEGATIVE)
[2023-07-23] MEDS: DEXTROSE 5%/0.45% SOD CHL 1,000 ML 65 ML IV CONT ×2 (06:36→22:32)
--- NOTE | 2023-07-23 07:01 | P.PNIM_ITS ---
Progress Note: A&P Assessment and Plan (1) Decubitus ulcer: Qualifiers: Pressure injury location: sacral region Pressure injury stage: pressure injury of deep tissue Qualified Code(s): L89.156 - Pressure-induced deep tissue damage of sacral region Code(s): L89.90 - Pressure ulcer of unspecified site, unspecified stage Status: Acute Assessment and Plan: 07/23/23:(copied from chart) * Admit to regular floor * Started on cefepime and vanc * General surgery consult * Supportive care 07/23/23: * Large decubitus wound with gauze packing and ABD dressing to coccyx, with extension to the bone, stage III to stage IV presentation * Continue with cefepime and vancomycin for now until after has a chance to speak with [facility] about comfort measures versus full treatment. * Will DC general surgery consult for now as is lean more toward hospice care and comfort * Continue pain control * Turn patient every 2 hours * Patient is bedbound * Wound consult for appropriate dressing changes and treatment * Case coordination reaching out to [facility] [place] today for further discussion of inpatient versus outpatient hospice per family's wishes. Will await their recommendations. (2) Osteomyelitis: Qualifiers: Osteomyelitis location: unspecified site Osteomyelitis type: other Qualified Code(s): M86.8X9 - Other osteomyelitis, unspecified sites Code(s): M86.9 - Osteomyelitis, unspecified Status: Acute Assessment and Plan: 07/23/23:(copied from chart) * A started on cefepime and vanc 07/23/2023: * CT scan ruling out osteomyelitis. * Will continue with cefepime and vancomycin as her white blood cell count was 34.3 and is now coming down to 23.5 after antibiotic therapy (3) Generalized weakness: Code(s): R53.1 - Weakness Status: Acute Assessment and Plan: 07/23/23:(copied from chart) * Please secondary to advanced disease 07/23/2023: * Generalized weakness and deconditioning noted, prognosis guarded (4) Chronic kidney disease, stage 3: Code(s): N18.30 - Chronic kidney disease, stage 3 unspecified Status: Acute Assessment and Plan: 07/23/23:(copied from chart) * Continue to monitor BUN and creatinine 07/23/2023: * BUN 56, creatinine 0.7 today * Continue to monitor labs if fully treating * Will place a Trevizo catheter for comfort (5) Unspecified severe protein-calorie malnutrition: Code(s): E43 - Unspecified severe protein-calorie malnutrition Status: Acute Assessment and Plan: 07/23/23:(copied from chart) * Poor per orally intake 07/23/2023: * Patient is very deconditioned, will await talk with [facility] [place] today before further orders (6) Gait disturbance: Code(s): R26.9 - Unspecified abnormalities of gait and mobility Status: Acute Assessment and Plan: 07/23/23:(copied from chart) * Patient is bed ridden 07/23/2023 * Patient is bed ridden for the past month however since her last admission * Turn patient q.2 hours Time Spent With Patient Time with patient: Greater than 35 minutes Subjective Date/time seen: 07/23/23 07:01 Interval history: Interval history This is an 83 year old female who presented to the hospital on 07/23/23 with a worsening decubitus ulcer. Work up in hospital includes a CT scan of the abdomen/pelvis which revealed a large sacral decubitus ulcer measuring 5x4.5 cm and extends down to and abutting the posterior margin of the coccyx, no evidence of osteomyelitis, moderate to
--- NOTE | 2023-07-23 07:01 | PM.IMPN ---
Progress Note: A&P Assessment and Plan (1) Decubitus ulcer: Qualifiers: Pressure injury location: sacral region Pressure injury stage: pressure injury of deep tissue Qualified Code(s): L89.156 - Pressure-induced deep tissue damage of sacral region Code(s): L89.90 - Pressure ulcer of unspecified site, unspecified stage Status: Acute Assessment and Plan: 07/23/23:(copied from chart) Admit to regular floor Started on cefepime and vanc General surgery consult Supportive care 07/23/23: Large decubitus wound with gauze packing and ABD dressing to coccyx, with extension to the bone, stage III to stage IV presentation Continue with cefepime and vancomycin for now until after has a chance to speak with [facility] about comfort measures versus full treatment. Will DC general surgery consult for now as is lean more toward hospice care and comfort Continue pain control Turn patient every 2 hours Patient is bedbound Wound consult for appropriate dressing changes and treatment Case coordination reaching out to [facility] today for further discussion of inpatient versus outpatient hospice per family's wishes. Will await their recommendations. (2) Osteomyelitis: Qualifiers: Osteomyelitis location: unspecified site Osteomyelitis type: other Qualified Code(s): M86.8X9 - Other osteomyelitis, unspecified sites Code(s): M86.9 - Osteomyelitis, unspecified Status: Acute Assessment and Plan: 07/23/23:(copied from chart) A started on cefepime and vanc 07/23/2023: CT scan ruling out osteomyelitis. Will continue with cefepime and vancomycin as her white blood cell count was 34.3 and is now coming down to 23.5 after antibiotic therapy (3) Generalized weakness: Code(s): R53.1 - Weakness Status: Acute Assessment and Plan: 07/23/23:(copied from chart) Please secondary to advanced disease 07/23/2023: Generalized weakness and deconditioning noted, prognosis guarded (4) Chronic kidney disease, stage 3: Code(s): N18.30 - Chronic kidney disease, stage 3 unspecified Status: Acute Assessment and Plan: 07/23/23:(copied from chart) Continue to monitor BUN and creatinine 07/23/2023: BUN 56, creatinine 0.7 today Continue to monitor labs if fully treating Will place a Trevizo catheter for comfort (5) Unspecified severe protein-calorie malnutrition: Code(s): E43 - Unspecified severe protein-calorie malnutrition Status: Acute Assessment and Plan: 07/23/23:(copied from chart) Poor per orally intake 07/23/2023: Patient is very deconditioned, will await talk with [facility] today before further orders (6) Gait disturbance: Code(s): R26.9 - Unspecified abnormalities of gait and mobility Status: Acute Assessment and Plan: 07/23/23:(copied from chart) Patient is bed ridden 07/23/2023 Patient is bed ridden for the past month however since her last admission Turn patient q.2 hours Time Spent With Patient Time with patient: Greater than 35 minutes Subjective Date/time seen: 07/23/23 07:01 Interval history: Interval history This is an 83 year old female who presented to the hospital on 07/23/23 with a worsening decubitus ulcer. Work up in hospital includes a CT scan of the abdomen/pelvis which revealed a large sacral decubitus ulcer measuring 5x4.5 cm and extends down to and abutting the posterior margin of the coccyx, no evidence of osteomyelitis, moderate to large amount of stool representing constipation. Patient tested positive for C-difficile. UA shown 2+ protein, trace ketones, 2+ blood, 3+ leukocytes, +bacteria, many urine RBC/WBC's. WBC 34.3, Hgb 12.5, Hct 38.0, Absolute neutrophils 30.87, Na+ 131, K+ 3.7, BUN 60, Creatinine 1.0, Bicarb 25, Anion gap 8.0, BG ranging 103-124, Lactic acid 1.5, AST 51. Blood cultures were obtained. Patient started on IVF and given a dose of Vancomy
[2023-07-23 07:40] LABS: Basophils Absolute Auto 0.1 K/mm3 (0.0-0.1); Basophils Percent Auto 0.6 % (0.2-1.2); Hematocrit 35.8 % (37.0-47.0); Hemoglobin 11.9 g/dL (12.0-15.0); Immature Granulocyte Absolute 1.51 K/mm3 (0.00-0.031); Immature Granulocyte Percent A 6.4 % (0-0.5); Lymphocytes Percent Auto 1.3 % (18.3-44.2); Mean Corpuscular HGB Conc 33.2 g/dl (32-36); Mean Corpuscular Hemoglobin 30.1 pg (26-34); Mean Corpuscular Volume 90.6 fl (80-100); Mean Platelet Volume 8.8 fl (7.4-10.4); Monocytes Percent Auto 4.3 % (2.6-8.5); Neutrophils Absolute Auto 20.6 K/mm3 (1.3-6.7); Neutrophils Percent Auto 87.4 % (45.5-73.1); Platelet Count Result 364 k/mm3 (150-375); Red Blood Count 3.95 M/mm3 (4.2-5.4); Red Cell Distribution Width 14.3 % (11.5-14.5); White Blood Count 23.5 K/mm3 (4.5-10.0)
[2023-07-23 07:50] LABS: Alanine Aminotransferase 16 U/L (6-35); Alkaline Phosphatase 94 U/L (38-126); Anion Gap 2 mmol/L (8-16); Aspartate Amino Transferase 69 U/L (14-36); Bilirubin,Total 0.7 mg/dL (0.2-1.3); Blood Urea Nitrogen 56 mg/dL (7-17); Calcium 9.6 mg/dL (8.4-10.2); Carbon Dioxide 34 mmol/L (22-30); Chloride 96 mmol/L (98-107); Estimated CRCL calculation 34 ml/min; Estimated Glomerular Filt Rate > 60; Glucose 112 mg/dL (65-110); Magnesium 2.4 mg/dL (1.6-2.3); Phosphorus 3.6 mg/dL (2.5-4.5); Potassium 3.7 mmol/L (3.4-5.0); Sodium 132 mmol/L (137-145)
[2023-07-23 08:04] LABS: Band Neutrophils Percent 2 % (0-6); Monocytes Absolute Manual 0.23 K/mm3 (0.1-0.90); Monocytes Percent Manual 1 % (3-9); Neutrophils Absolute Manual 23.26 K/mm3 (1.7-7.2); Neutrophils Percent Manual 97 % (46-73); Total Cells Counted 100
[2023-07-23 08:05] LABS: Hypochromasia 1+ (NORMAL); Platelet Estimate Adequate (Adequate); Schistocytes None Seen (NORMAL); Smudge Cells FEW; Target Cells 1+ (NORMAL)
--- NOTE | 2023-07-23 12:49 | PCDIET ---
Nutrition note: Pt screened for low BMI (16) and pressure injury to sacrum. NPO. Hospice is currently being arranged. No nutrition intervention needed at this time. Consult if nutrition needs arise. Continue to monitor for length of stay, additional needs.
--- NOTE | 2023-07-23 12:54 | PCWOUND ---
WOCN NOTE Received report patient to go hospice. Staff to let wound care know if this changes and assessment is needed.
[2023-07-23] MEDS: MORPHINE SULFATE ORAL CONC SOL (*CRX) 10 MG/0.5 ML SYRINGE 5 MG SUBLINGUAL ×2 (14:45→19:52)
[2023-07-23 14:52] VITALS: BP 131/62; PULSE 94; RESP 18; TEMP 36.7; O2SAT 100
[2023-07-23 20:19] VITALS: BP 116/53; PULSE 88; RESP 18; TEMP 36.1; O2SAT 100
[2023-07-24 03:51] VITALS: BP 128/67; PULSE 77; RESP 18; TEMP 36.3; O2SAT 99
--- NOTE | 2023-07-24 06:56 | PM.DS ---
DS: Admitting Diagnosis Discharge Date 07/24/23 Admitting Diagnosis Decubitus ulcer osteomyelitis generalized weakness chronic kidney disease stage 3 unspecified severe protein calorie malnutrition gait disturbance DS: Discharge Diagnosis Discharge Diagnosis (1) Decubitus ulcer: Qualifiers: Pressure injury location: sacral region Pressure injury stage: pressure injury of deep tissue Qualified Code(s): L89.156 - Pressure-induced deep tissue damage of sacral region Code(s): L89.90 - Pressure ulcer of unspecified site, unspecified stage Status: Acute (2) Osteomyelitis: Qualifiers: Osteomyelitis location: unspecified site Osteomyelitis type: other Qualified Code(s): M86.8X9 - Other osteomyelitis, unspecified sites Code(s): M86.9 - Osteomyelitis, unspecified Status: Acute (3) Generalized weakness: Code(s): R53.1 - Weakness Status: Acute (4) Chronic kidney disease, stage 3: Code(s): N18.30 - Chronic kidney disease, stage 3 unspecified Status: Acute (5) Unspecified severe protein-calorie malnutrition: Code(s): E43 - Unspecified severe protein-calorie malnutrition Status: Acute (6) Gait disturbance: Code(s): R26.9 - Unspecified abnormalities of gait and mobility Status: Acute DS: Summary Hospital Course Reason for hospitalization: decubitus ulcer weakness Hospital Course: This is an 83-year-old female who presented to the hospital on 07/23/2023 with a worsening decubitus ulcer. Workup in the hospital included a CT scan of the abdomen pelvis which revealed a large sacral decubitus ulcer measuring 5 x 4.5 cm extending down to and abutting the posterior margins of the coccyx but no evidence of osteomyelitis was seen. Patient also tested positive for C diff. UA shown 2+ protein, trace ketones, 2+ blood, 3+ leukocytes, 4+ bacteria, many urine rbc's and wbc's. Her white count on admission was 34.3 with absolute neutrophil count of 30.87 her lactic acid was 1.5. Blood cultures were obtained patient was started on IV fluids and given a dose of vancomycin and cefepime. General surgery was consulted about the wound initially. However after speaking with the about her condition he he wanted to make her more comfortable and hospice. We went ahead and canceled the general surgery consult. We spoke with the case coordination team and they made a call out to [facility], patient was evaluated in the hospital yesterday and will be placed on home hospice going forward. In light of the new orders of comfort/hospice care we went ahead and discontinued her vancomycin and cefepime and any more labs to be drawn. Vital signs are stable, she is on room air, she was afebrile. Patient is stable for discharge to hospice care with [facility]. Status at Discharge Cognitive/behavioral status at discharge: Alert, oriented x0 Functional status at discharge: bed bound Overall status at discharge: patient is not back to baseline Time Spent with Patient Time attestation: Total time spent providing and/or coordinating discharge services: Time spent: Greater than 30 minutes Exam Narrative: General: In no acute distress, chronically ill appearing, weak, frail Head: atraumatic, pleasantly confused Eyes: EOMI, PERRLA, sclera injected ENT: dry mucous membranes, nasal passages clear Neck: supple, no JVD, no adenopathy, trachea midline Cardiac: Normal S1 and S2. No murmur, gallops or friction rubs, peripheral pulses intact. Respiratory: Lungs clear to auscultation, no adventitious lung sounds Gastrointestinal: soft, non-distended, non-tender, hyperactive bowel sounds. Incontinent with liquid stools : voiding without difficulty. Incontinent Extremities: moves all extremities well, no edema, weakness noted BUE, BLE Skin:Large decubitus ulcer on coccyx with guaze packing, covered with ABD pad, stage 3-stage 4 Neuro: Alert and oriented times 0, resti
== END 2023-07-24 13:30 | disposition hospice, home (50) | DRG 592 ==
LOC: ANHED 07-23 02:03 → ANH2MED 07-23 03:17
PROVIDERS: Admitting Provider Internal Medicine; Emergency Provider Emergency Medicine; PCP Family Medicine; Visit Provider Nurse Practitioner Acute Care
DX: L89.154 Pressure ulcer of sacral region, stage 4 (principal); E43 Unspecified severe protein-calorie malnutrition; Z68.1 Body mass index [BMI] 19.9 or less, adult; B96.89 Other specified bacterial agents as the cause of diseases classified elsewhere; F41.8 Other specified anxiety disorders; G20.A1 Parkinson's disease without dyskinesia, without mention of fluctuations; H40.10X0 Unspecified open-angle glaucoma, stage unspecified; I12.9 Hypertensive chronic kidney disease with stage 1 through stage 4 chronic kidney disease, or unspecified chronic kidney disease; K59.00 Constipation, unspecified; N18.30 Chronic kidney disease, stage 3 unspecified; Z85.819 Personal history of malignant neoplasm of unspecified site of lip, oral cavity, and pharynx; Z90.49 Acquired absence of other specified parts of digestive tract; Z90.710 Acquired absence of both cervix and uterus; Z87.891 Personal history of nicotine dependence; Z74.01 Bed confinement status
CPT/HCPCS: 36415; 74018; 74176; 80053; 83605; 83735; 84100; 85025; 87040; 87493; 99285; A9270; J0692; J3370